=== PATIENT | female | born 1960 | race Caucasian/White ===

== ENCOUNTER → 2017-11-22 | Outpatient (CLI) | payer OTHER ==
[~2017-11-22] MED LIST: ALDACTONE25 MG PO; ALEVE220 MG PO; ANTIBIOTIC; ASPIR 8181 MG PO; ASPIRIN EC81 M1 PO; BENTYL 20 MG TA20 M1 PO; BYDUREON2 MG SQ; CELEXA20 MG PO; COZAAR 50 MG TA50 M1 PO; CRESTOR10 MG PO; CRESTOR20 MG PO; EFFIENT10 MG PO; GLIPIZIDE 10 MG10 MG PO; GLUCOPHAGE XR750 MG PO; GLUCOPHAGE500 MG PO; GLYBURIDE 5 MG T5 M1 PO; HYZAAR 100-12.1 EACH PO; LEVAQUIN 500 M500 M2 PO; LISINOPRIL10 MG PO; LISINOPRIL20 MG PO; NEURONTIN 300300 M1 PO; NITROGLYCERIN0.4 MG SUBLING; NITROQUICK0.4 MG SL; NORCO 5-325 TA1 EAC1 PO; NORVASC10 MG PO; OMEPRAZOLE40 MG PO; OXYCODONE-ACET1 EACH PO; PERCOCET 5-3251 EACH PO; PERCOCET PO; PREDNISONE 20 M20 MG PO; TOPROL XL100 MG PO; TOPROL XL25 MG PO; TOPROL XL50 MG PO; VENTOLIN HFA 1818 GM INH; XANAX 0.5 MG0.5 M1 PO; XANAX 0.5 MG0.5 MG PO
--- NOTE | 2017-11-28 10:11 | PAINCON ---
[address] [address] PAIN MANAGEMENT CONSULTATION Name: DM HERNADEZ Room: [facility]#: [id number] Admission: 11/22/17 Attend Phys: Vito Bowman MD Discharge: Date of : 62 Report #: [id number] THIS REPORT FOR: //name// CC: Steve Bowman DATE OF SERVICE: 11/22/2017 CHIEF COMPLAINT: Pain in the low back area as well as pain down into my legs. FOLLOWUP HISTORY: The patient is a 57-year-old female who has been referred to the Pain Clinic because of pain and discomfort with some pain radiating down into the lower portion of her back bilaterally. The patient denies any significant trauma to start the event. She notes that she is having pain in the lower portion of her back, which she describes as sharp and radiates down into the lower portion of her back. She has pain in the lower portion that radiates down into the anterior portion of her thighs. She notes that if she stands for a length of time at home at the stove, putting on makeup, doing other chores that her pain becomes problematic. Notes that the pain improves if she goes and sits down. After about 5 minutes, she notices her improves and she notices that she can continue. She has difficulty walking for periods of time. If she walks too long, she notes pain and discomfort in the anterior portion of her thighs. When she sits down, the pain and discomfort improves. Notes that if she is in a shopping center, she walks with a cart and leans forward on the cart. When she does this, she has less problems. Standing in line and waiting to check out can cause pain and discomfort, which radiates down into her legs and involves the anterior portion of her legs. Also, has some generalized soreness in the lower portion of her back. Pressing once hand in the posterior portion down around her hip can be problematic. She has some discomfort if she lies on her left hip and there is a sense of soreness and discomfort on the "top portion of her hip bone." She describes it as steady, shooting and rates as 5/10 at this juncture. She has had some pain on occasion down in the bottom of her legs. Sometimes this takes place in bed. She is not sure whether or not this is from muscle cramps and denies that she is being treated for restless legs syndrome. She does have diabetes. Has had some problems with her heart and has had some stents placed. 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 The patient fell a few weeks ago. She noted the pain radiating down into her low back and into her left hip as well as in the groin area. ALLERGIES: IBUPROFEN/ADVIL. CURRENT MEDICATIONS: Ventolin 2 puffs q.6h. p.r.n., Norvasc 10 mg daily, aspirin 81 mg chewable, Celexa 20 mg b.i.d., Bentyl 20 mg q.i.d., Hyzaar 100/12.5 tablets, metformin 750 mg b.i.d., metoprolol 25 mg at bedtime, [facility] [address] [place] [address] PAIN MANAGEMENT CONSULTATION Name: DM HERNADEZ [id number] Admission: 11/22/17 Attend Phys: Vito Bowman MD Discharge: Date of : 62 Report #: [id number] Naprosyn/Aleve 220 q.8h. p.r.n., nitroglycerin 0.4 mg sublingual, omeprazole 40 mg daily, oxycodone 5/325 q.6h. p.r.n. pain, and Crestor 10 mg. PAST MEDICAL HISTORY: Bronchitis, lumbar radicular pain, meralgia paresthetica, chronic low back pain, coronary artery disease, depression/anxiety, irritable bowel syndrome, hyperlipidemia, hypertension, hypercholesterolemia, and diabetes. FAMILY HISTORY: No family history of major medical illness. SOCIAL HISTORY: She is . 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 She is working at this juncture. Tobacco use, smoked and quit smoking 15 years ago. Her mother and brother within about 6 weeks of each other. This was a very stressful event. About 3 years ago, she resumed smoking and has had difficult time smoking since then. Smokes 1 pack of cigarettes per day at this juncture. Has been trying to stop smoking. Denies any significant alcohol intake. PAST SURGICAL HISTORY: Four stent placements in her heart in 2011 and 2013 and cholecystectomy removal in 2009. REVIEW OF SYSTEMS: Questionnaire in the chart indicate generally good health, fatigue and weakness, earache and drainage, chronic sinus problems, heart trouble, kidney stones, muscle pain and cramps, back pain, difficulty walking, otherwise unremarkable. RADIOLOGIC DATA: 1. MRI of the lumbar spine dated 11/05/2017 reveals L2-L3 facet and ligamentous hypertrophy is seen. There is minimal diffuse bulging annulus. Thecal sac measures 10 mm in AP diameter. Neural foramen are patent. 2. L3-L4 facet and ligamentous hypertrophy is seen. There is a minimal diffuse bulging annulus. Thecal sac measures 10 mm AP. No significant foraminal stenosis. 3. L4-L5, there is a 2 mm anterolisthesis of L4. Facet and ligamentous hypertrophy seen. There is a diffuse bulging annulus. The thecal sac measures 8 mm in AP diameter. No significant foraminal stenosis. 4. L5-S1 facet and ligamentous hypertrophy is seen. There is a minimal diffuse bulging annulus. The thecal sac measures 11 mm AP. No significant foraminal stenosis. Impression, mild degenerative changes, x-ray of the lumbar spine three views dated 04/17/2017, the vertebral bodies are normal in height. Interspaces are normal in width. Marked hypertrophic facet joint disease is noted at L4-L5 and L5-S1. Milder changes are seen at L3-L4. Pedicle and transverse processes are normal. SI joints are unremarkable. The adjacent abdomen is unremarkable. Moderate calcification is identified in the aorta. There is evidence of a previous cholecystectomy. PAIN ASSESSMENT: [place] [address] PAIN MANAGEMENT CONSULTATION Name: DM HERNADEZ Room: [facility]#: [id number] Admission: 11/22/17 Attend Phys: Vito Bowman MD Discharge: Date of : 62 Report #: [id number] 1. No significant history of osteoarthritis. No significant history of rheumatoid arthritis. 2. Height 5 feet 5 inches, weight 210 pounds, BMI is 35. 3. Vital signs: Blood pressure 141/67, pulse 75, respiratory rate 16, room air saturation 95%, and temperature 97.8. 4. Pain intensity rated as 7. 5. Fall risk. The patient fell about 2 weeks ago. She is having some pain and discomfort as a result of that. She denies dizziness as a reason. The patient is not on blood thinners. 6. History of hypertension. The patient is being treated appropriate for blood pressure. 7. Opioid therapy greater than 6 weeks. The patient has been receiving some opioid medications over the last 2 weeks after the fall, has not signed a contract with us. 8. Risk assessment tool, pain impact score regarding general activity, mood, walking ability, work relationships, sleep and enjoyment of life is rated at 42/70. 9. The patient does continue to smoke. She has been trying to decrease smoking. We discussed with her the possible complications given that she does already have a prior history of cardiac disease. Alcohol amount is in frequent. PHYSICAL EXAMINATION: GENERAL: The patient is a well-developed, somewhat obese white female. Does appear her stated age. Does have some smell of tobacco in the room. She is alert and oriented x 3. Appears appropriate, but somewhat flat affect. HEENT: Head is atraumatic. Ears, hearing appears normal. No nasal congestion or complaints. Extraocular eye muscles are tachycardia. Sclerae nonicteric. NECK: Without adenopathy or JVD. No masses are appreciated. LUNGS: Clear to auscultation. HEART: Regular rate. Normal S1, S2. ABDOMEN: Protuberant without organomegaly. MUSCULOSKELETAL: Alignment appears within normal limits without significant scoliosis, kyphosis, or lordosis. The patient does walk with an antalgic gait. She is able to stand momentarily on her heels and on her toes. Forward flexion to 45 degrees is limited secondary to some back discomfort as well as some hip soreness and low back soreness. Lumbar extension causes some increased pain in her back and down to the lower portion of her legs. Left and right lateral rotation was somewhat, but not very problematic. NEUROLOGICAL: The upper extremities judged to be 5/5 with muscle strength. Deep tendon reflexes are trace for biceps, triceps, and brachioradialis. The patient states that her sensation to light touch and pinprick are within normal limits. Deep lower extremity, the patient complains of pain and discomfort across the left iliac crest. Complains of some discomfort down into the left groin area. Has pain and discomfort with prolonged standing and walking in the anterior L3-L4 area of her thighs. Deep tendon reflexes are +2 bilaterally and trace to absent in the ankles bilaterally. No significant edema [place] [address] PAIN MANAGEMENT CONSULTATION Name: DM HERNADEZ Room: [facility]#: [id number] Admission: 11/22/17 Attend Phys: Vito Bowman MD Discharge: Date of : 62 Report #: [id number] lower extremities. Muscle strength is judged to be 5/5 in the major muscle groups of the lower extremities. Does complain of pain and worsening of her pain with prolonged standing, walking in the anterior portion of her thighs. No clonus is noted. Anterior spring test is negative. Does have some pain and discomfort in the area when we were pressing on the anterior portion of her iliac crest. Lateral compression of the hips was not problematic. The patient does have some soreness to palpation in the paraspinous muscle area on the left as well as the right in the area of the posterior superior iliac spines. Pressure over the left iliac crest cause the patient to complain and withdraw with complaint of discomfort in the area. Steffen's sign was negative. The patient does have some soreness and decreased mobility in her right hip. IMPRESSION: 1. Low back pain with pain in the anterior thigh areas with prolonged standing and MRI with narrowing in the L4-L5 distribution. 2. History of chronic bronchitis. 3. History of meralgia paresthetica. 4. Tobacco use. 5. Coronary artery disease, status post 4 stents placed in the past. 6. Depression/anxiety. 7. Irritable bowel syndrome. 8. Hyperlipidemia. 9. Hypertension. 10. Hypercholesterolemia. 11. Diabetes. RECOMMENDATIONS: We discussed treatment options with the patient. She does have pain and discomfort in the lower portion of her back with pain radiating down into the anterior portion of her thighs with activity. Her clinical findings are consistent with spinal stenosis. She does have diabetes. States that she is monitoring her blood sugars. We explained that an injection with steroid medications can increase ones blood glucose level. States that she has taken a Medrol Dosepak, which did help improve her pain somewhat without significant changes in her blood sugars. We have discussed the problem with continuous smoking given her cardiac history. We would recommend that she continue to try to decrease this. May consider use of Wellbutrin as one of her antidepressant medications given that Wellbutrin sometimes has been helpful with some patients in decreasing their desire to smoke. The patient will return to the Pain Clinic after precertification at which time we will consider an epidural steroid injection. We have discussed the possible complications of the procedure. A model was used to indicate the area of probable pathology. We reviewed her MRI with her. A video regarding the pathophysiology of lumbar radiculopathy was provided. The patient states that she understands and would like to proceed with an epidural steroid injection at [place] [address] PAIN MANAGEMENT CONSULTATION Name: DM HERNADEZ Room: [facility]#: [id number] Admission: 11/22/17 Attend Phys: Vito Bowman MD Discharge: Date of : 62 Report #: [id number] We would like to thank you for letting us to participate in her care. We hope she continues to improve. <ELECTRONICALLY SIGNED> By: Vito Bowman MD 11/28/17 1011 1302 1417N. Bassem Bowman MD /
== END ==
LOC: M.PC 01:45
DX: M54.5 Low back pain (principal); I25.10 Atherosclerotic heart disease of native coronary artery without angina pectoris; E78.5 Hyperlipidemia, unspecified; I10 Essential (primary) hypertension; E78.00 Pure hypercholesterolemia, unspecified; E11.9 Type 2 diabetes mellitus without complications; F17.200 Nicotine dependence, unspecified, uncomplicated; F32.9 Major depressive disorder, single episode, unspecified; F41.9 Anxiety disorder, unspecified; Z95.5 Presence of coronary angioplasty implant and graft; Z90.49 Acquired absence of other specified parts of digestive tract

== ENCOUNTER → 2017-11-27 | Outpatient (CLI) | payer OTHER ==
--- NOTE | 2017-12-26 08:24 | PAINCON ---
[address] [address] PAIN MANAGEMENT CONSULTATION Name: DM HERNADEZ Room: [facility].#: [id number] Admission: 11/27/17 Attend Phys: Vito Bowman MD Discharge: Date of : 62 Report #: [id number] THIS REPORT FOR: //name// CC: Steve Bowman DATE OF SERVICE: 11/27/2017 CHIEF COMPLAINT: Here for epidural steroid injection. FOLLOWUP HISTORY: The patient is a 57-year-old female who has been seen in the pain clinic because of lumbar radiculopathy. She has returned today for an epidural steroid injection. As you recall, she has pain involving the lower portion of her back with pain radiating down to the posterior portion of her back. Standing for prolonged periods of time can be problematic. She does have some spinal stenosis with 8-mm AP diameter at the L4-L5 interspace. She notes that her pain becomes problematic after about 5 minutes of activity. After sitting down, she notes that her pain improves. She has returned today for an epidural steroid injection. ALLERGIES: IBUPROFEN/ADVIL. CURRENT MEDICATIONS: Ventolin 2 puffs q.6h. p.r.n., Norvasc 10 mg daily, aspirin 81 mg chewable, Celexa 20 mg b.i.d., Bentyl 20 mg q.i.d., Hyzaar 100/12.5 mg tablets, metformin, metoprolol 25 mg at bedtime, Naprosyn/Aleve 220 mg p.r.n., nitroglycerin 0.4 mg sublingual, omeprazole 40 mg daily, oxycodone 5/325 q.6h. p.r.n. pain, and Crestor 10 mg PAIN CLINIC ASSESSMENT: 1. The patient is not being treated for rheumatoid arthritis or osteoarthritis. 2. Height 5 feet 5 inches, weight 214 pounds, BMI is 35. 3. VITAL SIGNS: Blood pressure 123/59, heart rate 75, respiratory rate 16, room air saturation 97%, and temperature 98.2. 4. Pain intensity 7. 5. The patient is not on a blood thinner. 6. History of hypertension. The patient is being treated for hypertension. 7. Opioid therapy greater than 6 weeks. The patient is not receiving opioid medications greater than 6 weeks. 8. Risk assessment tool. 9. Functional assessment tool. 10. The patient denies use of drugs, tobacco use. The patient continues to smoke cigarettes and states that she is having a difficult time, but trying to decrease her tobacco use, alcohol. The patient does not [place] [address] PAIN MANAGEMENT CONSULTATION Name: SATYADM Room: [facility]#: [id number] Admission: 11/27/17 Attend Phys: Vito Bowman MD Discharge: Date of : 62 Report #: [id number] PHYSICAL EXAMINATION: GENERAL: The patient is a well-developed and well-nourished white female. Appears her stated age. The patient is alert and oriented x 3. Her affect appears appropriate. HEENT: Normocephalic, atraumatic. Extraocular eye muscles intact. Hearing normal. Denies any nasal problems. Moist buccal membranes. NECK: Without adenopathy or bruits. ABDOMEN: Nontender. The patient has pain and discomfort, which radiates from the left low back area to the buttocks and in the L5 distribution along her left leg. There is some discomfort in the hip area. The patient has some discomfort in her groin area. IMPRESSION: 1. Low back pain with pain in the anterior thigh after prolonged standing and MRI showing narrowing of the L4-L5 distribution with 8-mm AP diameter. 2. History of chronic bronchitis. The patient continues to smoke. 3. History of meralgia paresthetica. 4. Continued tobacco use. 5. Coronary artery disease, status post 4 stents, which have been placed in the past. 6. Depression/anxiety. 7. Irritable bowel syndrome. 8. Hyperlipidemia. 9. Hypertension. 10. Hypercholesterolemia. 11. Diabetes. RECOMMENDATIONS: We discussed treatment options with the patient. Again, we discussed the possible complications associated with an epidural steroid injection. They include but are not limited to infection, increased muscle soreness, headache, bleeding, nerve damage and the patient elects to proceed. We have also discussed the use of tobacco. This can worsen back pain over the long run. She also has problems with her cardiac/circulatory system. She does have stents in place, decrease in the use of tobacco would be in her best interest. She elects to proceed with the injections. PROCEDURE NOTE: The patient was helped on to the examination table. Her back was sterilely prepped. A fluoroscope was used to identify the L4-L5 interspace. Anterior and lateral positioning was used. A 0.25% bupivacaine was infiltrated into this area. A 17-gauge Tuohy with loss of resistance technique was used to gain access to the epidural space. There was no CSF, heme or paresthesia. A total of 80 mg Depo-Medrol, 40 mg triamcinolone was injected. The patient tolerated the procedure well. There were no complications. She remained in the pain clinic for an appropriate amount of time. She will follow up in the future. A total of 88 seconds fluoroscopy time was used. A Band-Aid was placed injection site. The patient was then taken to the recovery room where she [facility] [address] [place] [address] PAIN MANAGEMENT CONSULTATION Name: DM HERNADEZ Room: [facility]#: [id number] Admission: 11/27/17 Attend Phys: Vito Bowman MD Discharge: Date of : 62 Report #: [id number] remained without problems. She will follow up in the near future. We would like to thank you for letting us participate in her care. We hope she continues to improve. <ELECTRONICALLY SIGNED> By: Vito Bowman MD 12/26/17 0824 1353 1618N. Bassem Bowman MD /nt
== END | disposition home or self-care (01) ==
LOC: M.PC 05:22
DX: M54.16 Radiculopathy, lumbar region (principal); I10 Essential (primary) hypertension; I25.10 Atherosclerotic heart disease of native coronary artery without angina pectoris; E11.9 Type 2 diabetes mellitus without complications; E78.5 Hyperlipidemia, unspecified; K58.9 Irritable bowel syndrome, unspecified; F32.9 Major depressive disorder, single episode, unspecified; F41.9 Anxiety disorder, unspecified; F17.210 Nicotine dependence, cigarettes, uncomplicated; Z88.8 Allergy status to other drugs, medicaments and biological substances; Z95.5 Presence of coronary angioplasty implant and graft; Z87.09 Personal history of other diseases of the respiratory system; Z79.899 Other long term (current) drug therapy; Z79.891 Long term (current) use of opiate analgesic

== ENCOUNTER → 2017-12-20 | Outpatient (CLI) | payer OTHER ==
--- NOTE | 2017-12-26 08:35 | PAINCON ---
[address] [address] PAIN MANAGEMENT CONSULTATION Name: MD HERNADEZ Room: [facility].#: [id number] Admission: 12/20/17 Attend Phys: Vito Bowman MD Discharge: Date of : 62 Report #: [id number] THIS REPORT FOR: //name// CC: Steve Bowman DATE OF SERVICE: 12/20/2017 FOLLOWUP COMPLAINT: The pain is still really bad. FOLLOWUP HISTORY: The patient is a 57-year-old female who has been seen in the pain clinic because of lumbar radiculopathy. She returns today with complaints of continued pain. She did note that the pain on 11/27/2017 was "great." She has noticed a slow return of pain and discomfort at this juncture. It involves her low back, down to her legs. She is experiencing what she describes as "electric shocks" and cramping. She has more pain in the hip than in the groin. She rates it as a 3/10. She is taking Aleve. 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 She would like to undergo an injection. 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 She finds that the oxycodone has been helpful. She claim greater than 50% improvement after the last injection. She continues to have some pain and discomfort with activities such as walking, standing, climbing stairs, prolonged sitting, lifting and bending. She finds that her medications, use of hot and cold can be beneficial as well. She does continue to use tobacco. ALLERGIES: ADVIL. MEDICATIONS: Current medications which are reviewed include albuterol 2 puffs q. 6 hours p.r.n., Norvasc 10 mg, aspirin 81 mg chewable, Celexa 20 mg b.i.d., Bentyl 20 mg q.i.d., Hyzaar 100/12.5 mg tablets, metformin 750 mg b.i.d., metoprolol 25 mg at bedtime, Naprosyn/Aleve 220 p.r.n., nitroglycerin 0.4 mg sublingual, omeprazole 40 mg daily, oxycodone 5/325 p.r.n., Crestor 10 mg. PAIN CLINICAL ASSESSMENT: 1. History of osteoarthritis/rheumatoid arthritis. The patient is not being treated for either of these. 2. Blood pressure 130/66, heart rate 76, respiratory rate 16, room air saturation 95%, temperature 97.8. Height 5 feet 5 inches, weight 213 pounds, BMI is 35. Pain intensity 12/29. 3. Fall risk. The patient has not fallen in the last 3 months. 4. Blood thinner. The patient is not on a blood thinner. 5. Hypertension. The patient is being treated for hypertension. 6. Opioid therapy. The patient is not on opioid therapy, greater than 6 weeks. 7. Functional assessment tool. 8. Risk assessment tool. Pain impact score is 42/70 in regards to [address] [place] [address] PAIN MANAGEMENT CONSULTATION Name: DM HERNADEZ Room: [facility]#: [id number] Admission: 12/20/17 Attend Phys: Vito Bowman MD Discharge: Date of : 62 Report #: [id number] activity, mood, walking ability, normal work, relationships with others, sleep, enjoyment of life. 9. Tobacco. The patient does not smoke. Smoked for 15 years, stopped; and then started smoking. 10. Recreational drugs. The patient denies use of recreational drugs. 11. Alcohol. The patient denies use of alcoholic beverages. PHYSICAL EXAMINATION: GENERAL: The patient is a well-developed female. Somewhat obese. Appearance: Appears her stated age. Orientation: The patient is alert and oriented x 3. Affect: The patient's affect appears appropriate. HEENT: Normocephalic, atraumatic. Extraocular eye muscles intact. No nasal complaints. Buccal membranes, moist. Hearing within normal limits. NECK: Without masses. LUNGS: Clear to auscultation. HEART: Regular rate. ABDOMEN: Nontender, somewhat protuberant. MUSCULOSKELETAL: Normal alignment. Lower extremity, the patient has pain and discomfort in the left buttocks with pain in the groin area and down into the left leg. Positive straight leg raise on the left. IMPRESSION: 1. Low back pain in the anterior thigh after prolonged standing. An MRI, which shows L4-L5 narrowing to 8 mm anteroposterior. 2. History of chronic bronchitis. The patient continues to smoke. 3. History of meralgia paresthetica. 4. Coronary artery disease, status post four stents that have been placed. 5. Depression/anxiety. 6. Irritable bowel syndrome. 7. Hyperlipidemia. 8. Hypercholesterolemia. 9. Hypertension. 10. Diabetes. RECOMMENDATIONS: We discussed treatment options with the patient. Risks and benefits of an epidural steroid injection were again reviewed. Possible complications were discussed. The patient has greater than 50% improvement after the epidural steroid injections. At this juncture, she has a job to do. 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 She declines an injection today and would like to return when she is able to get the injection, when she does not have to work. She finds that oxycodone 5 mg tablets have been helpful. She would like to be dispensed some oxycodone for the interval until she undergoes her injection. We will provide her with a script for oxycodone 5/325 mg one [place]. [place] [address] PAIN MANAGEMENT CONSULTATION Name: SATYADM Room: [facility]#: [id number] Admission: 12/20/17 Attend Phys: Vito Bowman MD Discharge: Date of : 62 Report #: [id number] follow up in the near future. We would like to thank you for letting us participate in her care. We hope she continues to improve. <ELECTRONICALLY SIGNED> By: Vito Bowman MD 12/26/17 0835 1459 0747N. Bassem Bowman MD /[facility]
== END ==
LOC: M.PC 02:38
DX: M54.16 Radiculopathy, lumbar region (principal); I25.10 Atherosclerotic heart disease of native coronary artery without angina pectoris; F32.9 Major depressive disorder, single episode, unspecified; F41.9 Anxiety disorder, unspecified; E78.5 Hyperlipidemia, unspecified; E78.00 Pure hypercholesterolemia, unspecified; I10 Essential (primary) hypertension; E11.9 Type 2 diabetes mellitus without complications; Z95.5 Presence of coronary angioplasty implant and graft

== ENCOUNTER → 2017-12-25 | Outpatient (CLI) | payer OTHER ==
--- NOTE | 2018-01-02 14:39 | PAINCON ---
[address] [address] PAIN MANAGEMENT CONSULTATION Name: SATYADM Cui Room: [facility].#: [id number] Admission: 12/25/17 Attend Phys: Vito Bowman MD Discharge: Date of : 62 Report #: [id number] THIS REPORT FOR: //name// CC: Steve Bowman DATE OF SERVICE: 12/25/2017 FOLLOWUP COMPLAINT: Pain down into the left lower back and leg with weakness. FOLLOWUP HISTORY: The patient is a 57-year-old female. She has been seen in the pain clinic. She suffers from lumbar radiculopathy. She has been experiencing some pain down in the L5-S1 area as well as in the L4-L5 area. She has been experiencing weakness. Rates this discomfort as a 3-4/10. She feels that the pain in the front of her leg has improved. At this juncture, she is having more pain that is down in the posterior portion of her leg. There is some weakness, tenderness, and the pain radiates from the posterior portion of her buttocks down into the left leg. She notes that the pain worsens by the time evening arouse around. She denies any new trauma. Denies any significant change in her bowel or bladder function. Continues to take nonsteroidal anti-inflammatory medications like Aleve. She also used the oxycodone and takes this whenever the pain is problematic. She has had greater than 50% improvement in her pain and that in the front part of her leg has almost resolved. Pain is most problematic is that which is radiating down the posterior portion of her leg. It is worsens with standing, walking, climbing stairs, prolonged sitting with lifting and bending. Also, finds that use of hot and cold packs can be beneficial. She states that she is trying to decrease the amount of tobacco she is smoking. CURRENT REVIEW OF HER MEDICATIONS: Today indicate albuterol puffs q. 6 hours p.r.n., Norvasc 10 mg p.o., aspirin 81 mg chewable, Celexa 20 mg b.i.d., Bentyl 20 mg q.i.d., Hyzaar 100/12.5 mg tablets, metformin 750 mg b.i.d., metoprolol 25 mg at bedtime, naproxen/Aleve 220 mg p.r.n., nitroglycerin 0.4 mg sublingual, omeprazole 40 mg daily, oxycodone 5/325 p.r.n., Crestor 10 mg. PAIN CLINIC ASSESSMENT: 1. The patient denies history of osteoarthritis or rheumatoid arthritis treatment. 2. Blood pressure is 144/58, pulse 74, respiratory rate 16, room air saturation 97%, temperature 98.6, height 5 feet 5 inches, weight 209 pounds, BMI is 35. 3. Pain intensity judged as a 3-4. 4. The patient denies any problems with falling. 5. Blood thinner. The patient is not on a blood thinner. 6. History of hypertension. The patient is being treated for hypertension. 7. Opioid greater than 6 weeks. The patient is not on opioid therapy for [address] [place] [address] PAIN MANAGEMENT CONSULTATION Name: DM HERNADEZ [id number] Admission: 12/25/17 Attend Phys: Vito Bowman MD Discharge: Date of : 62 Report #: [id number] greater than 6 weeks. 8. Functional assessment tool. 9. Risk assessment tool. 10. Recreational drug use. The patient denies use of recreational drugs. 11. Tobacco: The patient continues to smoke and striving for decrease in cessation of tobacco use. 12. Alcohol. The patient denies chronic use of alcohol on a regular basis. PHYSICAL EXAMINATION: GENERAL: The patient is a well-developed female. She is somewhat obese. Appearance, the patient appears her stated age. Orientation, the patient is oriented and alert x 3. HEENT: Normocephalic, atraumatic. Extraocular muscles intact. Hearing within normal limits. Buccal membranes moist. No nasal complaints. NECK: Without adenopathy or masses. LUNGS: Clear to auscultation. HEART: Regular rate. S1, S2. ABDOMEN: Nontender, somewhat protuberant. MUSCULOSKELETAL: Normal alignment lower extremity. The patient is experiencing pain which is radiating down in the L5-S1 distribution involving the left leg and buttocks. She also has positive straight leg raise on the left. IMPRESSION: 1. Low back pain in the posterior thigh with L5-S1 pain and discomfort as well as L4-L5 narrowing to 8 mm anterior posteriorly. 2. History of chronic bronchitis. The patient continues to smoke. 3. History of neurologic meralgia paresthetica. 4. Coronary artery disease, status post 4 stents that have been placed. 5. Depression/anxiety. 6. Irritable bowel syndrome. 7. Hyperlipidemia. 8. Hypercholesterolemia. 9. Hypertension. 10. Diabetes. RECOMMENDATIONS: We discussed treatment options with the patient. Risks and benefits of an epidural steroid injection were again reviewed. Possible complication of the procedure were discussed. The patient has noted 70%-80% improvement in her pain in the anterior portion of her leg. Continues to have pain and discomfort radiating down into the posterior portion of her leg in the L5-S1 distribution. We will proceed with an epidural steroid injection. Risks and benefits of the procedure, which are but not limited to worsening of pain, nerve damage, no improvement in pain, spinal headache, infection. PROCEDURE NOTE: The patient was taken to the procedure area. She was then assisted in getting on the examination table. Her [place] [address] PAIN MANAGEMENT CONSULTATION Name: SATYADM See Room: [facility]#: [id number] Admission: 12/25/17 Attend Phys: Vito Bowman MD Discharge: Date of : 62 Report #: [id number] with a Betadine solution. Fluoroscopy using an anterior, posterior as well as a lateral imaging was used to target the area. The L5-S1 area had been sterilely prepped at the left side. This area was then infiltrated with 0.25% bupivacaine. A 17-gauge Tuohy with loss of resistance technique was used to gain access to the epidural space. There was no CSF, heme or paresthesia. Total of 80 mg Depo-Medrol, 40 mg of triamcinolone, and 2 mL of 0.25% bupivacaine was injected. The patient tolerated the procedure well. There were no complications. We would like to thank you for letting us participate in her care. We hope she continues to improve. <ELECTRONICALLY SIGNED> By: Vito Bowman MD 01/02/18 1439 1427 0513N. Bassem Bowman MD /SHARON
== END | disposition home or self-care (01) ==
LOC: M.PC 01:44
DX: M54.16 Radiculopathy, lumbar region (principal); I10 Essential (primary) hypertension; I25.2 Old myocardial infarction; I25.10 Atherosclerotic heart disease of native coronary artery without angina pectoris; E78.00 Pure hypercholesterolemia, unspecified; E11.9 Type 2 diabetes mellitus without complications; F32.9 Major depressive disorder, single episode, unspecified; F41.9 Anxiety disorder, unspecified; F17.210 Nicotine dependence, cigarettes, uncomplicated; J44.9 Chronic obstructive pulmonary disease, unspecified; Z86.69 Personal history of other diseases of the nervous system and sense organs; Z79.891 Long term (current) use of opiate analgesic; Z79.82 Long term (current) use of aspirin; Z79.899 Other long term (current) drug therapy

== ENCOUNTER → 2018-01-03 | Outpatient (CLI) | payer OTHER ==
--- NOTE | 2018-01-09 14:40 | PAINCON ---
[facility] [address] [place] [address] PAIN MANAGEMENT CONSULTATION Name: DM HERNADEZ Room: [facility].#: [id number] Admission: 01/03/18 Attend Phys: Vito Bowman MD Discharge: Date of : 62 Report #: [id number] THIS REPORT FOR: //name// CC: Steve Bowman DATE OF SERVICE: 01/03/2018 CHIEF COMPLAINT: Low back pain. FOLLOWUP HISTORY: The patient is a 57-year-old female who has been seen in the pain clinic because of lumbar radiculopathy. She underwent an epidural steroid injection on 12/25/2017. She is not sure that she gleaned as much benefit from this as she would like to have. 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 She has had some excruciating pain. 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 She found the pain clinic indicating that her pain has increased. She has come in for evaluation. States that she is having difficulty walking because of the cramping sensation in her lower extremity. Notes that there is some increased discomfort when she is standing and with activity. Has continued to use Aleve. Feels that the oxycodone 5/325 b.i.d. are not truly resting her pain. She was interested in options, which were available. ALLERGIES: IBUPROFEN/ADVIL. CURRENT MEDICATIONS: Include albuterol puffs q. 6 hours p.r.n., Norvasc 10 mg p.o., aspirin 81 mg chewable, Celexa 20 mg b.i.d., Bentyl 20 mg q.i.d., Hyzaar 100/12.5 mg tablets, metformin 750 mg b.i.d., metoprolol 25 mg at bedtime, Naprosyn/Aleve 220 mg p.r.n., nitroglycerin 0.4 mg sublingual, omeprazole 40 mg daily, oxycodone 5/325 p.r.n., Crestor 10 mg. PAIN CLINIC ASSESSMENT: 1. The patient is being treated for osteoarthritis and rheumatoid arthritis. 2. Height 5 feet 5 inches, weight 210 pounds, BMI is 30. 3. VITAL SIGNS: Blood pressure 123/51, heart rate 71, respiratory rate 16, room air saturation 94%, temperature 98 degrees. 4. Pain intensity 9-10. 5. Fall risk. The patient has not fallen in the last 3 months. 6. Blood thinner. The patient is not on a blood thinner. 7. Hypertension. The patient is being treated for hypertension. 8. Opioid therapy greater than 6 weeks. The patient is using opioid medications, oxycodone 5/325. 9. Risk assessment tool. 10. Functional assessment tool. 11. Recreational drug use. The patient [place] [address] PAIN MANAGEMENT CONSULTATION Name: DM HERNADEZ Room: [facility]#: [id number] Admission: 01/03/18 Attend Phys: Vito Bowman MD Discharge: Date of : 62 Report #: [id number] 12. Tobacco: The patient does admit to using tobacco and continues to smoke. 13. Alcohol. The patient denies frequent use of alcoholic beverages. PHYSICAL EXAMINATION: GENERAL: The patient is a well-developed female. She is somewhat obese. Appearance: The patient appears her stated age. She has a painful uncomfortable expression on her face with movement. Orientation: The patient is alert and oriented x 3. HEENT: Normocephalic, atraumatic. Extraocular eye muscles intact. Hearing within normal limits. Buccal membranes moist. No nasal complaints. NECK: Without adenopathy or masses. LUNGS: Somewhat decreased to auscultation. HEART: Regular rate, normal S1, S2. ABDOMEN: Nontender, somewhat protuberant. MUSCULOSKELETAL: The patient complains of pain in the lower extremities. She is experiencing pain, which radiates down in the L5-S1 distribution of her left leg and buttocks. Straight leg raises remains positive on the left. IMPRESSION: 1. Low back pain in the posterior thigh with L5-S1 pain and discomfort. MRI shows narrowing in the L4-L5 to 8 mm anterior, posterior. 2. History of chronic bronchitis. The patient continues to smoke. 3. History of neurologic findings of meralgia paresthetica. 4. Coronary artery disease, status post 4 stents that have been placed. 5. Depression/anxiety. 6. Irritable bowel syndrome. 7. Hyperlipidemia. 8. Hypercholesterolemia. 9. Hypertension. 10. Diabetes. RECOMMENDATIONS: We discussed treatment options with the patient. She is still having a significant amount of pain at this juncture. I have not noticed any new changes in bowel or bladder function. We will have the patient try gabapentin 300 mg and increase it to a goal of 1800 mg. She will call us if she has any problems with that medication. A script for oxycodone 5/325 one p.o. q. 6 hours p.r.n. has been provided. The patient also has some history of anxiety per her and her 's admission. We will try Zanaflex or Xanax 0.5 mg p.o. daily. Hopefully, this helps with some of the anxiety associated with her exacerbation of pain. She will call us if she has any problems with her medications. The patient will not use gabapentin or Xanax [place] [address] PAIN MANAGEMENT CONSULTATION Name: DM HERNADEZ Room: [facility]#: [id number] Admission: 01/03/18 Attend Phys: Vito Bowman MD Discharge: Date of : 62 Report #: [id number]. We would like to thank you for letting us participate in her care. We hope she continues to improve. <ELECTRONICALLY SIGNED> By: Vito Bowman MD 01/09/18 1440 1259 11Vito Bowman MD /SHARON
== END ==
LOC: M.PC 08:58
DX: M54.5 Low back pain (principal); I10 Essential (primary) hypertension; M06.9 Rheumatoid arthritis, unspecified

== ENCOUNTER → 2018-03-14 | Outpatient (CLI) | payer OTHER ==
--- NOTE | 2018-04-03 13:50 | PAINCON ---
[address] [address] PAIN MANAGEMENT CONSULTATION Name: DM HERNADEZ Room: [facility].#: [id number] Admission: 03/14/18 Attend Phys: Vito Bowman MD Discharge: Date of : 62 Report #: [id number] THIS REPORT FOR: //name// CC: Steve Bowman DATE OF SERVICE: 03/14/2018 FOLLOWUP COMPLAINT: Pain in the low back with pain radiating down into the legs. I received 50-60% relief after the last injection. Pain has improved also since receiving B12 shots. I have a B12 deficiency. I think it has something to do without much pain I was feeling as well. I have been off work for a while because of my condition. Find that the oxycodone, Aleve, alprazolam and gabapentin are helpful. Pain is 3-4/10. ALLERGIES: IBUPROFEN/ADVIL. MEDICATIONS: Albuterol puffs q. 6 hours p.r.n., Norvasc 10 mg, aspirin 81 mg chewable, Celexa 20 mg b.i.d., Bentyl 20 mg q.i.d., Hyzaar 100/12.5 mg tablets, metformin 750 mg b.i.d., metoprolol 25 mg at bedtime, Naprosyn/Aleve 220 mg p.r.n., nitroglycerin 0.4 mg sublingual, omeprazole 40 mg daily, oxycodone 5/325 p.r.n., Crestor 10 mg. PAIN CLINIC ASSESSMENT: 1. The patient has been treated for osteoarthritis and rheumatoid arthritis. 2. Height 5 feet 5 inches. Weight 211 pounds, BMI is 30. 3. VITAL SIGNS: Blood pressure is 134/51, heart rate 70, respiratory rate 16, room air saturation 94%, temperature 98.4. 4. Pain intensity 3-4/10. 5. Fall risk. The patient has not fallen in the last 3 months. 6. Blood thinner. The patient is not on a blood thinning medication. 7. Hypertension. The patient is being treated for hypertension. 8. Opioid therapy greater than 6 weeks. The patient is using opioid medications of oxycodone 5/325. 9. Risk assessment tool. 10. Functional assessment tool. 11. Recreational drug use. The patient denies use of recreational drugs. 12. Tobacco: The patient does continue to smoke tobacco products. 13. Alcohol: The patient denies frequent use of alcoholic beverages. PHYSICAL EXAMINATION: GENERAL: The patient is a well-developed white female. She appears her stated age. She is somewhat obese. She is alert and oriented x 3. Her speech is fluent. HEENT: Normocephalic, atraumatic. Extraocular eye muscles intact. Hearing is within normal limits. Buccal membranes are moist. [place]ae [place] [address] PAIN MANAGEMENT CONSULTATION Name: DM HERNADEZ Room: [facility]#: [id number] Admission: 03/14/18 Attend Phys: Vito Bowman MD Discharge: Date of : 62 Report #: [id number] NECK: Without adenopathy or masses. LUNGS: Clear to auscultation with decreased sounds. Given the patient's history of smoking, somewhat and most probable COPD ____ type findings. HEART: Regular rate, normal S1, S2. ABDOMEN: Nontender, somewhat protuberant. EXTREMITIES: Upper extremity is judged to be 5/5 for the major muscle groups in the upper extremity without sensory changes, lower muscle strength judged to be 5/5 for the major muscle groups in the lower portion of the body with experiencing pain and discomfort radiating down into the L4-L5 distribution on her legs bilaterally. MUSCULOSKELETAL: Without significant scoliosis, kyphosis or lordosis. IMPRESSION: 1. Low back pain with pain involving the L5-S1 distribution. MRI shows narrowing of L4-L5 to 8 mm anterior, posterior. 2. History of chronic bronchitis. The patient continues to smoke. She has been advised to decrease. 3. History of neurologic findings, in the past consistent with meralgia paresthetica. 4. Coronary artery disease, status post 4 stents. 5. Depression. 6. Anxiety. 7. Irritable bowel syndrome. 8. Hyperlipidemia. 9. Hypercholesterolemia. 10. Hypertension. 11. Diabetes. RECOMMENDATIONS: We discussed treatment options with the patient. Risks and benefits of the epidural steroid injection were again reviewed. The patient states that in the past, she has gleaned significant improvement in pain after the injection. She has returned today with the hope of undergoing an epidural steroid injection. She continues to have pain and discomfort, which is radiating down the posterior portion of her legs in the L4-L5 distribution on both left and right. This worsened over the past 2 weeks. She has noted some improvement in her neurologic symptoms now that she has been treated with B12. She would like to proceed with an epidural steroid injection at this juncture to help glean benefit from this. We discussed a retreatment complications, which could include but are not limited to infection, increased muscle soreness, headache, bleeding, paralysis, worsening of pain, no improvement in pain and the patient elects to proceed. PROCEDURE NOTE: The patient was taken to the procedure area. She was assisted in getting on the examination table. She was placed in the prone position. Fluoroscopy was used to identify the L5-S1 area. Anterior, [place] [address] PAIN MANAGEMENT CONSULTATION Name: DM HERNADEZ Room: [facility]#: [id number] Admission: 03/14/18 Attend Phys: Vito Bowman MD Discharge: Date of : 62 Report #: [id number] lateral viewing was used. The patient's back was sterilely prepped with a Betadine solution. A 0.25% bupivacaine was used to infiltrate the midline area. A 17-gauge Tuohy with loss of resistance technique using the midline approach was provided. A total of 80 mg Depo-Medrol, 40 mg triamcinolone and 2 mL of 0.25% bupivacaine was injected. The patient tolerated the procedure well. There were no complications. There was no bleeding. A Band-Aid was placed. The patient was then escorted to the recovery room where she remained for an appropriate amount of time. She will follow up in the future as needed. She will monitor blood glucose level. We would like to thank you for letting us participate in her care. We hope she continues to improve. <ELECTRONICALLY SIGNED> By: Vito Bowman MD 04/03/18 1350 1436 1802N. Bassem Bowman MD /brendon
== END | disposition home or self-care (01) ==
LOC: M.PC 04:36
DX: M54.16 Radiculopathy, lumbar region (principal); G89.29 Other chronic pain; I10 Essential (primary) hypertension; I25.10 Atherosclerotic heart disease of native coronary artery without angina pectoris; I25.2 Old myocardial infarction; E11.9 Type 2 diabetes mellitus without complications; E78.5 Hyperlipidemia, unspecified; F32.9 Major depressive disorder, single episode, unspecified; F41.9 Anxiety disorder, unspecified; Z87.09 Personal history of other diseases of the respiratory system; Z86.69 Personal history of other diseases of the nervous system and sense organs; Z87.19 Personal history of other diseases of the digestive system; Z79.891 Long term (current) use of opiate analgesic; Z98.890 Other specified postprocedural states; Z79.899 Other long term (current) drug therapy; Z88.8 Allergy status to other drugs, medicaments and biological substances; Z79.82 Long term (current) use of aspirin

== ENCOUNTER → 2018-04-04 | Outpatient (CLI) | payer OTHER ==
--- NOTE | 2018-04-18 15:18 | PAINCON ---
[facility] [address] [place] [address] PAIN MANAGEMENT CONSULTATION Name: DM HERNADEZ Room: [facility].#: [id number] Admission: 04/04/18 Attend Phys: Vito Bowman MD Discharge: Date of : 62 Report #: [id number] THIS REPORT FOR: //name// CC: Steve Bowman DATE OF SERVICE: 04/04/2018 FOLLOWUP COMPLAINT: Here for medication renewal. FOLLOWUP HISTORY: The patient is a 57-year-old female who has been followed in the pain clinic because of chronic pain. She has undergone epidural steroid injections and gleaned benefits from these. At this juncture, she continues to have some pain and discomfort with pain in her back down into her left leg, hip, and buttocks. Rates it as a 7/10. Finds that the Percocet has been helpful. She would like to increase it from 5 mg twice a day to 5 mg t.i.d. She feels that this would be more helpful. She has some pain and discomfort in the lower portion of her back. In the left lower back area, she can palpate and feel a nodule that is highly movable under her skin. She has had some nodules on other parts of her body, which were thought to be lipomas. Feels that the gabapentin is still helpful at bedtime. She has returned today for renewal of her medications. ALLERGIES: IBUPROFEN, ADVIL. CURRENT MEDICATIONS: Albuterol 2 puffs p.r.n., Norvasc 10 mg, aspirin 81 mg chewable, Celexa 20 mg b.i.d., Bentyl 20 mg q.i.d., Hyzaar 100/12.5, metformin 750 mg b.i.d., metoprolol 25 mg at bedtime, Naprosyn/Aleve 220 mg p.r.n., nitroglycerin 0.4 mg, sublingual, omeprazole 40 mg daily, oxycodone 5/325 one p.o. b.i.d., and Crestor 10 mg. PAIN CLINIC ASSESSMENT: 1. The patient has been treated for osteoarthritis and rheumatoid arthritis. 2. Height 5 feet 5 inches, weight 210 pounds, BMI is 35. 3. Vital signs: Blood pressure 128/52, heart rate 75, respiratory rate 16, room air saturation 92%, temperature 98.4. 4. Pain intensity 7/10. 5. Fall risk. The patient has not fallen in the last 3 months. 6. Blood thinner. The patient is not on a blood thinning medication. 7. Hypertension. The patient is being treated for hypertension. 8. Opioid therapy greater than 6 weeks. The patient is using opioid medication and gets her medication from 1 source of the pain clinic. 9. Risk assessment tool. 10. Functional assessment tool. 11. Recreational drug use. The patient denies [place] [address] PAIN MANAGEMENT CONSULTATION Name: DM HERNADEZ Room: [facility]#: [id number] Admission: 04/04/18 Attend Phys: Vito Bowman MD Discharge: Date of : 62 Report #: [id number] 12. Tobacco. The patient does continue to smoke tobacco products. 13. Alcohol: The patient denies frequent use of alcoholic beverages. PHYSICAL EXAMINATION: GENERAL: The patient is a well-developed white female, appears her stated age. She is somewhat obese. She is alert and oriented x 3. Her speech is fluent. She is up standing and walking around the room with her hand on her left low back area. HEENT: Normocephalic, atraumatic. Extraocular eye muscles intact. Hearing is within normal limits. Mucous membranes are moist. Sclerae are nonicteric. NECK: Without adenopathy or masses. LUNGS: Clear to auscultation with deep breath sounds. The patient has a history of chronic obstructive pulmonary disease. HEART: Regular rate. S1, S2. ABDOMEN: Nontender, somewhat protuberant. EXTREMITIES: Upper extremity, judged to be 5/5 for the major muscle groups. Lower portion of the back, the patient complains of pain and discomfort in her low back. She sits in a chair with her left buttocks in the middle of the chair and the right buttock somewhat extended from the chair. Use her hands to stand go from sitting to a standing position. Complains of pain and discomfort in the lower portion of her back. Palpation in the area of the posterior superior iliac spine and lumbar L5-S1 paraspinous area reveal a highly movable nodule, which is freely movable in the disk space and feels consistent with what I have felt in the past, which were lipomas. Palpation of this area causes reproduction of pain and discomfort in the patient's left low back area. IMPRESSION: 1. Low back pain involving the L5-S1 distribution. MRI shows narrowing of the L4-L5 area to 8 mm. 2. Pain in the low back area appears consistent with a lipoma, which is highly and easily movable. This causes increased pain in the low back area for the patient to point tenderness. 3. History of neurologic findings in the past consistent with meralgia paresthetica. 4. Coronary artery disease, status post 4 stents. 5. Depression. 6. Anxiety. 7. Irritable bowel syndrome. 8. Hyperlipidemia. 9. Hypercholesterolemia. 10. Hypertension. 11. Diabetes. RECOMMENDATIONS: We discussed the treatment options with the patient. Given that she has an item which is highly movable in the lower portion of her back and it feels like it is consistent with a lipoma. [place] [address] PAIN MANAGEMENT CONSULTATION Name: SATYADM Cui Room: [facility]#: [id number] Admission: 04/04/18 Attend Phys: Vito Bowman MD Discharge: Date of : 62 Report #: [id number] follow up with a surgeon. If she would have this removed, she might notice an improvement in her pain and discomfort. It appears that this item does cause quite a bit of discomfort in the low back area. She will continue with oxycodone 5 mg 1 p.o. t.i.d. She will also continue with her gabapentin 600 mg at bedtime and will call us if she has any new concerns. We would like to thank you for letting us participate in her care. A script for her medications of oxycodone 5/325 one p.o. t.i.d. #90, gabapentin 300 mg. The patient states that she gets this medication from her primary care physician. <ELECTRONICALLY SIGNED> By: Vito Bowman MD 04/18/18 1518 1543 1850N. Bassem Bowman MD /SHARON
== END ==
LOC: M.PC 01:28
DX: I10 Essential (primary) hypertension (principal); E11.9 Type 2 diabetes mellitus without complications; M54.5 Low back pain; G89.29 Other chronic pain; E78.00 Pure hypercholesterolemia, unspecified; E78.5 Hyperlipidemia, unspecified; I25.10 Atherosclerotic heart disease of native coronary artery without angina pectoris; M79.605 Pain in left leg; F32.9 Major depressive disorder, single episode, unspecified; F41.9 Anxiety disorder, unspecified; K58.9 Irritable bowel syndrome, unspecified; Z79.899 Other long term (current) drug therapy

== ENCOUNTER 2019-03-19 08:43 | Observation (INO) | payer OTHER ==
[~2019-03-19] VITALS: Ht 165.1 cm; Wt 97.5 kg
[2019-03-19] VITALS (12 sets, daily range): BP systolic 118–156; BP diastolic 36–81
[2019-03-19 09:42] LABS: HEMATOCRIT 39.6 % (37.0-47.0); HEMOGLOBIN 13.3 gm/dL (12.0-15.0); MCH 30.6 pg (26.0-34.0); MCHC 33.7 g/dL (28.0-37.0); MCV 90.9 fL (80.0-100.0); MPV 7.7 fl. (7.2-11.1); RBC 4.36 mil/uL (4.20-5.00); RDW-CV 15.1 % (10.5-14.5); WBC 5.7 thou/uL (4.0-11.0)
[2019-03-19 09:53] LABS: APTT 27.2 Seconds (25.0-31.3); PROTIME 9.8 Seconds (9.20-11.50)
[2019-03-19 10:06] LABS: ANION GAP 8 mmol/L (7-16); BUN 15 mg/dL (7-18); CALCIUM 9.6 mg/dL (8.5-10.1); CHLORIDE 102 mmol/L (98-107); CO2 26 mmol/L (21-32); CREATININE 1.1 mg/dL (0.6-1.3); GLUCOSE 152 mg/dL (70-99); SODIUM 136 mmol/L (136-145)
[2019-03-19 10:10] LABS: ALBUMIN 3.4 g/dL (3.4-5.0); ALKALINE PHOSPHATASE 98 U/L (46-116); CHOLESTEROL 89 mg/dL (<200); HDL CHOLESTEROL 25 mg/dL (>40); LDL CHOLESTEROL 51 mg/dL (<100); SERUM ASSESSMENT Clear; SGOT 16 U/L (15-37); SGPT 24 U/L (30-65); TC:HDL 3.6 Ratio (Not establshd); TOTAL BILIRUBIN 0.2 mg/dL (<0.1-1.0); TOTAL PROTEIN 7.6 g/dL (6.4-8.2); TRIGLYCERIDE 69 mg/dL (<150); VLDL 14 mg/dL (<40)
--- NOTE | 2019-03-19 11:31 | EKG ---
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
--- NOTE | 2019-03-19 15:00 | NUR ---
POST HEART CATH TO 210 TELEPHONE REPORT GIVEN PRIOIR TO ARRIVAL ORIENTED TO RM AND CALL LIGHT DENIES PAIN VS AND CARDIAC STRIP COMPLETED AND CHARTED
--- NOTE | 2019-03-19 16:25 | EKG ---
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 Auditor: : 1960 Requested By: Juan Manuel Ospina Order Number: [id number] Reading MD: Juan Manuel Ospina Measurements Intervals [place] Rate: 60 P: 61 [place]: 188 QRS: 1 QRSD: 94 T: 62 QT: 436 QTc: 436 Interpretive Statements Sinus rhythm Low voltage, precordial leads Compared to ECG 03/19/2019 09:39:10 No significant changes Electronically Signed On 03-19-2019 16:25:05 CDT by Juan Manuel Ospina [email or web address] <ELECTRONICALLY SIGNED> By: Juan Manuel Ospina MD, [facility] 03/19/19 1625 1310 1310 Juan Manuel Ospina MD, FAC /EPI
--- NOTE | 2019-03-19 18:40 | CARD ---
[address] [address] CARDIAC CATH REPORT Name: DM HERNADEZ Room: [address] Gael Burch#: [id number] Admission: 03/19/19 Attend Phys: Juan Manuel Ospina MD, F Discharge: Date of : 62 Report #: [id number] THIS REPORT FOR: //name// APPROVED REPORT Study performed: 03/19/2019 11:07:17 Patient Details Patient Status: Out-Patient Room #: The patient is a 58 year-old female Event Personnel Juan Manuel Ospina Compliance Mgr, Samira Leonard RN RN, Presley Sales AIRPLANE DISPATCHER Monitor, Sanjeev Oneill AIRPLANE DISPATCHER Scrub, Steve Rader (R) Monitor Procedures Performed cath pci Indication Chest pain Risk Factors Hypercholesterolemia, Coronary Artery DiseaseHypertension, Tobacco History () Previous Procedures/Diagnoses Previous PCI, Previous WI Admission/Lab Medications/Medications given during procedure Glycoprotein IllbIlla Inhibitors, Heparin Unfract. Procedure Narrative The patient was brought electively to the Cardiac Catheterization Laboratory and was prepped and draped in a sterile manner. The right femoral was infiltrated with 1% Lidocaine subcutaneous anesthesia. A 6fr Ultimum Sheath sheath was inserted into the right femoral artery. Coronary angiography was performed using coronary diagnostic catheters. The right coronary system was accessed and visualized with a Diagnostic - JR4 catheter. The left coronary system was accessed and visualized with a Diagnostic - JL4 catheter. The left ventricle was accessed and visualized with a Diagnostic - ANG PIG catheter. Left ventricular/Aortic Valve gradient assessed via catheter pullback. Left ventriculogram was performed [place] [address] CARDIAC CATH REPORT Name: DM HERNADEZ Room: [address] Marcin#: [id number] Admission: 03/19/19 Attend Phys: Juan Manuel Ospina MD, F Discharge: Date of : 62 Report #: [id number] Closure device was deployed with a 6 Fr Angioseal STS 6Fr. The patient tolerated the procedure well and there were no complications associated with the procedure. There was no hematoma. Intraoperative Conscious Sedation Sedation start time: 1200 Case end Time: 1239 Fentanyl 50 mcg Versed 4 mg Fluoro Time: 3.1 minutes Dose: DAP 80161 cGycm2 1080 mGy Contrast Type and Amount: Omnipaque 230 ml Coronary Angiography The patient's coronary anatomy is co- dominant. Diagnostic Cath Left Main 30% distal stenosis LAD Proximal stent with no restenosis. Diagonal 1 occluded and filled by collaterals Circumflex distal 80% stenosis Right Coronary Stent noted in mid rca without restenosis Ramus 80% ostial stenosis Left Ventriculography The left ventricular ejection fraction is estimated to be 30-35%. Left ventricular wall motion abnormalities are present. There is 1+ mitral insufficiency. Akinesis noted of the mid and distal anterior wall and apex. Hemodynamics The aortic pressure is 141/59 mmHg with a mean of 88 mmHg. The left ventricular pressure is 148/10 mmHg with a mean of mmHg. The left ventricular end diastolic pressure is 12 mmHg. There was no gradient across the aortic valve upon pullback. Pullback from the left ventricle to the aorta revealed no gradient across the aortic valve. PCI Technique Lesion Anticoagulation was achieved with Heparin. Bolus of IV aggrastat given Percutaneous coronary intervention was performed on the distal circumflex artery segment. The lesion stenosis prior to intervention was 80% with CM 3 flow. A 6FR XB 3.5 100CM Guide Catheter was used to engage the lm ostium. A IG: BMW 190cm Interventional Guidewire was used to [place] [address] CARDIAC CATH REPORT Name: DM HERNADEZ Room: [address]#: [id number] Admission: 03/19/19 Attend Phys: Juan Manuel Ospina MD, F Discharge: Date of : 62 Report #: [id number] STENT DEPLOYMENT A drug-eluting stent Anthony RX Stent 2.0X15mm was inserted and inflated up to 8.00atm for 12seconds. Repeat angiography revealed the following post-stent deployment results: 0% stenosis. Additional Inflation: 9.00atm for 16seconds. Additional Inflation: 13.00atm for 13seconds. Final angiography reveals 0 % stenosis with CM 3 flow. Conclusion 1. LVEF 30-35% 2. No restenosis of stent in the proximal lad 3. 80% stenosis of the ostium of the ramus artery 3. 80% stenosis of the distal circumflex artery 4. No restenosis of stents in the rca 5. successful placement of drug eluting stent in the circumflex artery Recommendations Cardiac Rehabilitation Referral Aggressive Medical Therapy Medications Administered Clopidogrel <ELECTRONICALLY SIGNED> By: Juan Manuel Ospina MD, [facility] 03/19/191838 38 38Juan Manuel Ospina MD, FAC /INF
[2019-03-20] VITALS: BP 121/61
--- NOTE | 2019-03-20 03:12 | NUR ---
RECIEVED REPORT AND ASSUMED CARE AT 1900. 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 SYSTOLIC BP ELEVATED, OTHER THAN THAT VITAL SIGNS STABLE. PT UP ADLIB. PT HAS BACK PAIN AND PRN PAIN MEDS GIVEN ORDERED. ASSESSMENT COMPLETED DISCUSSED PLAN OF CARE AND PT UNDERSTANDS. BED LOCKED AND CALL LIGHT WITHIN REACH. FALL PRECAUTIONS IN PLACE. HOURLY ROUNDING DONE AND ALL NEEDS MET. NURSING WILL CONTINUE TO MONITOR.
[2019-03-20 04:00] VITALS: BP 142/65
[2019-03-20 05:32] LABS: HEMATOCRIT 38.9 % (37.0-47.0); HEMOGLOBIN 12.9 gm/dL (12.0-15.0); MCH 30.5 pg (26.0-34.0); MCHC 33.1 g/dL (28.0-37.0); MPV 7.8 fl. (7.2-11.1); RBC 4.23 mil/uL (4.20-5.00); WBC 4.4 thou/uL (4.0-11.0)
[2019-03-20 05:50] LABS: CALCIUM 9.5 mg/dL (8.5-10.1); POTASSIUM 4.7 mmol/L (3.5-5.1); TROPONIN-I LEVEL 0.08 ng/mL (<0.06)
--- NOTE | 2019-03-20 07:05 | NUR ---
CHANGE OF SHIFT BEDSIDE REPORT GIVEN PATIENT SEEN AT BEDSIDE, IN BED ASLEEP ASSUMED PATIENT CARE
[2019-03-20 08:00] VITALS: BP 157/56
[2019-03-20] MEDS ORDERED: PLAVIX 75 MG TA75 M1 PO (09:41)
[2019-03-20] MEDS ORDERED: NICOTINE TRANSD21 M1 TRANSDERM (09:44)
[2019-03-20 09:49] VITALS: BP 118/47
--- NOTE | 2019-03-20 10:15 | NUR ---
DISCHARGE TO HOME ALL DISCHARGE INSTRUCTIONS GIVEN, ACKNOWLEDGED, AND SIGNED COPIES GIVEN IV AND HEART MONITOR REMOVED PERSONAL BELONGINGS RETURNED PATIENT ESCORTED OUT TO WAITING CAR WITH SPOUSE
--- NOTE | 2019-03-20 13:04 | EKG ---
[place] [address] ELECTROCARDIOGRAM REPORT Name: DM HERNADEZ Room: [address] M.R.#: [id number] Admission: 03/19/19 Attend Phys: Juan Manuel Ospnia MD, F Discharge: 03/20/19 Date of : 62 Report #: [id number] THIS REPORT FOR: //name// [facility] Test Date: 2019-03-20 Test Time: 09:09:04 Pat Name: DM HERNADEZ Department: Room: [address] Gender: F Rf Test Engineer: : 1960 Requested By: Juan Manuel Ospina Order Number: [id number] Brianna MD: Ozzy Loredo Measurements Intervals [place] Rate: 64 P: 53 [place]: 189 QRS: 9 QRSD: 87 T: 62 QT: 441 QTc: 455 Interpretive Statements Sinus rhythm Low voltage, precordial leads Compared to ECG 03/19/2019 13:10:29 No significant changes Electronically Signed On 03-20-2019 13:04:44 CDT by Ozzy Loredo [email or web address] <ELECTRONICALLY SIGNED> By: Ozzy Loredo MD, [facility] 03/20/19 1304 0909 0909 Ozzy Loredo MD, [facility] /EPI
--- NOTE | 2019-03-20 16:08 | D ---
[address] [address] DISCHARGE SUMMARY Name: DM HERNADEZ Room: [address] Gael Burch#: [id number] Admission: 03/19/19 Attend Phys: Juan Manuel Ospina MD, F Discharge: 03/20/19 Date of : 62 Report #: [id number] THIS REPORT FOR: //name// CC: Steve Ospina DATE OF SERVICE: 03/20/2019 DISCHARGE DIAGNOSES: 1. Crescendo angina. 2. Coronary artery disease. 3. Ischemic cardiomyopathy. 4. Tobacco abuse. 5. Hyperlipidemia. 6. Hypertension. 7. Diabetes. CONSULTANTS: None. PROCEDURES: Left heart catheterization with placement of a single drug-eluting stent in the circumflex artery via the femoral approach. HISTORY OF PRESENT ILLNESS: The patient is a 58-year-old white female who was admitted for repeat cardiac catheterization. The patient has an extensive past medical history. She initially presented with myocardial infarction in [address] Ramírez placed a stent in her proximal LAD. She had a repeat cardiac catheterization a year later and had stents placed in her right coronary artery. She has actually done well since that time. Recently, however, she has had recurrent back pain that was similar to her myocardial infarction. It was not necessarily related to exertion. It does make her diaphoretic. She has taken nitroglycerin that seems to help. She saw my nurse practitioner last week, who recommended repeat cardiac catheterization. She does have a chronic cough. She is not very active because of chronic back pain. Denies any exertional dyspnea, palpitations or syncope. She has had no recent fever. PAST MEDICAL HISTORY: Otherwise significant for cholecystectomy, tonsillectomy, diabetes, hypertension, hyperlipidemia. MEDICATIONS: Consist of albuterol as needed, Xanax, aspirin, Celexa, Bentyl, Neurontin, Amaryl, insulin, Hyzaar, metformin, metoprolol, Prilosec, Crestor, Januvia, spironolactone. She recently was started on Imdur. ALLERGIES: She has an [place] [address] DISCHARGE SUMMARY Name: DM HERNADEZ Room: [address] Marcin#: [id number] Admission: 03/19/19 Attend Phys: Juan Manuel Ospina MD, F Discharge: 03/20/19 Date of : 62 Report #: [id number] PHYSICAL EXAMINATION: GENERAL: Middle-aged female. VITAL SIGNS: Blood pressure was 120/70, pulse 70. CHEST: Clear to auscultation. HEART: Regular rate and rhythm. ABDOMEN: Soft. EXTREMITIES: Had no edema. SKIN: Warm and dry. IMAGING: ECG showed a sinus rhythm with poor R-wave progression. LABORATORY DATA: Sodium 138, creatinine 1.0, glucose 130. Liver function studies were normal. Her cholesterol was 89, triglyceride 69, HDL 25, LDL 51. White blood cell count 4.4 and hemoglobin 12.9. HOSPITAL COURSE: The patient was brought to the outpatient department. I reviewed her old films and the coronary arteries appeared to have takeoff that was somewhat unusual. Therefore, I recommended the procedure to be performed from the right femoral artery. Results showed an ejection fraction of only 30%-35% with apical akinesia. LVEDP was 12. The stent in the proximal LAD had no restenosis. There is a small diagonal branch that appeared chronically occluded and filled by collaterals. The distal circumflex was codominant, had an 80% stenosis. The stents in the right coronary had no restenosis. There was a small ramus branch that had an ostial 80% stenosis. The results were discussed with the patient. She felt to have no significant restenosis of her stents; however, she had a new 80% narrowing in the distal circumflex. There was also an 80% narrowing of the ostium of the ramus branch, although this was not readily amenable to stenting because of its ostial location from the left main. She was given heparin and Aggrastat bolus. I then placed a single drug-eluting stent in the distal circumflex. She tolerated this well. An Angio-Seal was placed. She had no further chest pain, arrhythmias or heart failure. She was discharged the following day to continue her home medications that consisted of albuterol as needed, Xanax, aspirin 81 mg a day, Celexa, Bentyl, Neurontin, Amaryl, her insulin, Hyzaar. She was not to resume metformin for 48 hours after the contrast study. She was continued on metoprolol, omeprazole, Crestor, Januvia, spironolactone. She no longer needed to take the isosorbide. She was started on Plavix 75 mg a day for one year following stenting. She was discharged to return to the care of Dr. Medina for management of her diabetes. I plan on seeing her back in the Cardiology Clinic in 6 weeks for followup. She was to contact my office if she had recurrent chest pain, shortness of breath or palpitations. If ejection fraction is not improved, I will consider a defibrillator in future. I strongly recommend she attempt to stop smoking. I did recommend she start an exercise program, maintain tight control of her diabetes. Followup ECG showed no changes. Lab work after the procedure included a repeat creatinine of 1.0. Her fasting blood sugar was 130. Troponin was 0.08. Followup hemoglobin was 12.9 and there was no drop in [address] [address] DISCHARGE SUMMARY Name: DM HERNADEZ Room: [address] Gael Burch#: [id number] Admission: 03/19/19 Attend Phys: Juan Manuel Ospina MD, F Discharge: 03/20/19 Date of : 62 Report #: [id number] platelet count. At time of discharge, she had a blood pressure of 140/70, pulse 60 and she is afebrile and there was no hematoma in the groin. <ELECTRONICALLY SIGNED> By: Juan Manuel Ospina MD, [facility] 03/20/19 1608 0918 [id number] Ospina MD, [facility] /nt
== END 2019-03-20 10:15 | disposition home or self-care (01) ==
LOC: M.CL 08:43 → M.TBA-CV 15:16 → M.2W 15:16
PROVIDERS: ADMIT Internal Medicine Cardiovascular Disease
DX: I25.119 Atherosclerotic heart disease of native coronary artery with unspecified angina pectoris (principal); I25.5 Ischemic cardiomyopathy; E78.5 Hyperlipidemia, unspecified; I10 Essential (primary) hypertension; E11.9 Type 2 diabetes mellitus without complications; Z79.4 Long term (current) use of insulin; Z79.899 Other long term (current) drug therapy; Z72.0 Tobacco use

== ENCOUNTER → 2019-05-13 | Outpatient (CLI) | payer OTHER ==
[~2019-05-13] MED LIST changes: +NICOTINE TRANSD21 M1 TRANSDERM; +PLAVIX 75 MG TA75 M1 PO
--- NOTE | 2019-05-13 15:46 | 2DMMODE ---
[place] [address] 2 D/M-MODE ECHOCARDIOGRAM Name: DM HERNADEZ Room: [facility]#: [id number] Admission: 05/13/19 Attend Phys: Juan Manuel Ospina MD Discharge: Date of : 62 Date of Service: 05/13/19 1546 Report #: [id number] THIS REPORT FOR: //name// APPROVED REPORT Study performed: 05/13/2019 13:02:06 EXAM: Limited 2D Echocardiogram Patient Location: Out-Patient BSA: 2.06 HR: 80 bpm BP: 136/75 mmHg Other Information Study Quality: Good Indications Congestive Heart Failure Cardiomyopathy 2D Dimensions IVSd: 10.39 (7-11mm) LVDd: 48.69 mm PWd: 9.77 (7-11mm) LVDs: 29.94 (25-40mm) Aortic Root: 29.27 mm Left Ventricle The left ventricle is normal size. There is hypokinesis of the distal anterior anteroseptal wall and apex. There is normal left ventricular wall thickness. Left ventricular systolic function is mildly decreased. LVEF is 45-50%. Aortic Valve The aortic valve is normal in structure. Mitral Valve The mitral valve is normal in structure. No evidence of mitral valve stenosis. Tricuspid Valve The tricuspid valve is normal in structure. Pulmonic Valve The pulmonary valve is [place] [address] 2 D/M-MODE ECHOCARDIOGRAM Name: DM HERNADEZ Room: [facility]#: [id number] Admission: 05/13/19 Attend Phys: Juan Manuel Ospina MD Discharge: Date of : 62 Date of Service: 05/13/19 1546 Report #: [id number] Pericardium There is no pericardial effusion. <Conclusion> The left ventricle is normal size. There is normal left ventricular wall thickness. Left ventricular systolic function is mildly decreased. LVEF is 45-50%. There is hypokinesis of the distal anterior anteroseptal wall and apex. <ELECTRONICALLY SIGNED> By: Ozzy Loredo MD, FACC 05/13/19 1546 1546 154 Ozzy Loredo MD, FACC /INF
== END ==
LOC: M.CRD 12:56
DX: I25.5 Ischemic cardiomyopathy (principal); I50.9 Heart failure, unspecified

== ENCOUNTER 2020-07-07 07:49 | Observation (INO) | payer OTHER ==
[~2020-07-07] VITALS: Ht 165.1 cm; Wt 95.3 kg
[2020-07-07] VITALS (12 sets, daily range): BP systolic 124–167; BP diastolic 52–75
[2020-07-07 08:52] LABS: HEMATOCRIT 37.8 % (37.0-47.0); HEMOGLOBIN 12.8 gm/dL (12.0-15.0); MCH 28.6 pg (26.0-34.0); MCHC 33.8 g/dL (28.0-37.0); MCV 84.7 fL (80.0-100.0); MPV 8.3 fl. (7.2-11.1); RBC 4.46 mil/uL (4.20-5.00); WBC 7.7 thou/uL (4.0-11.0)
[2020-07-07 08:58] LABS: ANION GAP 7 mmol/L (7-16); BUN 18 mg/dL (7-18); CALCIUM 8.6 mg/dL (8.5-10.1); CHLORIDE 102 mmol/L (98-107); CO2 27 mmol/L (21-32); CREATININE 1.3 mg/dL (0.6-1.3); GLUCOSE 183 mg/dL (70-99); POTASSIUM 4.4 mmol/L (3.5-5.1); SODIUM 136 mmol/L (136-145)
[2020-07-07 09:01] LABS: APTT 24.5 Seconds (25.0-31.3)
[2020-07-07 09:02] LABS: ALBUMIN 3.6 g/dL (3.4-5.0); ALKALINE PHOSPHATASE 114 U/L (46-116); CHOLESTEROL 97 mg/dL (<200); HDL CHOLESTEROL 20 mg/dL (>40); LDL CHOLESTEROL 38 mg/dL (<100); SGOT 13 U/L (15-37); SGPT 23 U/L (30-65); TC:HDL 4.9 Ratio (Not establshd); TOTAL BILIRUBIN 0.2 mg/dL (<0.1-1.0); TOTAL PROTEIN 7.9 g/dL (6.4-8.2); TRIGLYCERIDE 196 mg/dL (<150); VLDL 39 mg/dL (<40)
[2020-07-07 09:03] LABS: SERUM ASSESSMENT Clear
[2020-07-07] MEDS ORDERED: PERCOCET 7.5-31 EACH PO (09:32)
--- NOTE | 2020-07-07 13:29 | EKG ---
[place] [address] ELECTROCARDIOGRAM REPORT Name: DM HERNADEZ Room: [address] M.R.#: [id number] Admission: 07/07/20 Attend Phys: See Cohen Discharge: Date of : 62 Date of Service: 07/07/20 0846 Report #: [id number] THIS REPORT FOR: //name// [facility] Test Date: 2020-07-07 Test Time: 08:46:44 Pat Name: DM HERNADEZ Department: Room: [facility] Gender: F Evaluation Analyst: [place] : 1960 Requested By: Ryan Barajas Order Number: [id number] Brianna MD: Ryan Barajas Measurements Intervals [place] Rate: 65 P: 64 AR: 178 QRS: -2 QRSD: 92 T: 97 QT: 426 QTc: 443 Interpretive Statements Sinus rhythm Nonspecific T abnormalities, lateral leads Mild QT prolongation for right Compared to ECG 03/20/2019 09:09:04 T-wave abnormality now present and QT has prolonged Electronically Signed On 07-07-2020 13:28:51 CDT by Ryan Barajas [email or web address] <ELECTRONICALLY SIGNED> By: Ryan Barajas MD, [facility] 07/07/20 1328 0846 0846 Ryan Barajas MD, [facility] /EPI
--- NOTE | 2020-07-07 13:30 | EKG ---
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: [place] : 1960 Requested By: Ryan Barajas Order Number: [id number] Reading MD: Ryan Barajas Measurements Intervals [place] Rate: 64 P: 71 [place]: 187 QRS: 2 QRSD: 107 T: 92 QT: 438 QTc: 452 Interpretive Statements Sinus rhythm Low voltage, precordial leads Nonspecific T abnormalities, lateral leads Compared to ECG 07/07/2020 08:46:44 Low QRS voltage now present T-wave abnormality still present Electronically Signed On 07-07-2020 13:29:52 CDT by Ryan Barajas [email or web address] <ELECTRONICALLY SIGNED> By: Ryan Barajas MD, [facility] 07/07/20 1329 1252 1252 Ryan Barajas MD, FAC /EPI
--- NOTE | 2020-07-07 13:46 | CARD ---
[address] [address] CARDIAC CATH REPORT Name: DM HERNADEZ Room: [address] M.R.#: [id number] Admission: 07/07/20 Attend Phys: Ryan Barajas MD, Discharge: Date of : 62 Report #: [id number] THIS REPORT FOR: //name// cc: Steve Medina MD, Anthony MD ~ APPROVED REPORT Study performed: 07/07/2020 09:07:23 Patient Details Patient Status: Out-Patient Room #: The patient is a 60 year-old female Event Personnel Ryan Barajas Biomedical Equipment Tech, Karen Kay RN Marine Engine Driver, Brandy Kennedy RN Monitor, Sharon Oconnell RN RN, Chivo Wynn RTR Scrub, Imani Chan RTR Monitor Procedures Performed Art Access - R femoral artery, Left Heart Cath w/or w/o Coronaries LHC, MAXIMUS Place w/wo Plasty Single CIRC , Hemostasis w/ Angioseal Indication Positive stress test Risk Factors Hypercholesterolemia, Hypertension, Diabetes Previous Procedures/Diagnoses Previous PCI, Previous [facility] Admission[facility] Medications/Medications given during procedure Angiomax IV 14 ml, Angiomax Drip IV 33.05 ml per hr, Plavix PO 300 mg, Aspirin PO 162 mg Procedure Narrative The patient was brought electively to the Cardiac Catheterization Laboratory and was prepped and draped in a sterile manner. The right femoral was infiltrated with 2% Lidocaine subcutaneous anesthesia. A 6F Swisher sheath was inserted into the right femoral artery. Coronary angiography was performed using coronary diagnostic catheters. The right coronary system was accessed and visualized with a 5F 3DRC catheter. The left coronary system was accessed and visualized with a 6F JL4 catheter. The left ventricle [place] [address] CARDIAC CATH REPORT Name: DM HERNADEZ Room: [address] M.R.#: [id number] Admission: 07/07/20 Attend Phys: Ryan Barajas MD, Discharge: Date of : 62 Report #: [id number] and visualized with a 5F Straight Pigtail catheter. Left ventricular/Aortic Valve gradient assessed via catheter pullback. Left ventriculogram was performed in ONEAL projection. Pre-demployment femoral angiogram was performed . Closure device was deployed with a 6 Fr Angioseal STS. The patient tolerated the procedure well and there were no complications associated with the procedure. There was no hematoma. Intraoperative Conscious Sedation Sedation start time: 10:06 Case end Time: 11:41 Fentanyl 75 mcg Versed 4 mg Fluoro Time: 20 minutes Dose: DAP 238551 cGycm2 3615 mGy Contrast Type and Amount: Visipaque 340 ml Diagnostic Cath Left Main 10% distal narrowing LAD Total occlusion of the prominent first diagonal branch with left to left collaterals filling the distal diagonal; 0% narrowing in the parent LAD Circumflex 90% ostial narrowing with 40% mid vessel narrowing and 80% distal stenosis Right Coronary Dominant vessel with 30% proximal and mid vessel narrowing Ramus Modest size vessel with 75% proximal narrowing Left Ventriculography The left ventricle is normal in size with contractility. The left ventricular ejection fraction is estimated to be 45%. Left ventricular wall motion abnormalities are present. There is no mitral insufficiency. There is mid anterior akinesis with inferobasilar hypokinesis Hemodynamics The aortic pressure is 150/54 mmHg with a mean of 92 mmHg. The left ventricular pressure is 156/6 mmHg with a mean of mmHg. The left ventricular end diastolic pressure is 13 mmHg. There was no gradient across the aortic valve upon pullback. PCI Technique Lesion Anticoagulation was achieved with Angiomax. Patient was preloaded with Angiomax IV 14 ml. Percutaneous coronary intervention was performed on the distal circumflex artery segment. The lesion stenosis prior to intervention was 80% with CM 3 flow. A 6FR [place] [address] CARDIAC CATH REPORT Name: DM HERNADEZ Room: [address] M.R.#: [id number] Admission: 07/07/20 Attend Phys: Ryan Barajas MD, Discharge: Date of : 62 Report #: [id number] LAUNCHER EBU 3.5 Guide Catheter was used to engage the lm ostium. A BMW 190cm Interventional Guidewire was used to cross the lesion. BALLOON DILATION A Balloon catheter Mini Trek RX 1.5 X 12 was inserted and inflated up to 16.00atm for 10seconds. Additional Inflation: 20.00atm for 8seconds. STENT DEPLOYMENT A drug-eluting stent Anthony RX Stent 2.0X12mm was inserted and inflated up to 8.00atm for 14seconds. Additional Inflation: 9.00atm for 12seconds. A balloon catheter NC Trek RX 1.5 x 12 was inserted and inflated up to 20 piotr for 13 seconds. Additional inflation: 24 piotr for 9 seconds. A balloon catheter Mini Trek RX 2.0 x 8 was inserted and inflated up to 12 piotr for 9 seconds. Additional inflations: 12 piotr for 8 seconds; 14 piotr for 14 seconds. Final angiography reveals 10 % stenosis with CM 3 flow. COMMENTS A ProwaterFlex 180 cm interventional guidewire was advance down LAD artery. PCI Technique Lesion 2 Percutaneous Coronary Intervention was performed on the proximal circumflex artery segment. Patient was preloaded with Angiomax IV 14 ml. The lesion stenosis prior to intervention was 90% with CM 3 flow. A 6FR LAUNCHER EBU 3.5 Guide Catheter was used to engage the lm ostium. A BMW 190cm Interventional Guidewire was used to cross the lesion. Stent Deployment A drug-eluting stent Judsonia RX Stent 2.25X8mm was inserted and inflated up to 11.00atm for 9seconds. Additional Inflation: 12.00atm for 6seconds. Final angiography reveals 0 % stenosis with CM 3 flow. Conclusion 1. Significant multivessel coronary artery disease characterized by the following: A 10% distal left main coronary narrowing [address] [address] CARDIAC CATH REPORT Name: DM HERNADEZ Room: [address] Gael Burch#: [id number] Admission: 07/07/20 Attend Phys: Ryan Barajas MD, Discharge: Date of : 62 Report #: [id number] B 0% LAD narrowing with total occlusion of the prominent first diagonal branch with left to left collaterals filling the distal diagonal C 90% ostial- proximal circumflex stenosis with 40% tubular mid vessel narrowing and 80% distal stenosis D 30% narrowing of the proximal and mid portions of the dominant right coronary artery E 75% narrowing of the proximal portion of the modest sized ramus intermedius branch 2. Mild impairment in global LV function, estimated ejection fraction being 45% with mid anterior akinesis and inferobasilar hypokinesis 3. Mild systemic systolic hypertension with normal left ventricular end-diastolic pressure at rest 4. Successful PCI with deployment of drug-eluting stents at the sites of 90% ostial- proximal circumflex narrowing and 80% distal circumflex narrowing with 0 and 10% residual narrowings and CM-3 flow to the distal vessel Recommendations Daily ASA with Plavix for at least one year Aggressive Medical Therapy Medications Administered Aspirin (any) Clopidogrel Diagnostic Cath Approved by: Ryan Barajas MD Date/Time: 07/07/2020 13:42:04 <ELECTRONICALLY SIGNED> By: Ryan Barajas MD, [facility] 07/07/20 1345 1345 [id number] Barajas MD, [facility] /INF
[2020-07-07] MEDS ORDERED: TRESIBA FL200 UNIT/1 SUBQ (21:00)
[2020-07-08] VITALS: BP 151/58
[2020-07-08 04:00] VITALS: BP 145/59
[2020-07-08 05:05] LABS: HEMATOCRIT 34.5 % (37.0-47.0); HEMOGLOBIN 11.8 gm/dL (12.0-15.0); MCH 29.2 pg (26.0-34.0); MCHC 34.3 g/dL (28.0-37.0); MCV 85.2 fL (80.0-100.0); MPV 8.2 fl. (7.2-11.1); RBC 4.04 mil/uL (4.20-5.00); RDW-CV 17.9 % (10.5-14.5); WBC 5.4 thou/uL (4.0-11.0)
--- NOTE | 2020-07-08 05:26 | NUR ---
RECEIVED REPORT AND ASSUMED CARE OF PT AT 1900. FULL ASSESSMENT COMPLETED CHARTED. BED LOCKED AND IN LOW POSITION, CALL LIGHT AND PERSONAL ITEMS IN REACH. NO ACUTE CHANGES THIS SHIFT.
[2020-07-08 05:57] LABS: ALBUMIN 3.1 g/dL (3.4-5.0); ALKALINE PHOSPHATASE 105 U/L (46-116); ANION GAP 6 mmol/L (7-16); BUN 13 mg/dL (7-18); CHLORIDE 104 mmol/L (98-107); CO2 27 mmol/L (21-32); GLUCOSE 224 mg/dL (70-99); SGOT 12 U/L (15-37); SGPT 19 U/L (30-65); SODIUM 137 mmol/L (136-145); TOTAL BILIRUBIN 0.2 mg/dL (<0.1-1.0); TOTAL PROTEIN 6.9 g/dL (6.4-8.2); TROPONIN-I LEVEL <0.06 ng/mL (<0.06)
[2020-07-08 08:00] VITALS: BP 172/52
[2020-07-08 10:42] VITALS: BP 138/64
[2020-07-08 10:59] VITALS: BP 138/64
--- NOTE | 2020-07-08 11:58 | EKG ---
[place] [address] ELECTROCARDIOGRAM REPORT Name: DM HERNADEZ Room: [address] M.R.#: [id number] Admission: 07/07/20 Attend Phys: See Cohen Discharge: Date of : 62 Date of Service: 07/08/20 0832 Report #: [id number] THIS REPORT FOR: //name// [facility] Test Date: 2020-07-08 Test Time: 08:32:18 Pat Name: DM HERNADEZ Department: Room: [facility] Gender: F Feather Boner: : 1960 Requested By: Ryan Barajas Order Number: [id number] Reading MD: Ryan Barajas Measurements Intervals [place] Rate: 68 P: 74 NE: 183 QRS: -6 QRSD: 93 T: 85 QT: 428 QTc: 456 Interpretive Statements Sinus rhythm Low voltage, precordial leads Baseline wander in lead(s) II,III,aVF Compared to ECG 07/07/2020 12:52:39 T-wave abnormality no longer present Electronically Signed On 07-08-2020 11:58:10 CDT by Ryan Barajas [email or web address] <ELECTRONICALLY SIGNED> By: Ryan Barajas MD, [facility] 07/08/20 1158 0832 0832 Ryan Barjaas MD, FAC /EPI
--- NOTE | 2020-07-08 12:07 | NUR ---
ASSUMED CARE OF PATIENT THIS AM AT 0730. PATIENT IS ALERT AND ORIENTED X 4. SHE DENIES CHEST PAIN AND SOA. DR LAWTON IN TO ROUND AND DISCHARGE ORDERS WERE WRITTEN. TELE SHOWS SR. TELE MONITOR AND SALINE LOCK DISCONTINUED. PATIENT GIVEN DISCHARGE AND FOLLOWUP INSTRUCTIONS. PATIENT DISCHARGED TO HOME WITH BELONGINGS.
--- NOTE | 2020-07-08 12:13 | D ---
[address] [address] DISCHARGE SUMMARY Name: DM HERNADEZ Room: [address] Gael M.R.#: [id number] Admission: 07/07/20 Attend Phys: Ryan Barajas MD, Discharge: 07/08/20 Date of : 62 Report #: [id number] THIS REPORT FOR: //name// cc: Steve Medina MD, Anthony MD ~ THIS REPORT FOR: //name// CC: Steve Barajas DATE OF SERVICE: 07/08/2020 FINAL DISCHARGE DIAGNOSES: 1. Abnormal nuclear stress test. 2. Coronary artery disease. 3. Status post percutaneous coronary intervention. 4. Diabetes. 5. Ischemic cardiomyopathy. 6. Obstructive sleep apnea. 7. Hypertension. 8. Hyperlipidemia. 9. Tobacco abuse. 10. Peripheral vascular disease. PROCEDURES: 07/07/2020 -- left heart catheterization, left ventriculography, selective coronary arteriography, and percutaneous coronary intervention to the circumflex. The patient is a 60-year-old female with aggressive coronary artery disease. She has a number of risk factors for coronary artery disease including diabetes, hypertension, hyperlipidemia and tobacco habituation. Recently, she has noted increased dyspnea on exertion and nuclear stress test revealed an area of inducible lateral ischemia with a fixed anteroapical defect. In the context of significant inducible ischemic burden, I performed catheterization on 07/07/2020. That study revealed total occlusion of the first diagonal with recanalization to fill out distal vessel with no significant stenosis of the apparent LAD itself. The circumflex demonstrated 90% ostial narrowing with 40% midvessel narrowing and 80% distal stenosis. I deployed one drug-eluting stent in the ostial proximal circumflex, one in the distal circumflex, with 0 and 10% residual narrowings and CM 3 flow to the distal vessel. Troponin did not rise postprocedurally and the patient was clinically stable post intervention. There was good hemostasis at [place] [address] DISCHARGE SUMMARY Name: DM HERNADEZ Room: [address] M.R.#: [id number] Admission: 07/07/20 Attend Phys: Ryan Barajas MD, Discharge: 07/08/20 Date of : 62 Report #: [id number] catheterization. DISCHARGE MEDICATIONS: The patient was discharged to home on 07/08/2020 on the following medications: Lipitor 20 mg daily, hydrochlorothiazide 12.5 mg daily, losartan 100 mg daily, amlodipine 10 mg daily, Plavix 75 mg daily with a 300 mg periprocedural dose, metoprolol 25 mg b.i.d., aspirin 81 mg daily, and sublingual nitroglycerin. I will plan to see the patient in the office in 6 weeks for continuing care. Therefore, the patient is discharged to home in stable condition with followup as iterated above. <ELECTRONICALLY SIGNED> By: Ryan Barajas MD, [facility] 07/08/20 1213 0923 [id number] Barajas MD, [facility] /nt
== END 2020-07-08 12:00 | disposition home or self-care (01) ==
LOC: M.CL 07:49 → M.2W 11:19 → M.TBA-CV 11:19 → M.2W 12:20
PROVIDERS: ADMIT Internal Medicine; ATTEND Internal Medicine
DX: I25.10 Atherosclerotic heart disease of native coronary artery without angina pectoris (principal); E11.9 Type 2 diabetes mellitus without complications; I25.5 Ischemic cardiomyopathy; E78.5 Hyperlipidemia, unspecified; G47.33 Obstructive sleep apnea (adult) (pediatric); I73.9 Peripheral vascular disease, unspecified; I21.09 ST elevation (STEMI) myocardial infarction involving other coronary artery of anterior wall; E78.2 Mixed hyperlipidemia; I11.0 Hypertensive heart disease with heart failure; I50.9 Heart failure, unspecified; Z79.4 Long term (current) use of insulin; Z79.899 Other long term (current) drug therapy; Z87.891 Personal history of nicotine dependence; Z98.61 Coronary angioplasty status

== ENCOUNTER → 2020-11-18 | Outpatient (CLI) | payer OTHER ==
[~2020-11-18] MED LIST changes: +PERCOCET 7.5-31 EACH PO; +TRESIBA FL200 UNIT/1 SUBQ
[2020-11-18 14:16] LABS: ALBUMIN 3.2 g/dL (3.4-5.0); CALCIUM 9.3 mg/dL (8.5-10.1); CREATININE 1.4 mg/dL (0.6-1.3); POTASSIUM 5.4 mmol/L (3.5-5.1); TOTAL BILIRUBIN 0.3 mg/dL (<0.1-1.0); TOTAL PROTEIN 7.8 g/dL (6.4-8.2)
== END ==
LOC: M.RAD 13:41
PROVIDERS: ATTEND Registered Nurse
DX: J90 Pleural effusion, not elsewhere classified (principal); I25.5 Ischemic cardiomyopathy; E11.9 Type 2 diabetes mellitus without complications; J98.11 Atelectasis; I51.7 Cardiomegaly; Z79.4 Long term (current) use of insulin

== ENCOUNTER → 2020-11-23 | Outpatient (CLI) | payer OTHER ==
--- NOTE | 2020-11-23 14:18 | 2DMMODE ---
[place] [address] 2 D/M-MODE ECHOCARDIOGRAM Name: DM HERNADEZ Room: [facility]#: [id number] Admission: 11/23/20 Attend Phys: Juan Manuel Ospina MD Discharge: Date of : 62 Date of Service: 11/23/20 1417 Report #: [id number] THIS REPORT FOR: cc: Steve Medina MD, Anthony MD Liston, Michael J. MD [facility] ~ APPROVED REPORT Study performed: 11/23/2020 10:58:17 EXAM: Comprehensive 2D, Doppler, and color-flow Echocardiogram Patient Location: Out-Patient BSA: 2.01 HR: 81 bpm BP: 132/70 mmHg Other Information Study Quality: Good Indications CAD Cardiomyopathy 2D Dimensions IVSd: 12.61 (7-11mm) LVOT Diam: 20.64 (18-24mm) LVDd: 55.81 mm PWd: 11.51 (7-11mm) Ascending Ao: 25.38 (22-36mm) LVDs: 44.62 (25-40mm) Aortic Root: 33.14 mm Volumes Left Atrial Volume (Systole) LA ESV Index: 21.00 mL/m2 Aortic Valve AoV Peak Isac.: 1.49 m/s AO Peak Gr.: 8.89 mmHg LVOT Max P.14 mmHg AO Mean Gr.: 4.39 mmHg LVOT Mean P.55 mmHg LVOT Max V: 0.89 m/s AO V2 VTI: 26.41 cm LVOT Mean V: 0.58 m/s KATHRIN (VTI): 2.40 cm2 LVOT V1 VTI: 18.91 [place] [address] 2 D/M-MODE ECHOCARDIOGRAM Name: DM HERNADEZ Room: [facility]#: [id number] Admission: 11/23/20 Attend Phys: Juan Manuel Ospina MD Discharge: Date of : 62 Date of Service: 11/23/20 1417 Report #: [id number] E/A Ratio: 1.97 MV Decel. Time: 178.19 ms MV E Max Isac.: 1.25 m/s MV PHT: 51.67 ms MVA (PHT): 4.26 cm2 TDI E/Lateral E': 13.89 E/Medial E': 10.42 Medial E' Isac.: 0.12 m/s Lateral E' Isac.: 0.09 m/s Pulmonary Valve PV Peak Isac.: 0.87 m/s PV Peak Gr.: 3.01 mmHg Tricuspid Valve RAP Estimate: 5.00 mmHg TR Peak Gr.: 62.73 mmHg RVSP: 67.73 mmHg PA Pressure: 67.73 mmHg Left Ventricle The left ventricle is normal size. There is mild global hypokinesis with akinesis of the apex and apical septum and anterior wall. There is normal left ventricular wall thickness. Left ventricular systolic function is mild to moderately decreased. LVEF is 40-45%. Grade II - pseudonormal filling dynamics. Right Ventricle The right ventricle is normal size. The right ventricular systolic function is normal. Atria Left atrium is mildly dilated. The right atrium size is normal. Aortic Valve The aortic valve is normal in structure. No aortic regurgitation is present. There is no aortic valvular stenosis. Mitral Valve Mild mitral annular calcification. Mild to moderate mitral regurgitation. No evidence of mitral valve stenosis. Tricuspid Valve The tricuspid valve is normal in structure. Moderate tricuspid regurgitation. The RVSP is 65 [place] [address] 2 D/M-MODE ECHOCARDIOGRAM Name: DM HERNADEZ Room: [facility]#: [id number] Admission: 11/23/20 Attend Phys: Juan Manuel Ospina MD Discharge: Date of : 62 Date of Service: 11/23/20 1417 Report #: [id number] Pulmonic Valve The pulmonary valve is normal in structure. There is no pulmonic valvular regurgitation. Great Vessels The aortic root is normal in size. IVC is normal in size and collapses >50% with inspiration. Pericardium There is no pericardial effusion. <Conclusion> There is mild global hypokinesis with akinesis of the apex and apical septum and anterior wall. Left atrium is mildly dilated. Mild mitral annular calcification. Mild to moderate mitral regurgitation. Moderate tricuspid regurgitation. The RVSP is 65 mmHg. IVC is normal in size and collapses >50% with inspiration. <ELECTRONICALLY SIGNED> By: Ozzy Loredo MD, [facility] 11/23/20 [phone] Ozzy Loredo MD, FACC /INF
== END ==
LOC: M.CRD 11:00
PROVIDERS: ATTEND Internal Medicine Cardiovascular Disease
DX: I08.1 Rheumatic disorders of both mitral and tricuspid valves (principal); I25.10 Atherosclerotic heart disease of native coronary artery without angina pectoris; I25.5 Ischemic cardiomyopathy; I10 Essential (primary) hypertension

== ENCOUNTER 2020-11-30 12:21 | Inpatient (IN) | payer OTHER ==
[~2020-11-30] VITALS: Ht 165.1 cm; Wt 97.1 kg
[~2020-11-30 12:21] MED LIST changes: -CRESTOR10 MG PO; +NEURONTIN600 MG PO; -TOPROL XL25 MG PO; +XANAX 0.25 MG0.25 MG PO; -XANAX 0.5 MG0.5 MG PO
[2020-11-30 12:40] VITALS: BP 118/68
[2020-11-30] MEDS ORDERED: VITAMIN B-121000 MC2 SUBLING (12:48)
[2020-11-30] MEDS ORDERED: FUROSEMIDE 40 M40 MG PO (12:48)
[2020-11-30] MEDS ORDERED: JANUVIA100 MG PO (12:49)
[2020-11-30] MEDS ORDERED: GLIMEPIRIDE4 MG PO (12:49)
[2020-11-30] MEDS ORDERED: COZAAR100 MG PO (12:50)
[2020-11-30] MEDS ORDERED: TOUJEO SOL300 UNIT/1 SUBQ (12:52)
[2020-11-30] MEDS ORDERED: TRELEGY ELLIPT1 EACH INH (12:53)
[2020-11-30 13:15] LABS: ABSOLUTE LYMPHOCYTES 1.1 thou/uL (0.8-5.3); ABSOLUTE MONOCYTES 0.3 thou/uL (0.0-1.2); ABSOLUTE NEUTROPHILS 5.1 thou/uL (1.6-8.1); BASOPHILS 0.7 %; EOSINOPHILS 0.4 %; HEMATOCRIT 25.1 % (37.0-47.0); HEMOGLOBIN 7.9 gm/dL (12.0-15.0); LYMPHOCYTES 16.3 %; MCH 24.3 pg (26.0-34.0); MCHC 31.3 g/dL (28.0-37.0); MCV 77.5 fL (80.0-100.0); MONOCYTES 4.5 %; MPV 7.8 fl. (7.2-11.1); NUCLEATED RBCS 0 /100WBC; PLATELET COUNT* 284 thou/uL (150-400); POLYS 78.1 %; RBC 3.24 mil/uL (4.20-5.00); RDW-CV 21.7 % (10.5-14.5); WBC 6.5 thou/uL (4.0-11.0)
[2020-11-30 13:16] LABS: BE -2.5 mmol/L (-2 to +3); PCO2 36.3 mmHg (35.0-45.0); PO2 66.6 mmHg (75.0-100.0); pH 7.399 (7.340-7.450)
[2020-11-30 13:25] LABS: CALCIUM 8.8 mg/dL (8.5-10.1); CREATININE 1.5 mg/dL (0.6-1.3); POTASSIUM 5.2 mmol/L (3.5-5.1)
[2020-11-30 13:29] LABS: APTT 22.9 Seconds (25.0-31.3); PROTIME 11.1 Seconds (9.20-11.50)
[2020-11-30 13:35] LABS: TOTAL BILIRUBIN 0.2 mg/dL (<0.1-1.0); TOTAL PROTEIN 7.4 g/dL (6.4-8.2)
[2020-11-30 13:44] LABS: URINE BILIRUBIN NEGATIVE (Negative); URINE BLOOD NEGATIVE (Negative); URINE CLARITY CLEAR; URINE COLOR YELLOW; URINE GLUCOSE-RANDOM NEGATIVE (Negative); URINE KETONES NEGATIVE (Negative); URINE LEUKOCYTES-REFLEX NEGATIVE (Negative); URINE NITRITE-REFLEX NEGATIVE (Negative); URINE PROTEIN NEGATIVE (Negative); URINE SPECIFIC GRAVITY 1.015 (1.005-1.030); URINE UROBILINOGEN 0.2 E.U./dl (0.2-1.0)
[2020-11-30 17:45] VITALS: BP 110/48
[2020-11-30 17:53] VITALS: BP 111/35
[2020-11-30 20:00] VITALS: BP 108/60
[2020-12-01] VITALS (7 sets, daily range): BP systolic 99–128; BP diastolic 47–57
[2020-12-01 04:03] LABS: ABSOLUTE EOSINOPHILS 0.1 thou/uL (0.0-0.7); ABSOLUTE LYMPHOCYTES 1.4 thou/uL (0.8-5.3); ABSOLUTE MONOCYTES 0.4 thou/uL (0.0-1.2); ABSOLUTE NEUTROPHILS 4.7 thou/uL (1.6-8.1); BASOPHILS 0.7 %; EOSINOPHILS 1.3 %; HEMATOCRIT 23.1 % (37.0-47.0); HEMOGLOBIN 7.3 gm/dL (12.0-15.0); LYMPHOCYTES 21.2 %; MCH 24.4 pg (26.0-34.0); MCHC 31.7 g/dL (28.0-37.0); MONOCYTES 5.8 %; MPV 7.7 fl. (7.2-11.1); NUCLEATED RBCS 0 /100WBC; PLATELET COUNT* 258 thou/uL (150-400); RDW-CV 20.8 % (10.5-14.5); WBC 6.6 thou/uL (4.0-11.0)
[2020-12-01 04:16] LABS: CALCIUM 9.1 mg/dL (8.5-10.1); CREATININE 1.6 mg/dL (0.6-1.3); POTASSIUM 4.6 mmol/L (3.5-5.1); TROPONIN-I LEVEL 0.34 ng/mL (<0.06)
[2020-12-01 08:07] LABS: ANISOCYTOSIS 1+; HYPOCHROMASIA 2+; MACROCYTES Occasional; MICROCYTES 1+; PLATELET ESTIMATE ADEQUATE
[2020-12-01] MEDS ORDERED: BUSPIRONE HCL10 MG PO (08:30)
[2020-12-01] MEDS ORDERED: JANUVIA100 MG PO (11:47)
[2020-12-01] MEDS ORDERED: TOPROL XL100 MG PO (11:48)
[2020-12-01] MEDS ORDERED: METOPROLOL SUC100 MG PO (11:50)
[2020-12-01] MEDS ORDERED: SPIRONOLACTONE25 MG PO (11:51)
--- NOTE | 2020-12-01 14:11 | EKG ---
[place] [address] ELECTROCARDIOGRAM REPORT Name: DM HERNADEZ Room: [address] ADM IN M.R.#: [id number] Admission: 11/30/20 Attend Phys: Quang Muñoz, Discharge: Date of : 62 Date of Service: 11/30/20 1312 Report #: [id number] THIS REPORT FOR: //name// [facility] ED Test Date: 2020-11-30 Test Time: 13:12:09 Pat Name: DM HERNADEZ Department: Room: [facility] Gender: F Facilities Custodian: BRADLEY : 1960 Requested By: Ashley Aragon Order Number: [id number] MD: Ryan Barajas Measurements Intervals [place] Rate: 67 P: 74 [place]: 174 QRS: 0 QRSD: 106 T: 159 QT: 424 QTc: 448 Interpretive Statements Sinus rhythm Minor interventricular conduction delay Borderline repolarization abnormality Compared to ECG 07/08/2020 08:32:18 No significant changes Electronically Signed On 12-01-2020 14:11:10 CLINICAL OPERATIONS LEADER by Ryan Barajas [email or web address] <ELECTRONICALLY SIGNED> By: Ryan Barajas MD, [facility] 12/01/20 1411 1312 1312 Ryan Barajas MD, [facility] /EPI
[2020-12-01 18:10] LABS: BF RBC 4988 /mm3; TOTAL CELL COUNT 635 /mm3
[2020-12-01 18:11] LABS: SOURCE PLEURAL FLUID; TOTAL VOLUME 1250 ml
[2020-12-01 18:13] LABS: CLARITY TURBID
[2020-12-01 19:06] LABS: BF POLYS 37 %
[2020-12-01 19:07] LABS: BF LYMPHOCYTES 36 %; BF MONOCYTES 27 %
[2020-12-02] VITALS (7 sets, daily range): BP systolic 95–136; BP diastolic 38–65
[2020-12-02 04:11] LABS: ALBUMIN 2.8 g/dL (3.4-5.0); CALCIUM 8.6 mg/dL (8.5-10.1); CREATININE 1.5 mg/dL (0.6-1.3); POTASSIUM 4.4 mmol/L (3.5-5.1); TOTAL BILIRUBIN 0.3 mg/dL (<0.1-1.0); TOTAL PROTEIN 6.7 g/dL (6.4-8.2)
[2020-12-02 05:49] LABS: MCH 23.9 pg (26.0-34.0); MCHC 30.9 g/dL (28.0-37.0); MCV 77.4 fL (80.0-100.0)
[2020-12-02 05:51] LABS: MPV 7.9 fl. (7.2-11.1); NUCLEATED RBCS 0 /100WBC; PLATELET COUNT* 292 thou/uL (150-400); RBC 2.43 mil/uL (4.20-5.00); RDW-CV 21.2 % (10.5-14.5); WBC 12.9 thou/uL (4.0-11.0)
[2020-12-02 05:57] LABS: HEMATOCRIT 18.8 % (37.0-47.0); HEMOGLOBIN 5.8 gm/dL (12.0-15.0)
[2020-12-02 07:11] LABS: ABSOLUTE BASOPHILS 0.1 thou/uL (0.0-0.2); ABSOLUTE LYMPHOCYTES 1.3 thou/uL (0.8-5.3); ABSOLUTE NEUTROPHILS 11.5 thou/uL (1.6-8.1); ATYPICAL LYMPHS 1 %; METAMYELOCYTES 1 %; PLATELET ESTIMATE ADEQUATE
[2020-12-02 07:12] LABS: MICROCYTES 3+
[2020-12-02 07:13] LABS: ANISOCYTOSIS 2+; HYPOCHROMASIA 1+
--- NOTE | 2020-12-02 11:30 | EKG ---
[place] [address] ELECTROCARDIOGRAM REPORT Name: DM HERNADEZ Room: [address] ADM IN M.R.#: [id number] Admission: 11/30/20 Attend Phys: Quang Muñoz, Discharge: Date of : 62 Date of Service: 12/01/20 1435 Report #: [id number] THIS REPORT FOR: //name// [facility] Test Date: 2020-12-01 Test Time: 14:35:23 Pat Name: DM HERNADEZ Department: Room: [address] Gender: F Digital Asset Manager: CAITLYN : 1960 Requested By: Quang Muñoz Order Number: [id number] Reading MD: Ryan Barajas Measurements Intervals [place] Rate: 81 P: 77 SD: 172 QRS: 0 QRSD: 126 T: 132 QT: 394 QTc: 458 Interpretive Statements Sinus rhythm Probable left atrial enlargement Nonspecific intraventricular conduction delay Anterolateral and high lateral ST segment depression; ischemia must be considered Compared to ECG 11/30/2020 13:12:09 Intraventricular conduction delay persists Electronically Signed On 12-02-2020 11:30:02 CONE TRUCKER by Ryan Barajas [email or web address] <ELECTRONICALLY SIGNED> By: Ryan Barajas MD, FAC 12/02/20 1130 1435 1435 Ryan Barajas MD, FAC /EPI
[2020-12-02 15:27] LABS: HEMATOCRIT 22.2 % (37.0-47.0); HEMOGLOBIN 7.2 gm/dL (12.0-15.0)
[2020-12-02 18:12] LABS: ABSOLUTE LYMPHOCYTES 0.5 thou/uL (0.8-5.3); ABSOLUTE MONOCYTES 0.3 thou/uL (0.0-1.2); ABSOLUTE NEUTROPHILS 11.1 thou/uL (1.6-8.1); BASOPHILS 0.3 %; EOSINOPHILS 0.3 %; HEMATOCRIT 21.7 % (37.0-47.0); LYMPHOCYTES 4.5 %; MCH 25.8 pg (26.0-34.0); MCHC 32.3 g/dL (28.0-37.0); MCV 79.8 fL (80.0-100.0); MONOCYTES 2.7 %; MPV 7.8 fl. (7.2-11.1); NUCLEATED RBCS 0 /100WBC; PLATELET COUNT* 265 thou/uL (150-400); POLYS 92.2 %; RBC 2.72 mil/uL (4.20-5.00); RDW-CV 22.2 % (10.5-14.5)
[2020-12-02 18:26] LABS: CALCIUM 8.4 mg/dL (8.5-10.1); CREATININE 1.5 mg/dL (0.6-1.3); POTASSIUM 4.6 mmol/L (3.5-5.1)
[2020-12-02 22:00] LABS: ABSOLUTE LYMPHOCYTES 0.5 thou/uL (0.8-5.3); ABSOLUTE MONOCYTES 0.2 thou/uL (0.0-1.2); ABSOLUTE NEUTROPHILS 13.5 thou/uL (1.6-8.1); BASOPHILS 0.1 %; EOSINOPHILS 0.1 %; HEMATOCRIT 24.2 % (37.0-47.0); HEMOGLOBIN 7.8 gm/dL (12.0-15.0); LYMPHOCYTES 3.4 %; MCH 25.5 pg (26.0-34.0); MCHC 32.1 g/dL (28.0-37.0); MCV 79.6 fL (80.0-100.0); MONOCYTES 1.4 %; MPV 7.7 fl. (7.2-11.1); NUCLEATED RBCS 0 /100WBC; PLATELET COUNT* 271 thou/uL (150-400); RBC 3.04 mil/uL (4.20-5.00); RDW-CV 21.9 % (10.5-14.5); WBC 14.2 thou/uL (4.0-11.0)
[2020-12-02 22:06] LABS: CALCIUM 8.4 mg/dL (8.5-10.1); CREATININE 1.5 mg/dL (0.6-1.3); POTASSIUM 4.8 mmol/L (3.5-5.1)
[2020-12-03 04:00] VITALS: BP 125/55
[2020-12-03 05:20] LABS: ABSOLUTE LYMPHOCYTES 0.7 thou/uL (0.8-5.3); ABSOLUTE MONOCYTES 0.6 thou/uL (0.0-1.2); ABSOLUTE NEUTROPHILS 9.8 thou/uL (1.6-8.1); BASOPHILS 0.1 %; HEMATOCRIT 21.2 % (37.0-47.0); LYMPHOCYTES 6.1 %; MCH 25.6 pg (26.0-34.0); MONOCYTES 5.5 %; MPV 7.9 fl. (7.2-11.1); NUCLEATED RBCS 0 /100WBC; PLATELET COUNT* 240 thou/uL (150-400); POLYS 88.3 %; RBC 2.65 mil/uL (4.20-5.00); RDW-CV 22.3 % (10.5-14.5)
[2020-12-03 05:25] LABS: ALBUMIN 2.9 g/dL (3.4-5.0); CALCIUM 8.4 mg/dL (8.5-10.1); CREATININE 1.4 mg/dL (0.6-1.3); MAGNESIUM 2.3 mg/dL (1.8-2.4); POTASSIUM 4.3 mmol/L (3.5-5.1); TOTAL BILIRUBIN 0.5 mg/dL (<0.1-1.0); TOTAL PROTEIN 6.8 g/dL (6.4-8.2)
[2020-12-03 05:40] LABS: HEMOGLOBIN 6.8 gm/dL (12.0-15.0)
[2020-12-03 11:56] VITALS: BP 115/58
--- NOTE | 2020-12-03 14:07 | PATH ---
[address] [address] PATHOLOGY RPT PROCEDURE Name: DM HERNADEZ Room: [address] IN [facility]#: [id number] Admission: 11/30/20 Date of : 62 Discharge: Report #: [id number] Path Case #: [id number] Note [facility] Accession Number: [id number] TESTS RESULT FLAG UNITS REF RANGE LAB Clinician Provided Cytology Information No. of containers..01 Other (Miscellaneous) Source: RT PLEURAL FLUID DIAGNOSIS: RT PLEURAL FLUID NEGATIVE FOR MALIGNANT CELLS. REACTIVE MESOTHELIAL CELLS ARE PRESENT. THIS INTERPRETATION INCLUDES EVALUATION OF A CELL BLOCK. Signed out by: 02 Marcus Gresham MD, Pathologist NPI- [id number] Performed by: 01 Ondina Taylor, Physician Office Clin Asst ([facility]) Gross description: 01 80ML, CLOUDY RED, 1 TP 1CB /LCS 12/02/2020 1821 Local FLAG LEGEND: L-Low Normal,H-High Normal,LL-Alert Low,HH-Alert High <-Panic Low,>-Panic High,A-Abnormal,AA-Critical Abnormal Performed at: [address] [place] [address] Marcus Gresham MD, [address] [address] Margaux Boles MD, Specimen Comment: Report sent to Performed at: [address], [place], [place] [id number] MD Marcus Gresham MD Phone: [phone]
--- NOTE | 2020-12-03 14:08 | CON ---
[address] [address] CONSULTATION Name: DM HERNADEZ Room: [address] IN .R.#: [id number] Admission: 11/30/20 Attend Phys: Quang Muñoz MD Discharge: Date of : 62 Report #: [id number] THIS REPORT FOR: cc: Steve Medina MD, Anthony MD ~ Porfirio Pedraza MD DATE OF SERVICE: 12/02/2020 REQUESTING PHYSICIAN: Roni Barkley DO INDICATION FOR CONSULTATION: Shortness of breath. HISTORY OF PRESENT ILLNESS: This is a 60-year-old female with past medical history is as mentioned below. This does include a history of coronary artery disease. The patient has had cardiac stents placed in fall of last year. The patient is on Plavix. There are significant abnormalities on her echo as well, which are as described below. The patient's baseline creatinine is normal. The patient is an active smoker, does carry a diagnosis of COPD. Also has a body mass index elevated to 36. The patient is now admitted on 11/30. Note that she had a chest x-ray done on 11/18, which in fact does not show any large pleural effusions. The patient was now admitted with increasing shortness of breath over the last few days. When I ask her now, the patient says that she has been feeling weak and had increasing shortness of breath and these were essentially her only complaints and she was admitted. She had only minimal chest discomfort on the right side with respiration and coughing. The patient was noted to be anemic on initial presentation, her hemoglobin was decreased to 7.9, she has a baseline hemoglobin of 11.8. The patient also had a rise in creatinine. Her baseline creatinine is 1.0, creatinine was 1.4 on 11/18 and on admission, it was 1.5. The patient has been treated with prednisone and also has received ceftriaxone. She underwent thoracentesis yesterday. The patient reports that this was a difficult stick. There was 1260 mL of serosanguineous fluid removed. The patient says that she had increasing shortness of breath as well as chest pain with respiration and coughing, which is fairly significant now. She says that this began after the thoracentesis was performed. There was also a drop in her hemoglobin today. We dropped down to 5.8. She received packed RBCs and she is now up to 7.0. We have to do CT in 2 attempts because she was having chest pain, which was distressing enough for her to be able to find it very difficult to lie down for CT. The patient is continuing to maintain O2 saturation in the mid 90s on 2 liters oxygen via nasal cannula. She is also so far remained hemodynamically stable. The patient has been in significant pain and was short of breath at the time of my evaluation and therefore, [place] [address] CONSULTATION Name: SATYAMDOUSMANE CARBONE Room: [address] IN [facility].#: [id number] Admission: 11/30/20 Attend Phys: Quang Muñoz MD Discharge: Date of : 62 Report #: [id number] detailed review of systems and a review of systems for 12 points as obtained from the patient is negative except as mentioned above. PAST MEDICAL HISTORY: Coronary artery disease, status post stents a few months ago as described. There is an echocardiogram, which was done on 11/23, it shows pulmonary artery systolic of 67.7. Her last echo previously available is from 2019, which was normal right heart pressures. The patient's left ventricular ejection fraction on the new echo is 40-45%, which has not changed. Also COPD, endometriosis, ovarian cyst, diabetic, hypertension, hyperlipidemia. SOCIAL HISTORY: Active smoker, 2-1/2 packs a day. Has been smoking for several decades. No known history of heavy alcohol use or illegal drug use. CURRENT MEDICATIONS: List in [facility]ancy reviewed. HOME MEDICATIONS: List in [facility]ancy also reviewed. Note that the patient has been on Plavix long-term in addition to other medications. PHYSICAL EXAMINATION: GENERAL: The patient was obviously in distress and was complaining of significant right-sided chest pain, was also short of breath at rest. VITAL SIGNS: Had a pulse of 93 and a blood pressure of 129/55. She still was saturating around 94-95% on 2 liters nasal cannula, respiratory rate was mildly elevated to 22. She is afebrile with a temperature of 36.3. Body mass index 36.1. HEENT: Head is normocephalic and atraumatic. Pupils are equal and reactive. There is no throat erythema. She does appear to have a narrow airway. NECK: Does not show raised JVP, asymmetry, mass or lymph nodes. CHEST: Symmetrical expansion on inspection and palpation. On auscultation, breath sounds were decreased at the right lung base. I do not hear any added sounds. HEART: Regular. No murmur. ABDOMEN: Soft and nontender. LOWER EXTREMITIES: No edema, no calf tenderness. SKIN: Dry and intact. NEUROLOGICAL: Moves all extremities bilaterally equally and spontaneously with no focal deficit identified. LABORATORY DATA: The patient had various chest x-rays performed. These show pleural effusion. See discussion above regarding how these pleural effusions have progressed. The patient just had a chest tube placed. CT chest also shows a significant possibly partially loculated pleural effusion on the right side. There is significant amount of compressive atelectasis, infiltrate is present, may be masked by the presence of significant atelectasis. I suspect that there [address] [address] CONSULTATION Name: SATYADMOUSMANE CARBONE Room: [address] IN [facility]#: [id number] Admission: 11/30/20 Attend Phys: Quang Muñoz MD Discharge: Date of : 62 Report #: [id number] are infiltrates present. There is also left adrenal mass, likely benign. The patient's lab work is in Fancy and this is reviewed. ASSESSMENT AND PLAN: 1. Shortness of breath. This primarily appears to be secondary to the pleural effusion. At first glance while the patient has a history of congestive heart failure, it does not in fact appear likely to me that the patient had decompensation of heart failure. 2. Right-sided pleural effusion. This is not present on the x-ray performed on 11/18 as an outpatient. This does appear on the x-ray performed on admission and in fact has increased after the thoracentesis. We will need to evaluate further, but at first glance this pleural effusion does not appear to be primarily related to congestive heart failure. Since the development of the pleural effusion is acute, it is entirely possible that the patient initially had an infiltrate in the right lower lung with a parapneumonic pleural effusion and it will be possible that the patient subsequently developed empyema. Also, there is an increase in size after the thoracentesis, therefore, it appeared that some hemorrhage may have occurred after the thoracentesis. It is not entirely clear as to whether there was some bleeding into the pleural space prior as well. Also the patient did have dropping hemoglobin before. I consulted Dr. Tuttle, who has proceeded to placing a chest tube. We will follow response. If this pleural effusion does not improve soon, then the patient would need a Cardiothoracic Surgery opinion. 3. Pulmonary infiltrates/possible empyema. See discussion as above. I will cover broadly. I started with Zosyn and doxycycline. Various cultures and serologies are sent. I will review again tomorrow morning. If this fails to improve, then I will consider adding further MRSA coverage, likely linezolid and I may also consider reviewing the case with the Infectious Disease Service. 4. Acute severe pulmonary hypertension. There is a pulmonary artery systolic elevated to 68, this is new at least since 2019. It therefore will be possible that the patient has acute pulmonary emboli. Regardless due to hemorrhage and anemia, anticoagulation is not an option. We performed venous Dopplers, these are negative. Once the patient has stabilized, I will request the Cardiology service to repeat a limited echo and verify right heart pressures. I also ordered a D-dimer tomorrow morning. V/Q scan will be nondiagnostic in this patient and therefore, I did not order for now. 5. Acute blood loss anemia/acute renal insufficiency. We will need to follow hemoglobin and hematocrit as well as creatinine closely. If hemoglobin drops below 7 again, then recommend packed RBCs if the patient continues to bleed. I also ordered a renal ultrasound to rule out urinary tract obstruction. The GI service is on the case. I increased PPI to b.i.d. 6. Coronary artery disease with congestive heart failure. The patient does have congestive heart failure. In fact, there may be some increase in pulmonary vascular congestion on the last chest x-ray as well; however, as above, it does [facility] [address] [place] [address] CONSULTATION Name: DM HERNADEZ Room: [address] IN [facility]#: [id number] Admission: 11/30/20 Attend Phys: Quang Muñoz MD Discharge: Date of : 62 Report #: [id number] not appear to me that the primary etiology of the patient's presentation is heart failure. Also, despite understanding risk and holding Plavix and anticoagulation considering recent stents after discussing with the Cardiology Service, we held these medications due to anemia. 7. Chronic obstructive pulmonary disease. Nebulized bronchodilators and Solu-Medrol overnight. I understand this will lead to increase in insulin needs. 8. History of diabetes. 9. Elevated body mass index at 36, I suspect the patient has underlying obstructive sleep apnea as well. Thanks for this consultation. <ELECTRONICALLY SIGNED> By: Porfirio Pedraza MD 12/03/20 1408 2059 [id number] Pedraza MD /nt
[2020-12-03 15:07] LABS: BODY FLUID PROTEIN 2.2 g/dL (())
[2020-12-03 17:07] VITALS: BP 109/39; BP 112/40; BP 115/39; BP 116/64; BP 124/36
[2020-12-03 18:06] LABS: BODY FLUID PH 7.9 (Not Estab.)
[2020-12-03 21:00] VITALS: BP 112/40
[2020-12-03 23:33] VITALS: BP 130/52
[2020-12-04 04:13] VITALS: BP 136/69
[2020-12-04 04:35] LABS: ABSOLUTE LYMPHOCYTES 2.3 thou/uL (0.8-5.3); ABSOLUTE MONOCYTES 0.7 thou/uL (0.0-1.2); BASOPHILS 0.2 %; EOSINOPHILS 0.1 %; HEMATOCRIT 24.2 % (37.0-47.0); LYMPHOCYTES 20.6 %; MCH 26.5 pg (26.0-34.0); MCV 80.3 fL (80.0-100.0); MONOCYTES 6.7 %; MPV 7.6 fl. (7.2-11.1); NUCLEATED RBCS 0 /100WBC; PLATELET COUNT* 249 thou/uL (150-400); POLYS 72.4 %; RBC 3.02 mil/uL (4.20-5.00); RDW-CV 20.8 % (10.5-14.5); WBC 11.1 thou/uL (4.0-11.0)
[2020-12-04 05:22] LABS: ALBUMIN 2.7 g/dL (3.4-5.0); CALCIUM 9.3 mg/dL (8.5-10.1); CREATININE 1.3 mg/dL (0.6-1.3); MAGNESIUM 2.2 mg/dL (1.8-2.4); POTASSIUM 4.2 mmol/L (3.5-5.1); TOTAL BILIRUBIN 0.6 mg/dL (<0.1-1.0); TOTAL PROTEIN 6.5 g/dL (6.4-8.2)
[2020-12-04 07:20] VITALS: BP 139/53
[2020-12-04 12:44] VITALS: BP 132/50
[2020-12-04 17:13] VITALS: BP 126/45
[2020-12-04 19:34] LABS: SOURCE THORACENTESIS
[2020-12-04 20:39] VITALS: BP 109/60
[2020-12-04 23:36] VITALS: BP 124/49
[2020-12-05 04:18] LABS: ABSOLUTE EOSINOPHILS 0.1 thou/uL (0.0-0.7); ABSOLUTE LYMPHOCYTES 1.8 thou/uL (0.8-5.3); ABSOLUTE MONOCYTES 0.6 thou/uL (0.0-1.2); ABSOLUTE NEUTROPHILS 6.7 thou/uL (1.6-8.1); BASOPHILS 0.2 %; EOSINOPHILS 0.9 %; HEMATOCRIT 24.6 % (37.0-47.0); HEMOGLOBIN 8.1 gm/dL (12.0-15.0); LYMPHOCYTES 19.6 %; MCH 26.9 pg (26.0-34.0); MCHC 33.1 g/dL (28.0-37.0); MCV 81.4 fL (80.0-100.0); MONOCYTES 6.9 %; MPV 7.5 fl. (7.2-11.1); NUCLEATED RBCS 0 /100WBC; PLATELET COUNT* 251 thou/uL (150-400); POLYS 72.4 %; RBC 3.03 mil/uL (4.20-5.00); RDW-CV 21.3 % (10.5-14.5); WBC 9.2 thou/uL (4.0-11.0)
[2020-12-05 04:24] VITALS: BP 141/60
[2020-12-05 04:32] LABS: ALBUMIN 2.8 g/dL (3.4-5.0); CALCIUM 9.3 mg/dL (8.5-10.1); CREATININE 1.2 mg/dL (0.6-1.3); TOTAL BILIRUBIN 0.4 mg/dL (<0.1-1.0); TOTAL PROTEIN 6.6 g/dL (6.4-8.2)
[2020-12-05 04:37] LABS: PREALBUMIN 15.4 mg/dL (18.0-35.7)
[2020-12-05 12:00] VITALS: BP 128/74
[2020-12-05 16:00] VITALS: BP 121/68
[2020-12-05 20:00] VITALS: BP 131/61
[2020-12-05 23:32] VITALS: BP 127/46
[2020-12-06 05:32] VITALS: BP 144/66
[2020-12-06 08:00] VITALS: BP 121/42
[2020-12-06 08:57] LABS: ABSOLUTE EOSINOPHILS 0.2 thou/uL (0.0-0.7); ABSOLUTE LYMPHOCYTES 1.7 thou/uL (0.8-5.3); ABSOLUTE MONOCYTES 0.4 thou/uL (0.0-1.2); ABSOLUTE NEUTROPHILS 5.9 thou/uL (1.6-8.1); BASOPHILS 0.5 %; EOSINOPHILS 2.9 %; HEMATOCRIT 24.8 % (37.0-47.0); HEMOGLOBIN 7.9 gm/dL (12.0-15.0); LYMPHOCYTES 20.8 %; MCH 26.3 pg (26.0-34.0); MCHC 32.1 g/dL (28.0-37.0); MCV 81.9 fL (80.0-100.0); MONOCYTES 4.8 %; MPV 7.6 fl. (7.2-11.1); NUCLEATED RBCS 0 /100WBC; PLATELET COUNT* 261 thou/uL (150-400); RBC 3.02 mil/uL (4.20-5.00); RDW-CV 21.1 % (10.5-14.5); WBC 8.3 thou/uL (4.0-11.0)
[2020-12-06 09:06] LABS: ALBUMIN 2.8 g/dL (3.4-5.0); CALCIUM 8.5 mg/dL (8.5-10.1); CREATININE 1.1 mg/dL (0.6-1.3); POTASSIUM 4.4 mmol/L (3.5-5.1); TOTAL BILIRUBIN 0.2 mg/dL (<0.1-1.0); TOTAL PROTEIN 6.1 g/dL (6.4-8.2)
[2020-12-06 12:00] VITALS: BP 127/59
[2020-12-06 16:00] VITALS: BP 123/56
[2020-12-06 20:00] VITALS: BP 116/43
[2020-12-07] VITALS: BP 107/47
[2020-12-07 02:06] LABS: MYCOPLASMA PNEUMONIA IgG 142 U/mL (0-99); MYCOPLASMA PNEUMONIA IgM <770 U/mL (0-769)
[2020-12-07 04:17] VITALS: BP 133/57
[2020-12-07 05:13] LABS: ABSOLUTE EOSINOPHILS 0.4 thou/uL (0.0-0.7); ABSOLUTE MONOCYTES 0.7 thou/uL (0.0-1.2); ABSOLUTE NEUTROPHILS 7.8 thou/uL (1.6-8.1); BASOPHILS 0.4 %; EOSINOPHILS 3.4 %; HEMATOCRIT 25.3 % (37.0-47.0); HEMOGLOBIN 8.1 gm/dL (12.0-15.0); LYMPHOCYTES 17.9 %; MCHC 32.2 g/dL (28.0-37.0); MCV 80.8 fL (80.0-100.0); MONOCYTES 6.5 %; MPV 7.4 fl. (7.2-11.1); NUCLEATED RBCS 0 /100WBC; PLATELET COUNT* 326 thou/uL (150-400); POLYS 71.8 %; RBC 3.13 mil/uL (4.20-5.00); RDW-CV 21.5 % (10.5-14.5); WBC 10.9 thou/uL (4.0-11.0)
[2020-12-07 05:22] LABS: ALBUMIN 2.8 g/dL (3.4-5.0); CALCIUM 8.4 mg/dL (8.5-10.1); POTASSIUM 3.6 mmol/L (3.5-5.1); TOTAL BILIRUBIN 0.2 mg/dL (<0.1-1.0); TOTAL PROTEIN 6.5 g/dL (6.4-8.2)
[2020-12-07 05:26] LABS: PREALBUMIN 16.6 mg/dL (18.0-35.7)
[2020-12-07 07:36] LABS: HYPOCHROMASIA 2+; PLATELET ESTIMATE ADEQUATE
[2020-12-07 07:37] LABS: ANISOCYTOSIS 1+; POIKILOCYTOSIS 1+; POLYCHROMASIA 2+
[2020-12-07 08:00] VITALS: BP 129/70
[2020-12-07 12:03] VITALS: BP 110/52
--- NOTE | 2020-12-07 15:16 | CON ---
[address] [address] CONSULTATION Name: DM HERNADEZ Room: [address] IN .R.#: [id number] Admission: 11/30/20 Attend Phys: Quang Muñoz MD Discharge: Date of : 62 Report #: [id number] THIS REPORT FOR: cc: Steve Medina MD, Anthony MD ~ Ryan Zavala MD DATE OF SERVICE: 12/03/2020 We are asked to see the patient by the hospitalists. HISTORY OF PRESENT ILLNESS: The patient is a 60-year-old admitted on 11/30/2020 with shortness of air. The patient has a history of heart failure and coronary artery disease and has had, according to the patient, 7 stents placed in the past, last stents were placed in 06/2020 in the [facility]. Since admission, the patient has had a thoracentesis. Unfortunately, after 1250 mL was removed, the effusion appeared worse at least by CT scan and a chest tube was placed. This seems to have drained 1730 by the nursing reports and the patient is on her second atrium collection chamber. PAST MEDICAL HISTORY: Significant for hypertension, coronary artery disease, diabetes mellitus, ejection fraction 45% by echo. The patient is a former smoker who states she quit on this admission. HOME MEDICATIONS: Includes gabapentin, Lasix, glimepiride, sitagliptin, losartan, insulin, fluticasone, umeclidin-vilanter (Trelegy Ellipta inhaler), omeprazole, clopidogrel, nicotine patch, rosuvastatin, metoprolol, alprazolam, aspirin. ALLERGIES: The patient is allergic to IBUPROFEN. SOCIAL HISTORY: As mentioned, former tobacco smoker. REVIEW OF SYSTEMS: CONSTITUTIONAL: Denies fever or chills. RESPIRATORY: As mentioned, cough, shortness of breath, sputum production. CARDIAC: Denies chest pain or palpitations on admission. EYES: No vision changes. HENT: No headache, nasal discharge or sore throat. GASTROINTESTINAL: No abdominal pain, nausea, vomiting. GENITOURINARY: No urinary frequency, urgency. MUSCULOSKELETAL: Denies bone and joint pain. SKIN: Denies rash or infection. NEUROLOGIC: [place] [address] CONSULTATION Name: DM HERNADEZ Room: [address]#: [id number] Admission: 11/30/20 Attend Phys: Quang Muñoz MD Discharge: Date of : 62 Report #: [id number] ENDOCRINE: Denies goiter or tremor. PHYSICAL EXAMINATION: GENERAL: The patient is sitting on side of bed, seemingly reasonably comfortable. VITAL SIGNS: Temperature 36.2, heart rate 77, respiratory rate 20, pulse ox 97 on 2 liters, blood pressure 115/58. HEENT: No scleral icterus, no arcus. NECK: Right cervical bruit 1+, none on the left, no mass. CHEST: Somewhat decreased breath sounds right base with scratchy sound, left side appears clear. HEART: Rhythm regular, no murmur. ABDOMEN: Protuberant, soft. EXTREMITIES: No clubbing, cyanosis or edema. SKIN: No rash or infection. NEUROLOGIC: No motor or sensory dysfunction. MUSCULOSKELETAL: No obvious bone or joint asymmetry or deformity. PSYCHIATRIC: Answers questions appropriately and gives a detailed history. ASSESSMENT AND PLAN: I reviewed the multiple chest x-rays, the last 3 chest x-rays, all appear incrementally improved over the previous one. Chest tube was in good position and there was only small blunting of the costophrenic angle on the AP exams. We know the patient has had some anemia, but this may be related to the pleural effusion, whatever its cause. At this point, the patient is afebrile, no white count and trivial amounts of fluid in the chest. There is no indication for any further intervention. I would leave the current chest tube in place until drainage is minimal and then it can be removed if there is any recrudescence, particularly if there is concern about loculation, then I would obtain a CT scan and consider either intervention in terms of either a localized pigtail catheter or surgery course with Plavix on board. The patient will be more likely to have complications related to that. At this point, I concur with current management and see no further indication for surgical involvement, but I will continue to review the x-rays and monitor the patient if at a distance. Thank you for the consult. <ELECTRONICALLY SIGNED> By: Ryan Zavala MD 12/07/20 1516 1439 1917Ryan Zavala MD /brendon
[2020-12-07 16:32] VITALS: BP 131/58
--- NOTE | 2020-12-07 16:37 | 2DMMODE ---
[place] [address] 2 D/M-MODE ECHOCARDIOGRAM Name: DM HERNADEZ Room: [address] IN [place].#: [id number] Admission: 11/30/20 Attend Phys: Quang Muñoz, Discharge: Date of : 62 Date of Service: 12/07/20 1636 Report #: [id number] THIS REPORT FOR: cc: Steve Medina MD, Anthony MD Blick,Juan Manuel Rousseau MD [facility] ~ ADDENDUM APPROVED REPORT Study performed: 12/07/2020 15:48:49 EXAM: Limited 2D Echocardiogram Patient Location: In-Patient Room #: [facility] Status: routine BSA: 2.04 HR: 87 bpm BP: 110/52 mmHg Rhythm: NSR Other Information Study Quality: Good Indications Congestive Heart Failure Reassess PA pressures Tricuspid Valve RAP Estimate: 5.00 mmHg TR Peak Gr.: 62.11 mmHg RVSP: 67.00 mmHg PA Pressure: 67.00 mmHg Left Ventricle The left ventricle is normal size. moderate apical hypokinesis noted There is normal left ventricular wall thickness. Left ventricular systolic function is mildly decreased. LVEF is 40-45%. Right Ventricle The right ventricle is normal size. Atria Left atrium is mildly dilated. Right atrium is dilated. Aortic Valve The aortic valve [place] [address] 2 D/M-MODE ECHOCARDIOGRAM Name: DM HERNADEZ Room: [address] IN M.R.#: [id number] Admission: 11/30/20 Attend Phys: Quang Muñoz, Discharge: Date of : 62 Date of Service: 12/07/201635 Report #: [id number] Mitral Valve There is mitral annular calcification. The mitral valve is normal in structure. Tricuspid Valve The tricuspid valve is normal in structure. Mild tricuspid regurgitation. estimated pa pressure 70 mm Hg Pulmonic Valve The pulmonary valve is normal in structure. Great Vessels The aortic root is normal in size. IVC is normal in size and collapses >50% with inspiration. Pericardium There is no pericardial effusion. <Conclusion> estimated pa pressure 70 mm Hg moderate apical hypokinesis noted LVEF is 40-45%. Mild tricuspid regurgitation. <ELECTRONICALLY SIGNED> By: Juan Manuel Ospina MD, FACC 12/07/201635 35 35 Juan Manuel Ospina MD, FACC /INF
[2020-12-07 20:14] VITALS: BP 124/56
[2020-12-08] VITALS: BP 126/66; BP 139/85
[2020-12-08 04:00] VITALS: BP 133/57
[2020-12-08 04:20] LABS: ABSOLUTE BASOPHILS 0.1 thou/uL (0.0-0.2); ABSOLUTE EOSINOPHILS 0.4 thou/uL (0.0-0.7); ABSOLUTE LYMPHOCYTES 2.1 thou/uL (0.8-5.3); ABSOLUTE MONOCYTES 0.6 thou/uL (0.0-1.2); ABSOLUTE NEUTROPHILS 6.2 thou/uL (1.6-8.1); BASOPHILS 1.5 %; EOSINOPHILS 4.7 %; HEMATOCRIT 25.9 % (37.0-47.0); HEMOGLOBIN 8.3 gm/dL (12.0-15.0); LYMPHOCYTES 22.7 %; MCHC 31.8 g/dL (28.0-37.0); MCV 81.7 fL (80.0-100.0); MONOCYTES 5.9 %; MPV 7.3 fl. (7.2-11.1); NUCLEATED RBCS 0 /100WBC; PLATELET COUNT* 296 thou/uL (150-400); POLYS 65.2 %; RBC 3.18 mil/uL (4.20-5.00); RDW-CV 21.5 % (10.5-14.5); WBC 9.5 thou/uL (4.0-11.0)
[2020-12-08 04:47] LABS: CALCIUM 8.6 mg/dL (8.5-10.1); POTASSIUM 3.7 mmol/L (3.5-5.1)
[2020-12-08 07:30] VITALS: BP 134/74
[2020-12-08] MEDS ORDERED: PREDNISONE 10 M10 MG PO (09:35)
[2020-12-08] MEDS ORDERED: IRON325 M1 PO (10:14)
[2020-12-08 11:54] VITALS: BP 134/74
[2020-12-08] MEDS ORDERED: BUMETANIDE 1 MG1 M1 PO (12:46)
== END 2020-12-08 14:48 | disposition home or self-care (01) | DRG 177 ==
LOC: M.ERS 12:21 → M.TBA-ER 13:58 → M.2W 13:58
PROVIDERS: Family Medicine; Internal Medicine; Internal Medicine Critical Care Medicine; Nurse Practitioner Family; Surgery; ADMIT Internal Medicine; ATTEND Internal Medicine
PROC: 0W993ZZ Drainage of Right Pleural Cavity, Percutaneous Approach (ICD-10-PCS; principal; 2020-12-01)
PROC: 30233N1 Transfusion of Nonautologous Red Blood Cells into Peripheral Vein, Percutaneous Approach (ICD-10-PCS; 2020-12-02)
DX: J15.6 Pneumonia due to other Gram-negative bacteria (principal); I50.43 Acute on chronic combined systolic (congestive) and diastolic (congestive) heart failure; J96.21 Acute and chronic respiratory failure with hypoxia; I21.4 Non-ST elevation (NSTEMI) myocardial infarction; D62 Acute posthemorrhagic anemia; J91.8 Pleural effusion in other conditions classified elsewhere; I13.0 Hypertensive heart and chronic kidney disease with heart failure and stage 1 through stage 4 chronic kidney disease, or unspecified chronic kidney disease; N17.9 Acute kidney failure, unspecified; J93.83 Other pneumothorax; I27.20 Pulmonary hypertension, unspecified; E78.5 Hyperlipidemia, unspecified; F17.210 Nicotine dependence, cigarettes, uncomplicated; N18.9 Chronic kidney disease, unspecified; E11.22 Type 2 diabetes mellitus with diabetic chronic kidney disease; I25.5 Ischemic cardiomyopathy; K64.9 Unspecified hemorrhoids; I25.10 Atherosclerotic heart disease of native coronary artery without angina pectoris; Z20.822 Contact with and (suspected) exposure to COVID-19; Z95.5 Presence of coronary angioplasty implant and graft; Z90.49 Acquired absence of other specified parts of digestive tract; Z79.01 Long term (current) use of anticoagulants; Z79.4 Long term (current) use of insulin; Z79.82 Long term (current) use of aspirin; Z79.899 Other long term (current) drug therapy; Z88.8 Allergy status to other drugs, medicaments and biological substances

== ENCOUNTER → 2020-12-14 | Outpatient (CLI) | payer OTHER ==
[~2020-12-14] MED LIST changes: +BUMETANIDE 1 MG1 M1 PO; +BUSPIRONE HCL10 MG PO; +COZAAR100 MG PO; +FUROSEMIDE 40 M40 MG PO; +GLIMEPIRIDE4 MG PO; +IRON325 M1 PO; +JANUVIA100 MG PO; +METOPROLOL SUC100 MG PO; +PREDNISONE 10 M10 MG PO; +SPIRONOLACTONE25 MG PO; +TOUJEO SOL300 UNIT/1 SUBQ; +TRELEGY ELLIPT1 EACH INH; +VITAMIN B-121000 MC2 SUBLING
[2020-12-14 16:53] LABS: ABSOLUTE BASOPHILS 0.1 thou/uL (0.0-0.2); ABSOLUTE EOSINOPHILS 0.1 thou/uL (0.0-0.7); ABSOLUTE LYMPHOCYTES 1.2 thou/uL (0.8-5.3); ABSOLUTE MONOCYTES 0.5 thou/uL (0.0-1.2); ABSOLUTE NEUTROPHILS 8.1 thou/uL (1.6-8.1); EOSINOPHILS 0.7 %; HEMATOCRIT 26.6 % (37.0-47.0); HEMOGLOBIN 8.4 gm/dL (12.0-15.0); LYMPHOCYTES 11.9 %; MCH 25.9 pg (26.0-34.0); MCHC 31.5 g/dL (28.0-37.0); MONOCYTES 4.7 %; MPV 7.2 fl. (7.2-11.1); NUCLEATED RBCS 0 /100WBC; PLATELET COUNT* 280 thou/uL (150-400); POLYS 81.7 %; RBC 3.24 mil/uL (4.20-5.00); RDW-CV 22.6 % (10.5-14.5)
[2020-12-14 17:06] LABS: ALBUMIN 2.6 g/dL (3.4-5.0); CREATININE 1.4 mg/dL (0.6-1.3); MAGNESIUM 2.1 mg/dL (1.8-2.4); TOTAL BILIRUBIN 0.3 mg/dL (<0.1-1.0); TOTAL PROTEIN 6.5 g/dL (6.4-8.2)
[2020-12-14 17:22] LABS: ANISOCYTOSIS 2+; HYPOCHROMASIA Occasional; PLATELET ESTIMATE ADEQUATE; POIKILOCYTOSIS 1+; POLYCHROMASIA 1+
== END ==
LOC: M.LAB 16:35
PROVIDERS: ATTEND Internal Medicine Critical Care Medicine
DX: J90 Pleural effusion, not elsewhere classified (principal); I27.20 Pulmonary hypertension, unspecified; J44.9 Chronic obstructive pulmonary disease, unspecified; D64.9 Anemia, unspecified

== ENCOUNTER 2020-12-16 13:11 | Inpatient (IN) | payer OTHER ==
[~2020-12-16] VITALS: Ht 167.6 cm; Wt 102.0 kg
[2020-12-16] VITALS (10 sets, daily range): BP systolic 93–123; BP diastolic 38–65
[2020-12-16 13:54] LABS: HEMATOCRIT 23.8 % (37.0-47.0); HEMOGLOBIN 7.5 gm/dL (12.0-15.0); MCH 25.9 pg (26.0-34.0); MCHC 31.4 g/dL (28.0-37.0); MCV 82.4 fL (80.0-100.0); MPV 7.7 fl. (7.2-11.1); NUCLEATED RBCS 0 /100WBC; PLATELET COUNT* 207 thou/uL (150-400); RBC 2.89 mil/uL (4.20-5.00); RDW-CV 23.3 % (10.5-14.5); WBC 8.8 thou/uL (4.0-11.0)
[2020-12-16 14:12] LABS: CALCIUM 8.8 mg/dL (8.5-10.1); CREATININE 2.1 mg/dL (0.6-1.3); POTASSIUM 4.4 mmol/L (3.5-5.1)
[2020-12-16 14:23] LABS: ALBUMIN 2.6 g/dL (3.4-5.0); MAGNESIUM 2.1 mg/dL (1.8-2.4); TOTAL BILIRUBIN 0.5 mg/dL (<0.1-1.0); TOTAL PROTEIN 6.6 g/dL (6.4-8.2)
[2020-12-16 14:26] LABS: ABSOLUTE EOSINOPHILS 0.1 thou/uL (0.0-0.7); ABSOLUTE LYMPHOCYTES 0.7 thou/uL (0.8-5.3); ABSOLUTE MONOCYTES 0.1 thou/uL (0.0-1.2); ABSOLUTE NEUTROPHILS 7.9 thou/uL (1.6-8.1); ANISOCYTOSIS 2+; HYPOCHROMASIA 2+; METAMYELOCYTES 1 %; MICROCYTES 2+; PLATELET ESTIMATE ADEQUATE
--- NOTE | 2020-12-16 16:39 | EKG ---
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 : 1960 Requested By: Barron Newman Order Number: [id number] MD: Ozzy Loredo Measurements Intervals [place] Rate: 79 P: 67 IA: 165 QRS: -9 QRSD: 104 T: 174 QT: 424 QTc: 487 Interpretive Statements Sinus rhythm Repol abnrm suggests ischemia, anterolateral Compared to ECG 12/01/2020 14:35:23 Early repolarization now present Intraventricular conduction delay no longer present Possible ischemia still present Electronically Signed On 12-16-2020 16:38:52 MILLINERY COPYIST by Ozzy Loredo [email or web address] <ELECTRONICALLY SIGNED> By: Ozzy Loredo MD, FACC 12/16/20 1638 1318 1318 Ozzy Loredo MD, FACC /EPI
[2020-12-17] VITALS (10 sets, daily range): BP systolic 92–132; BP diastolic 40–69
[2020-12-17 05:24] LABS: HEMATOCRIT 26.2 % (37.0-47.0); HEMOGLOBIN 8.3 gm/dL (12.0-15.0); MCH 26.2 pg (26.0-34.0); MCHC 31.6 g/dL (28.0-37.0); MCV 83.1 fL (80.0-100.0); MPV 7.9 fl. (7.2-11.1); RBC 3.15 mil/uL (4.20-5.00); WBC 8.5 thou/uL (4.0-11.0)
[2020-12-17 05:36] LABS: CALCIUM 8.7 mg/dL (8.5-10.1); CREATININE 1.6 mg/dL (0.6-1.3); POTASSIUM 4.7 mmol/L (3.5-5.1)
--- NOTE | 2020-12-17 14:44 | 2DMMODE ---
[place] [address] 2 D/M-MODE ECHOCARDIOGRAM Name: DM HERNADEZ [facility] IN .R#: [id number] Admission: 12/16/20 Attend Phys: Roni Barkley Discharge: Date of : 62 Date of Service: 12/17/20 1444 Report #: [id number] THIS REPORT FOR: cc: Steve Medina MD, Anthony MD Holkins,Ryan Mcdonnell MD [facility] ~ APPROVED REPORT Study performed: 12/17/2020 09:58:22 EXAM: Limited 2D Echocardiogram Patient Location: In-Patient Room #: [facility] Status: routine BSA: 2.03 HR: 77 bpm BP: 116/54 mmHg Rhythm: NSR Other Information Study Quality: Good Indications Chest Pain Tricuspid Valve RAP Estimate: 5.00 mmHg TR Peak Gr.: 62.73 mmHg RVSP: 67.00 mmHg PA Pressure: 67.00 mmHg Left Ventricle Left ventricle is at the upper limits of normal. There is moderate diffuse hypokinesis noted with the inferobasilar segment being more hypokinetic.. There is normal left ventricular wall thickness. Left ventricular systolic function is moderately decreased. LVEF is 40%. Right Ventricle The right ventricle is normal size. The right ventricular systolic function is normal. Atria Left atrium is mildly dilated. Right [place]rium [place] [address] 2 D/M-MODE ECHOCARDIOGRAM Name: DM HERNADEZ Room: [address] IN M.R.#: [id number] Admission: 12/16/20 Attend Phys: Roni Barkley Discharge: Date of : 62 Date of Service: 12/17/20 1444 Report #: [id number] Aortic Valve Mild aortic valve sclerosis. Mitral Valve The mitral valve is normal in structure. Tricuspid Valve The tricuspid valve is normal in structure. Moderate tricuspid regurgitation. Moderate pulmonary hypertension. Pulmonic Valve The pulmonary valve is normal in structure. Great Vessels The aortic root is normal in size. IVC is normal in size and collapses >50% with inspiration. Pericardium There is no pericardial effusion. <Conclusion> Left ventricle is at the upper limits of normal. There is normal left ventricular wall thickness. Left ventricular systolic function is moderately decreased. LVEF is 40%. The right ventricle is normal size. Left atrium is mildly dilated. Right atrium is mildly dilated. Mild aortic valve sclerosis. The mitral valve is normal in structure. The tricuspid valve is normal in structure. Moderate tricuspid regurgitation. Moderate pulmonary hypertension. IVC is normal in size and collapses >50% with inspiration. There is no pericardial effusion. There is moderate diffuse hypokinesis of LV wall motion noted with the inferobasilar segment being more hypokinetic.. <ELECTRONICALLY SIGNED> By: Ryan Barajas MD, FACC 12/17/20 1444 1444 1444 Ryan Barajas MD, FACC /INF
[2020-12-18 03:42] VITALS: BP 101/51
[2020-12-18 04:41] LABS: ABSOLUTE BASOPHILS 0.1 thou/uL (0.0-0.2); ABSOLUTE EOSINOPHILS 0.1 thou/uL (0.0-0.7); ABSOLUTE LYMPHOCYTES 0.8 thou/uL (0.8-5.3); ABSOLUTE MONOCYTES 0.4 thou/uL (0.0-1.2); ABSOLUTE NEUTROPHILS 6.2 thou/uL (1.6-8.1); BASOPHILS 0.8 %; HEMATOCRIT 25.3 % (37.0-47.0); HEMOGLOBIN 8.1 gm/dL (12.0-15.0); LYMPHOCYTES 10.1 %; MCH 26.4 pg (26.0-34.0); MCV 82.7 fL (80.0-100.0); MONOCYTES 5.9 %; MPV 8.1 fl. (7.2-11.1); NUCLEATED RBCS 0 /100WBC; PLATELET COUNT* 199 thou/uL (150-400); POLYS 82.2 %; RBC 3.05 mil/uL (4.20-5.00); RDW-CV 22.4 % (10.5-14.5); WBC 7.5 thou/uL (4.0-11.0)
[2020-12-18 04:43] LABS: APTT 27.1 Seconds (25.0-31.3); INR 1.1; PROTIME 11.7 Seconds (9.20-11.50)
[2020-12-18 04:44] LABS: ALBUMIN 2.3 g/dL (3.4-5.0); CREATININE 1.3 mg/dL (0.6-1.3); MAGNESIUM 2.2 mg/dL (1.8-2.4); POTASSIUM 4.3 mmol/L (3.5-5.1); TOTAL BILIRUBIN 0.7 mg/dL (<0.1-1.0); TOTAL PROTEIN 6.5 g/dL (6.4-8.2)
[2020-12-18 08:00] VITALS: BP 116/56
[2020-12-18 08:06] LABS: ANISOCYTOSIS 2+; PLATELET ESTIMATE ADEQUATE
[2020-12-18 12:11] VITALS: BP 110/40
[2020-12-18 12:13] VITALS: BP 96/42
[2020-12-18 16:04] VITALS: BP 97/43
[2020-12-18 20:00] VITALS: BP 110/53
[2020-12-19] VITALS: BP 100/57
[2020-12-19 03:41] VITALS: BP 106/61
[2020-12-19 03:41] LABS: ABSOLUTE BASOPHILS 0.1 thou/uL (0.0-0.2); ABSOLUTE EOSINOPHILS 0.1 thou/uL (0.0-0.7); ABSOLUTE LYMPHOCYTES 0.7 thou/uL (0.8-5.3); ABSOLUTE MONOCYTES 0.4 thou/uL (0.0-1.2); ABSOLUTE NEUTROPHILS 5.2 thou/uL (1.6-8.1); BASOPHILS 1.1 %; EOSINOPHILS 1.5 %; HEMATOCRIT 24.8 % (37.0-47.0); HEMOGLOBIN 7.9 gm/dL (12.0-15.0); LYMPHOCYTES 10.5 %; MCH 26.6 pg (26.0-34.0); MCHC 31.8 g/dL (28.0-37.0); MCV 83.6 fL (80.0-100.0); MONOCYTES 6.8 %; NUCLEATED RBCS 0 /100WBC; PLATELET COUNT* 183 thou/uL (150-400); POLYS 80.1 %; RBC 2.97 mil/uL (4.20-5.00); RDW-CV 21.9 % (10.5-14.5); WBC 6.4 thou/uL (4.0-11.0)
[2020-12-19 03:46] LABS: ALBUMIN 2.3 g/dL (3.4-5.0); CALCIUM 8.4 mg/dL (8.5-10.1); CREATININE 1.2 mg/dL (0.6-1.3); MAGNESIUM 2.2 mg/dL (1.8-2.4); POTASSIUM 4.3 mmol/L (3.5-5.1); TOTAL BILIRUBIN 0.5 mg/dL (<0.1-1.0); TOTAL PROTEIN 6.5 g/dL (6.4-8.2)
[2020-12-19 08:00] VITALS: BP 119/54
[2020-12-19 09:37] LABS: POLYCHROMASIA 1+
[2020-12-19 09:38] LABS: ANISOCYTOSIS 2+
[2020-12-19 12:00] VITALS: BP 131/78
[2020-12-19 16:00] VITALS: BP 121/58
[2020-12-19 20:00] VITALS: BP 123/66
[2020-12-20 00:18] VITALS: BP 110/47
[2020-12-20 04:39] VITALS: BP 110/46
[2020-12-20 04:50] LABS: ALBUMIN 2.2 g/dL (3.4-5.0); CALCIUM 8.9 mg/dL (8.5-10.1); CREATININE 1.2 mg/dL (0.6-1.3); TOTAL BILIRUBIN 0.6 mg/dL (<0.1-1.0); TOTAL PROTEIN 6.5 g/dL (6.4-8.2)
[2020-12-20 04:56] LABS: ABSOLUTE EOSINOPHILS 0.1 thou/uL (0.0-0.7); ABSOLUTE LYMPHOCYTES 0.5 thou/uL (0.8-5.3); ABSOLUTE MONOCYTES 0.4 thou/uL (0.0-1.2); BASOPHILS 0.3 %; EOSINOPHILS 1.7 %; HEMATOCRIT 24.6 % (37.0-47.0); HEMOGLOBIN 8.1 gm/dL (12.0-15.0); LYMPHOCYTES 8.5 %; MCHC 32.8 g/dL (28.0-37.0); MCV 82.2 fL (80.0-100.0); MONOCYTES 7.3 %; MPV 7.7 fl. (7.2-11.1); NUCLEATED RBCS 0 /100WBC; PLATELET COUNT* 206 thou/uL (150-400); POLYS 82.2 %; PREALBUMIN 9.4 mg/dL (18.0-35.7); RBC 2.99 mil/uL (4.20-5.00); WBC 6.1 thou/uL (4.0-11.0)
[2020-12-20 07:19] LABS: PLATELET ESTIMATE ADEQUATE
[2020-12-20 07:20] LABS: HYPOCHROMASIA 2+; POLYCHROMASIA Occasional
[2020-12-20 07:21] LABS: MACROCYTES Occasional
[2020-12-20 07:22] LABS: ANISOCYTOSIS 1+
--- NOTE | 2020-12-20 11:40 | CON ---
[address] [address] CONSULTATION Name: DM HERNADEZ Room: [address] IN M.R.#: [id number] Admission: 12/16/20 Attend Phys: Santos Mcnair Discharge: Date of : 62 Report #: [id number] THIS REPORT FOR: cc: Steve Medina MD, Anthony MD ~ Porfirio Pedraza MD DATE OF SERVICE: 12/18/2020 REQUESTING PHYSICIAN: Quang Muñoz MD INDICATION FOR CONSULTATION: Loculated pleural effusions. HISTORY OF PRESENT ILLNESS: A 60-year-old female, past medical history as mentioned below. We recently saw her in this hospital. During a recent admission earlier this month, the patient has had a pleural effusion on the right side. She does have coronary artery disease. She had cardiac stents placed last fall. The patient subsequently had been on Plavix. During the last hospitalization, she had a significant right-sided pleural effusion. The patient's baseline creatinine is normal. She is an active smoker and does appear to me that she has COPD. She also has a fairly narrow airway with an elevated body mass index between 34-36 and it does appear to me that she has previously undiagnosed obstructive sleep apnea. The patient had been on Plavix. She had thoracentesis performed during the last hospitalization. While she was on Plavix, there was 1260 mL of fluid removed. Per analysis it had a large amount of wbc's, but protein and LDH are low dose, so technically this will be a transudate. The patient already was anemic on admission. Note that her baseline creatinine is 11.8, it had already dropped to 7.9 with a further drop in hemoglobin after the thoracentesis to 5.8 and the pleural effusion in fact increased in size after the thoracentesis, we placed a chest tube. The discharge in the chest tube was partly serous and partly hemorrhagic. The patient was also seen by the ID service and was treated with antibiotics for 1 week which these were discontinued by the ID service. Also, note that the patient had a significant elevation in right heart pressures to 70. Her previous right heart pressures from 2019 were normal. Initially, we had to delay CTA chest because her creatinine was elevated when it normalized, we did do a CTA chest, there were no pulmonary emboli detected. Venous Dopplers were also negative. Subsequently, I did see her in my office, her creatinine had normalized and she did appear to have some pulmonary vascular congestion later on admission, so she was sent home on a small amount of diuretics. When I saw her, she was complaining of weakness, but only mild chest pain on the right side and in fact appear to be stable. Done lab work as well as a chest x-ray as an outpatient, [place] [address] CONSULTATION Name: DM HERNADEZ Room: [address] IN .R.#: [id number] Admission: 12/16/20 Attend Phys: Santos Mcnair Discharge: Date of : 62 Report #: [id number] which actually showed resolution of previously seen pulmonary vascular congestion and creatinine was now mildly elevated to 1.4 up from 1.0. The patient subsequently came to the Emergency Room presentation was with back pain as well as chest pain on the right side associated with respiration and coughing. Note that the patient had been off of Plavix. The troponin I at that time was noted to be elevated to 1.71. The patient was therefore admitted. She has been transfused and has not so far had another cardiac catheterization. At this point, the patient is on 2-3 liters nasal cannula. Her blood pressure is towards the lower end of normal range, but she remains hemodynamically stable. She is saturating in the high 90s. She still has a right-sided chest pain with respiration and coughing. She has a low-grade elevation in temperature to 37.5. She has had minor epistaxis. She has mild swelling of lower extremities. She has had a repeat echocardiogram performed, which shows a pulmonary artery systolic pressure is still elevated to 67. The patient has had significant disturbed sleep at night as well as sleepiness during the day. The patient answers to the negative for 12 questions for review of systems except as mentioned above. PAST MEDICAL HISTORY: Coronary artery disease, stents in fall, pulmonary artery pressures significantly elevated at 70 on recent echo as above, up from normal right heart pressures than in 2019, so far workup for thromboembolism is negative, loculated right-sided pleural effusion, COPD, endometriosis, ovarian cyst, diabetes, hypertension, hyperlipidemia, I also strongly suspect that she has significant obstructive sleep apnea, recent significant anemia. SOCIAL HISTORY: She has been an active smoker until recently 2-1/2 packs a day, several decades. No known history of heavy alcohol use or illegal drug use. CURRENT MEDICATIONS: List in [facility] reviewed. HOME MEDICATIONS: List also in [facility] reviewed. Also, see discussion above. She was on Plavix until last admission. FAMILY HISTORY: There is no known pertinent family history at this time. PHYSICAL EXAMINATION: GENERAL: She is alert, awake and oriented, does not appear to be in any distress at this time. VITAL SIGNS: Has a pulse of 78, blood pressure is on the lower side at 96/42. She appears to be well perfused, is saturating 98% on 2 liters oxygen via nasal cannula, respiratory rate is 16-17. She has a low-grade elevation in temperature to 37.5. Body mass index is 34.4, down from 36 last admission. [address] [address] CONSULTATION Name: DM HERNADEZ Room: [address] IN [facility].#: [id number] Admission: 12/16/20 Attend Phys: Santos Mcnair Discharge: Date of : 62 Report #: [id number] HEENT: Head is normocephalic and atraumatic. Pupils are equal and reactive. There is no throat erythema, narrow airway, Mallampati 4. NECK: Does not show raised JVP, asymmetry, mass or lymph nodes. CHEST: Symmetrical expansion on inspection and palpation, but there is tenderness towards the lateral aspect of the right side coming anteriorly some of the posterior aspect as well. Breath sounds are decreased at bilateral lung bases, particularly at the right lung base. HEART: Regular. There is no murmur. ABDOMEN: Soft and nontender. EXTREMITIES: Lower extremities show trace edema, no calf tenderness. SKIN: Dry and intact. NEUROLOGICAL: Moves all extremities bilaterally equally and spontaneously with no focal deficit identified. IMAGING: We did a CT chest again, it does show a loculated pleural effusion as well as some infiltrate and atelectasis at the right lung base, simple pleural effusion, small in size in the left side. LABORATORY DATA: The patient's lab work in [facility] is reviewed. ASSESSMENT/PLAN: 1. Loculated right-sided pleural effusion/pulmonary infiltrates. Note that she has had a small effusion on the left side as well and at this point, I feel that there is a component of fluid overload as well; however, I have difficulty explaining development of this right-sided pleural effusion based on fluid overload alone. The patient likely did have some injury to the intercostal artery component of hemothorax as well a result, but even before the first thoracentesis, the pleural effusion mainly appear to be on the right side. Therefore, likely has an additional etiology as well, which is likely infection, malignancy is not fully ruled out. . At this time, I would favor trying to drain this fluid out and then performing a repeat CT chest. The Interventional Radiology service may not be available this weekend, so I will see if by Sunday, I can discuss this with Dr. Washington note that she likely has intercostal artery injury during last thoracentesis. However, considering that she is now off of Plavix the risk of performing same procedure will be lower, it is possible that she will benefit from a pigtail in case with more conservative measures this fluid cannot be drained out, then she may need surgical intervention. I understand that Dr. Zavala cardiothoracic surgeon may come and see this patient on Sunday and has been consulted, I would perhaps however, would be cautious in administering TPA or Pulmozyme into the pleural effusion, considering previous bleeding. 2. Pulmonary infiltrates, not fully apparent if the etiology is infection; however, since the possibility is considered, I would go ahead [place] [address] CONSULTATION Name: DM HERNADEZ Room: [address] IN [facility].#: [id number] Admission: 12/16/20 Attend Phys: Santos Mcnair Discharge: Date of : 62 Report #: [id number] ceftriaxone to provide some anaerobic coverage. I ordered metronidazole as well. We will do a nasal swab for methicillin-resistant Staphylococcus aureus. 3. Chest pain with respiration/back pain. It is possible this is related to her pleural fluid. Regardless, there is elevation in troponin I and therefore likely the patient did have a small non-ST ID as well. Cardiology service is on the case. 4. Severe pulmonary hypertension, pulmonary artery systolic 70 on the last echo, still noted to be elevated on the echo now, previous pulmonary artery pressure was normal in 2019. So far workup for thromboembolism negative. We will repeat venous Dopplers. She likely has significant underlying chronic obstructive pulmonary disease. She likely also has significant obstructive sleep apnea, but this does appear to be out of proportion and will need further workup. 5. Congestive heart failure, acute chronic left ventricular ejection fraction 40-45%. She only has mild fluid overload, we will watch this, considering mild elevation in creatinine as well. 6. Acute renal insufficiency. Note that her baseline creatinine prior to these admissions was normal. 7. Acute blood loss anemia. She is on a PPI. I understand that when she is more stable, she will have scopes. 8. Coronary artery disease, status post stents/non ST myocardial infarction discussion above. 9. Chronic obstructive pulmonary disease. There was a question as to whether the patient had acute coronary syndrome and she is not in any obvious distress. I did not change to scheduled nebulized bronchodilators, but I will consider the soon. Hold off on steroids for now. 10. Obstructive sleep apnea, needs an outpatient sleep study. 11. History of diabetes. Thanks for this consultation. <ELECTRONICALLY SIGNED> By: Porfirio Pedraza MD 12/20/20 1140 1534 [id number] Pedraza MD /nt
[2020-12-20 12:15] VITALS: BP 142/61
[2020-12-20 16:35] VITALS: BP 114/44
[2020-12-20 21:00] VITALS: BP 136/57
[2020-12-20 23:39] VITALS: BP 119/50
[2020-12-21 04:19] VITALS: BP 123/54
[2020-12-21 04:41] LABS: CALCIUM 9.2 mg/dL (8.5-10.1); CREATININE 1.1 mg/dL (0.6-1.3); MAGNESIUM 1.9 mg/dL (1.8-2.4); POTASSIUM 3.7 mmol/L (3.5-5.1)
[2020-12-21 04:45] LABS: ABSOLUTE BASOPHILS 0.1 thou/uL (0.0-0.2); ABSOLUTE EOSINOPHILS 0.1 thou/uL (0.0-0.7); ABSOLUTE LYMPHOCYTES 0.6 thou/uL (0.8-5.3); ABSOLUTE MONOCYTES 0.5 thou/uL (0.0-1.2); ABSOLUTE NEUTROPHILS 5.5 thou/uL (1.6-8.1); EOSINOPHILS 1.1 %; HEMOGLOBIN 8.1 gm/dL (12.0-15.0); LYMPHOCYTES 9.6 %; MCH 26.6 pg (26.0-34.0); MCHC 32.5 g/dL (28.0-37.0); MCV 81.7 fL (80.0-100.0); MONOCYTES 6.8 %; MPV 7.6 fl. (7.2-11.1); NUCLEATED RBCS 0 /100WBC; PLATELET COUNT* 233 thou/uL (150-400); POLYS 81.5 %; RBC 3.06 mil/uL (4.20-5.00); RDW-CV 21.9 % (10.5-14.5); WBC 6.8 thou/uL (4.0-11.0)
[2020-12-21 06:05] LABS: ANISOCYTOSIS 2+; HYPOCHROMASIA 1+; PLATELET ESTIMATE ADEQUATE; POIKILOCYTOSIS 1+; POLYCHROMASIA 1+
[2020-12-21 08:00] VITALS: BP 122/56
[2020-12-21] MEDS ORDERED: PERCOCET PO (09:11)
[2020-12-21] MEDS ORDERED: MUPIROCIN22 GM TOP (09:11)
[2020-12-21] MEDS ORDERED: VANCO 1.251.25 GM/25 IVPB (09:11)
[2020-12-21] MEDS ORDERED: FLAGYL500 M1 PO (09:11)
[2020-12-21] MEDS ORDERED: ROCEPHIN 11 GM/1001 IV (09:11)
[2020-12-21] MEDS ORDERED: IPRAT-ALBUT 0.5-3 ML INH (09:11)
[2020-12-21 09:44] VITALS: BP 122/56
--- NOTE | 2020-12-26 08:24 | CON ---
[facility] [address] [place] [address] CONSULTATION Name: DM HERNADEZ Room: [address] IN M.R.#: [id number] Admission: 12/16/20 Attend Phys: Santos Mcnair Discharge: 12/21/20 Date of : 62 Report #: [id number] THIS REPORT FOR: cc: Steve Medina MD, Anthony MD ~ Ryan Zavala MD DATE OF SERVICE: 12/20/2020 HISTORY OF PRESENT ILLNESS: The patient is a 60-year-old seen for the hospitalist. I had seen the patient 2 or 3 weeks ago for a right pleural effusion. At that time, a chest tube was placed and the pleural effusion had largely resolved. The original cause of the effusion was not clear, but thoracentesis was done and approximately a liter of fluid was removed, but there was more fluid afterwards than before. This may have been due to trauma and/or the fact that the patient was on Plavix. In any event, chest tube was placed and the effusion was drained. The patient was treated for anemia. The patient was discharged and did well for a few days at home, but had recrudescence of shortness of breath and was admitted to the Emergency Department on the . Chest x-rays and CT scan shows loculated pleural effusions with compressed lower lobe. The patient has persistent shortness of breath. Nothing yet has been done to alleviate the effusion. We also note that the patient complains of left leg swelling. A vein scan was done yesterday and this shows no evidence of lower extremity deep vein thrombosis. The patient denies having had fever at home and the patient denies sputum production. PAST MEDICAL HISTORY: Significant for coronary artery disease. The patient has had 7 stents total, the most recent in 06/2020. The patient also has a history of diabetes, hypertension and heart failure and COPD. SOCIAL HISTORY: The patient lives in [place]. She is and is a daily smoker. MEDICATIONS: Include albuterol, bumetanide, iron. Prednisone was stopped. Other medication includes losartan, gabapentin, B12, glimepiride, sitagliptin, insulin, Trelegy Ellipta inhaler, metoprolol, omeprazole, alprazolam, Plavix, nicotine patch, buspirone, rosuvastatin, [place] [address] CONSULTATION Name: DM HERNADEZ Room: [address]#: [id number] Admission: 12/16/20 Attend Phys: Santos Mcnair Discharge: 12/21/20 Date of : 62 Report #: [id number] ALLERGIES: THE PATIENT CLAIMS TO BE ALLERGIC TO IBUPROFEN. REVIEW OF SYSTEMS: GENERAL: As mentioned, the patient has generalized weakness, but denies fever. EYES: No change in vision. HENT: No headache. No sore throat. No nasal discharge. RESPIRATORY: Shortness of breath. No sputum production. CARDIAC: Denies chest pain, palpitation to me. GASTROINTESTINAL: Denies nausea, vomiting, blood. GENITOURINARY: Denies urgency, frequency, blood. MUSCULOSKELETAL: Denies bone or joint pain. SKIN: Denies rash or infection. ENDOCRINE: Denies goiter, tremor. HEMATOLOGIC: Is anemic, denies bruisability. NEUROLOGIC: Denies motor or sensory loss. PHYSICAL EXAMINATION: CONSTITUTIONAL: The patient is sitting in bed with somewhat depressed affect. VITAL SIGNS: Temperature today 36.6, heart rate 91, blood pressure 140/64, respiratory rate 18, O2 sat 92 on 2 liters. HEENT: No scleral icterus, no arcus. NECK: Grade 1 right cervical bruit. No bruit heard on the left. CHEST: Significantly decreased breath sounds on the right side throughout posteriorly. HEART: Rhythm is regular. No murmurs heard. ABDOMEN: Protuberant. No mass, no tenderness. EXTREMITIES: Left lower extremity is swollen relative to the right, 2+ dorsalis pedis pulses are palpable bilaterally. SKIN: No rash or infection. NEUROLOGIC: No motor or sensory dysfunction. MUSCULOSKELETAL: No bone or joint asymmetry or deformity. I discussed the significance of the findings with the patient and her . I had reviewed the x-rays earlier with the invasive radiologist. Radiology is hesitant to repeat a drain placement and hesitant to try thrombolytic pleural treatment. As such, I have recommended that the patient has bronchoscopy, right video-assisted thoracoscopy, thoracotomy and decortication if appropriate. The risks and details of this were discussed. Options and alternatives were reviewed. Risks include but are not limited to bleeding, infection, anesthesia risks, and of course recurrence. The patient understands that in order to get better this fluid collection will need to be drained. I have advised the patient that this surgery would be done at [facility] and the patient and understand and agree with this approach. As such, we will make arrangements for transfer. [address] [address] CONSULTATION Name: DM HERNADEZ Room: [address] IN M.R.#: [id number] Admission: 12/16/20 Attend Phys: Santos Mcnair Discharge: 12/21/20 Date of : 62 Report #: [id number] Thank you for the consult. <ELECTRONICALLY SIGNED> By: Ryan Zavala MD 12/26/20 0824 1139 1918Jokang Zavala MD /nt
[2020-12-30] MEDS ORDERED: COZAAR 25 MG TA25 M2 PO (13:32)
[2020-12-30] MEDS ORDERED: METOPROLOL SUCC50 MG PO (13:32)
[2020-12-30] MEDS ORDERED: SPIRONOLACTONE25 M1 PO (13:33)
[2020-12-30] MEDS ORDERED: LASIX 40 MG TAB40 M1 PO (13:33)
[2020-12-30] MEDS ORDERED: LANTUS SUBQ (13:35)
[2020-12-30] MEDS ORDERED: LIDOPATCH1 EACH TRANSDERM (13:36)
[2020-12-30] MEDS ORDERED: VANCO1GM IV (13:39)
== END 2020-12-21 15:20 | disposition short-term general hospital (02) | DRG 871 ==
LOC: M.ERS 13:11 → M.ICU 14:27 → M.TBA-ER 14:27 → M.ICU 17:54 → M.2W 12-17 17:26
PROVIDERS: Emergency Medicine Emergency Medical Services; Internal Medicine; Internal Medicine Critical Care Medicine; Registered Nurse; ADMIT Internal Medicine; ATTEND Internal Medicine
DX: A41.9 Sepsis, unspecified organism (principal); E43 Unspecified severe protein-calorie malnutrition; I21.A1 Myocardial infarction type 2; N17.0 Acute kidney failure with tubular necrosis; J18.9 Pneumonia, unspecified organism; I13.0 Hypertensive heart and chronic kidney disease with heart failure and stage 1 through stage 4 chronic kidney disease, or unspecified chronic kidney disease; D62 Acute posthemorrhagic anemia; J91.8 Pleural effusion in other conditions classified elsewhere; I50.9 Heart failure, unspecified; I25.10 Atherosclerotic heart disease of native coronary artery without angina pectoris; E78.5 Hyperlipidemia, unspecified; J44.9 Chronic obstructive pulmonary disease, unspecified; N80.9 Endometriosis, unspecified; F17.210 Nicotine dependence, cigarettes, uncomplicated; I25.5 Ischemic cardiomyopathy; E66.9 Obesity, unspecified; K21.9 Gastro-esophageal reflux disease without esophagitis; N18.30 Chronic kidney disease, stage 3 unspecified; G47.33 Obstructive sleep apnea (adult) (pediatric); E11.9 Type 2 diabetes mellitus without complications; I27.20 Pulmonary hypertension, unspecified; Z20.822 Contact with and (suspected) exposure to COVID-19; I25.2 Old myocardial infarction; Z79.4 Long term (current) use of insulin; Z68.36 Body mass index [BMI] 36.0-36.9, adult; Z79.899 Other long term (current) drug therapy; Z95.5 Presence of coronary angioplasty implant and graft; Z90.49 Acquired absence of other specified parts of digestive tract; Z79.01 Long term (current) use of anticoagulants; Z88.8 Allergy status to other drugs, medicaments and biological substances; Z79.82 Long term (current) use of aspirin

== ENCOUNTER 2021-01-10 16:10 | Inpatient (IN) | payer OTHER ==
[~2021-01-10] VITALS: Ht 165.1 cm; Wt 90.3 kg
[~2021-01-10 16:10] MED LIST changes: +ALBUTEROL2.5 MG/31 INH; +CARVEDILOL3.125 MG PO; +COLACE 100 MG100 MG PO; +COZAAR 25 MG TA25 M2 PO; +FLAGYL500 M1 PO; +FUROSEMIDE20 MG/2 ML IV PUSH; +HUMALOG100 UNIT/1 SUBQ; +IPRAT-ALBUT 0.5-3 ML INH; +LANTUS SUBQ; +LASIX 40 MG TAB40 M1 PO; +LIDOPATCH1 EACH TRANSDERM; +LIPITOR40 MG PO; +METOPROLOL SUCC50 MG PO; +MIRALAX17 GM PO; +MUPIROCIN22 GM TOP; +NYSTATIN100000 UNI PO; +PROTONIX 20 MG20 M1 PO; +PULMICORT0.5 MG/21 INH; +ROCEPHIN 11 GM/1001 IV; +SPIRONOLACTONE25 M1 PO; +TRAZODONE HCL50 MG PO; +VANCO 1.251.25 GM/25 IVPB; +VANCO1GM IV
[2021-01-10 21:00] VITALS: BP 114/76
[2021-01-11 05:02] LABS: HEMATOCRIT 25.7 % (37.0-47.0); HEMOGLOBIN 8.1 gm/dL (12.0-15.0); MCHC 31.6 g/dL (28.0-37.0); MCV 91.5 fL (80.0-100.0); MPV 7.5 fl. (7.2-11.1); RBC 2.81 mil/uL (4.20-5.00); RDW-CV 23.8 % (10.5-14.5); WBC 9.9 thou/uL (4.0-11.0)
[2021-01-11 05:08] LABS: CALCIUM 9.1 mg/dL (8.5-10.1); CREATININE 1.5 mg/dL (0.6-1.3); POTASSIUM 3.6 mmol/L (3.5-5.1)
[2021-01-11 08:30] VITALS: BP 108/67
[2021-01-11 21:00] VITALS: BP 110/64
[2021-01-12 04:30] LABS: HEMATOCRIT 25.4 % (37.0-47.0); HEMOGLOBIN 8.1 gm/dL (12.0-15.0); MCH 28.9 pg (26.0-34.0); MCHC 31.8 g/dL (28.0-37.0); MPV 7.7 fl. (7.2-11.1); RBC 2.8 mil/uL (4.20-5.00); RDW-CV 24.7 % (10.5-14.5); WBC 7.3 thou/uL (4.0-11.0)
[2021-01-12 04:40] LABS: CALCIUM 9.2 mg/dL (8.5-10.1); CREATININE 1.6 mg/dL (0.6-1.3); POTASSIUM 4.2 mmol/L (3.5-5.1)
[2021-01-12 08:27] VITALS: BP 112/58
[2021-01-12 20:05] VITALS: BP 117/62
[2021-01-13 07:48] VITALS: BP 111/56
[2021-01-13 09:38] LABS: HEMATOCRIT 25.2 % (37.0-47.0); HEMOGLOBIN 7.9 gm/dL (12.0-15.0); MCH 28.7 pg (26.0-34.0); MCHC 31.3 g/dL (28.0-37.0); MCV 91.6 fL (80.0-100.0); MPV 7.7 fl. (7.2-11.1); RBC 2.75 mil/uL (4.20-5.00); RDW-CV 25.6 % (10.5-14.5); WBC 10.3 thou/uL (4.0-11.0)
[2021-01-13 09:49] LABS: CALCIUM 9.3 mg/dL (8.5-10.1); CREATININE 1.4 mg/dL (0.6-1.3); MAGNESIUM 2.7 mg/dL (1.8-2.4); POTASSIUM 3.9 mmol/L (3.5-5.1)
[2021-01-13 09:50] LABS: BE 5.5 mmol/L (-2 to +3); PO2 62.3 mmHg (75.0-100.0); pH 7.492 (7.340-7.450)
[2021-01-13 19:50] VITALS: BP 101/54
[2021-01-14 08:16] VITALS: BP 111/55
[2021-01-14 20:10] VITALS: BP 112/60
[2021-01-15 04:50] LABS: HEMATOCRIT 24.2 % (37.0-47.0); HEMOGLOBIN 7.7 gm/dL (12.0-15.0); MCH 28.8 pg (26.0-34.0); MCHC 31.7 g/dL (28.0-37.0); MCV 90.9 fL (80.0-100.0); MPV 7.8 fl. (7.2-11.1); RBC 2.66 mil/uL (4.20-5.00); RDW-CV 25.7 % (10.5-14.5); WBC 9.4 thou/uL (4.0-11.0)
[2021-01-15 08:28] VITALS: BP 99/52
[2021-01-15 19:00] VITALS: BP 111/59
[2021-01-16 07:56] VITALS: BP 104/56
[2021-01-16 20:35] VITALS: BP 100/52
[2021-01-17 05:07] LABS: CALCIUM 8.8 mg/dL (8.5-10.1); CREATININE 1.4 mg/dL (0.6-1.3); MAGNESIUM 2.3 mg/dL (1.8-2.4); POTASSIUM 3.6 mmol/L (3.5-5.1)
[2021-01-17 05:20] LABS: HEMATOCRIT 21.9 % (37.0-47.0); MCHC 31.3 g/dL (28.0-37.0); MCV 92.6 fL (80.0-100.0); MPV 7.8 fl. (7.2-11.1); RBC 2.37 mil/uL (4.20-5.00); RDW-CV 25.4 % (10.5-14.5); WBC 8.1 thou/uL (4.0-11.0)
[2021-01-17 05:24] LABS: HEMOGLOBIN 6.9 gm/dL (12.0-15.0)
[2021-01-17 08:00] VITALS: BP 114/46
[2021-01-17 10:01] VITALS: BP 100/50; BP 111/50; BP 91/50; BP 97/54; BP 99/53
[2021-01-17 13:00] LABS: ALBUMIN 2.8 g/dL (3.4-5.0); DIRECT BILIRUBIN 0.3 mg/dL (<0.1-0.3); TOTAL BILIRUBIN 0.9 mg/dL (<0.1-1.0); TOTAL PROTEIN 6.6 g/dL (6.4-8.2)
[2021-01-17 13:24] LABS: BE 6.9 mmol/L (-2 to +3); PCO2 39.7 mmHg (35.0-45.0); pH 7.504 (7.340-7.450)
[2021-01-17 13:26] LABS: PO2 59.1 mmHg (75.0-100.0)
[2021-01-17 15:00] LABS: HEMATOCRIT 25.3 % (37.0-47.0); HEMOGLOBIN 8.1 gm/dL (12.0-15.0)
[2021-01-17 19:00] VITALS: BP 105/58
[2021-01-18 05:07] LABS: HEMATOCRIT 25.2 % (37.0-47.0); HEMOGLOBIN 8.2 gm/dL (12.0-15.0); MCH 29.3 pg (26.0-34.0); MCHC 32.7 g/dL (28.0-37.0); MCV 89.7 fL (80.0-100.0); MPV 7.9 fl. (7.2-11.1); NUCLEATED RBCS 0 /100WBC; PLATELET COUNT* 188 thou/uL (150-400); RBC 2.81 mil/uL (4.20-5.00); RDW-CV 22.9 % (10.5-14.5); WBC 9.1 thou/uL (4.0-11.0)
[2021-01-18 05:15] LABS: CALCIUM 8.8 mg/dL (8.5-10.1); CREATININE 1.4 mg/dL (0.6-1.3); MAGNESIUM 2.1 mg/dL (1.8-2.4); POTASSIUM 3.6 mmol/L (3.5-5.1)
[2021-01-18 06:53] LABS: ABSOLUTE LYMPHOCYTES 0.6 thou/uL (0.8-5.3); ABSOLUTE MONOCYTES 0.3 thou/uL (0.0-1.2); ABSOLUTE NEUTROPHILS 8.2 thou/uL (1.6-8.1); ANISOCYTOSIS 1+; ATYPICAL LYMPHS 2 %
[2021-01-18 08:10] VITALS: BP 110/53
[2021-01-18 19:00] VITALS: BP 105/49
[2021-01-19 05:13] LABS: CALCIUM 9.4 mg/dL (8.5-10.1); CREATININE 1.4 mg/dL (0.6-1.3); POTASSIUM 3.6 mmol/L (3.5-5.1)
[2021-01-19 05:16] LABS: HEMATOCRIT 24.7 % (37.0-47.0); MCH 29.5 pg (26.0-34.0); MCHC 32.5 g/dL (28.0-37.0); MCV 90.6 fL (80.0-100.0); MPV 7.9 fl. (7.2-11.1); RBC 2.72 mil/uL (4.20-5.00); RDW-CV 22.8 % (10.5-14.5); WBC 7.7 thou/uL (4.0-11.0)
[2021-01-19 07:59] VITALS: BP 109/56
[2021-01-19 19:00] VITALS: BP 99/47
[2021-01-20 07:01] LABS: ABSOLUTE LYMPHOCYTES 0.7 thou/uL (0.8-5.3); ABSOLUTE MONOCYTES 0.3 thou/uL (0.0-1.2); ABSOLUTE NEUTROPHILS 6.2 thou/uL (1.6-8.1); BASOPHILS 0.2 %; EOSINOPHILS 0.6 %; HEMATOCRIT 24.2 % (37.0-47.0); HEMOGLOBIN 7.9 gm/dL (12.0-15.0); LYMPHOCYTES 10.2 %; MCH 29.4 pg (26.0-34.0); MCHC 32.5 g/dL (28.0-37.0); MCV 90.5 fL (80.0-100.0); MONOCYTES 3.7 %; MPV 7.8 fl. (7.2-11.1); NUCLEATED RBCS 0 /100WBC; PLATELET COUNT* 165 thou/uL (150-400); POLYS 85.3 %; RBC 2.68 mil/uL (4.20-5.00); RDW-CV 22.8 % (10.5-14.5); WBC 7.3 thou/uL (4.0-11.0)
[2021-01-20 07:16] LABS: ALBUMIN 2.5 g/dL (3.4-5.0); CALCIUM 8.3 mg/dL (8.5-10.1); CREATININE 1.4 mg/dL (0.6-1.3); PHOSPHORUS* 2.9 mg/dL (2.5-4.9); POTASSIUM 3.6 mmol/L (3.5-5.1); TOTAL BILIRUBIN 0.9 mg/dL (<0.1-1.0); TOTAL PROTEIN 6.2 g/dL (6.4-8.2)
[2021-01-20 07:50] VITALS: BP 107/45
[2021-01-20 13:39] VITALS: BP 100/47
[2021-01-20 20:13] VITALS: BP 100/57
[2021-01-21 07:30] VITALS: BP 108/48
[2021-01-21 07:55] LABS: CALCIUM 8.3 mg/dL (8.5-10.1); CREATININE 1.5 mg/dL (0.6-1.3); POTASSIUM 3.6 mmol/L (3.5-5.1)
[2021-01-21 20:05] VITALS: BP 100/49
[2021-01-22 04:59] LABS: CALCIUM 8.5 mg/dL (8.5-10.1); CREATININE 1.4 mg/dL (0.6-1.3); POTASSIUM 3.6 mmol/L (3.5-5.1)
[2021-01-22 08:00] VITALS: BP 102/48
[2021-01-22 20:18] VITALS: BP 99/47
[2021-01-23 04:09] LABS: CALCIUM 8.6 mg/dL (8.5-10.1); CREATININE 1.4 mg/dL (0.6-1.3); POTASSIUM 3.9 mmol/L (3.5-5.1)
[2021-01-23 08:00] VITALS: BP 116/59
[2021-01-23 19:57] VITALS: BP 102/49
[2021-01-24 04:42] LABS: ALBUMIN 2.6 g/dL (3.4-5.0); CALCIUM 9.5 mg/dL (8.5-10.1); CREATININE 1.4 mg/dL (0.6-1.3); POTASSIUM 4.4 mmol/L (3.5-5.1); TOTAL PROTEIN 6.7 g/dL (6.4-8.2)
[2021-01-24 09:00] VITALS: BP 107/56
[2021-01-24 12:58] LABS: HEMATOCRIT 24.7 % (37.0-47.0); HEMOGLOBIN 7.6 gm/dL (12.0-15.0); MCH 29.2 pg (26.0-34.0); MCHC 30.9 g/dL (28.0-37.0); MCV 94.5 fL (80.0-100.0); MPV 8.5 fl. (7.2-11.1); RBC 2.62 mil/uL (4.20-5.00); RDW-CV 23.2 % (10.5-14.5); WBC 4.8 thou/uL (4.0-11.0)
[2021-01-24 19:00] VITALS: BP 93/47
[2021-01-25 08:45] VITALS: BP 114/52
[2021-01-25 19:00] VITALS: BP 103/52
[2021-01-26 06:22] LABS: ABSOLUTE LYMPHOCYTES 0.6 thou/uL (0.8-5.3); ABSOLUTE MONOCYTES 0.2 thou/uL (0.0-1.2); ABSOLUTE NEUTROPHILS 2.5 thou/uL (1.6-8.1); BASOPHILS 0.7 %; EOSINOPHILS 1.2 %; HEMATOCRIT 21.9 % (37.0-47.0); LYMPHOCYTES 18.8 %; MCH 29.2 pg (26.0-34.0); MCHC 31.7 g/dL (28.0-37.0); MCV 92.2 fL (80.0-100.0); MONOCYTES 5.6 %; MPV 7.9 fl. (7.2-11.1); NUCLEATED RBCS 0 /100WBC; PLATELET COUNT* 89 thou/uL (150-400); POLYS 73.7 %; RBC 2.38 mil/uL (4.20-5.00); RDW-CV 22.2 % (10.5-14.5); WBC 3.4 thou/uL (4.0-11.0)
[2021-01-26 06:31] LABS: CALCIUM 8.7 mg/dL (8.5-10.1); CREATININE 1.3 mg/dL (0.6-1.3); MAGNESIUM 1.8 mg/dL (1.8-2.4); POTASSIUM 3.8 mmol/L (3.5-5.1)
[2021-01-26 08:00] VITALS: BP 107/51
[2021-01-26 20:08] VITALS: BP 101/46
[2021-01-27 04:23] LABS: ABSOLUTE EOSINOPHILS 0.1 thou/uL (0.0-0.7); ABSOLUTE LYMPHOCYTES 0.6 thou/uL (0.8-5.3); ABSOLUTE MONOCYTES 0.2 thou/uL (0.0-1.2); ABSOLUTE NEUTROPHILS 2.1 thou/uL (1.6-8.1); BASOPHILS 0.7 %; EOSINOPHILS 1.7 %; HEMATOCRIT 21.6 % (37.0-47.0); MCH 29.1 pg (26.0-34.0); MCHC 31.5 g/dL (28.0-37.0); MCV 92.5 fL (80.0-100.0); MONOCYTES 6.1 %; NUCLEATED RBCS 0 /100WBC; PLATELET COUNT* 93 thou/uL (150-400); POLYS 70.5 %; RBC 2.34 mil/uL (4.20-5.00); RDW-CV 22.9 % (10.5-14.5)
[2021-01-27 04:48] LABS: CALCIUM 8.5 mg/dL (8.5-10.1); CREATININE 1.2 mg/dL (0.6-1.3); MAGNESIUM 1.8 mg/dL (1.8-2.4); POTASSIUM 3.9 mmol/L (3.5-5.1)
[2021-01-27 05:41] LABS: HEMOGLOBIN 6.8 gm/dL (12.0-15.0)
[2021-01-27 07:28] LABS: HEMATOCRIT 21.6 % (37.0-47.0)
[2021-01-27 07:29] LABS: HEMOGLOBIN 6.8 gm/dL (12.0-15.0)
[2021-01-27 08:19] VITALS: BP 103/48
[2021-01-27] MEDS ORDERED: PAXIL20 MG PO (11:25)
== END 2021-01-27 09:27 | disposition short-term general hospital (02) | DRG 947 ==
LOC: M.REH 16:10
PROVIDERS: Family Medicine; Internal Medicine; Internal Medicine Critical Care Medicine; ADMIT Physical Medicine & Rehabilitation; ATTEND Physical Medicine & Rehabilitation
PROC: 30233N1 Transfusion of Nonautologous Red Blood Cells into Peripheral Vein, Percutaneous Approach (ICD-10-PCS; principal; 2021-01-17)
DX: R53.81 Other malaise (principal); J96.21 Acute and chronic respiratory failure with hypoxia; J18.9 Pneumonia, unspecified organism; I50.23 Acute on chronic systolic (congestive) heart failure; N17.0 Acute kidney failure with tubular necrosis; E44.0 Moderate protein-calorie malnutrition; D62 Acute posthemorrhagic anemia; I13.0 Hypertensive heart and chronic kidney disease with heart failure and stage 1 through stage 4 chronic kidney disease, or unspecified chronic kidney disease; E87.3 Alkalosis; D61.818 Other pancytopenia; B37.9 Candidiasis, unspecified; R91.8 Other nonspecific abnormal finding of lung field; I27.20 Pulmonary hypertension, unspecified; G47.33 Obstructive sleep apnea (adult) (pediatric); R68.2 Dry mouth, unspecified; J43.9 Emphysema, unspecified; N18.9 Chronic kidney disease, unspecified; E11.42 Type 2 diabetes mellitus with diabetic polyneuropathy; I25.10 Atherosclerotic heart disease of native coronary artery without angina pectoris; E11.22 Type 2 diabetes mellitus with diabetic chronic kidney disease; M54.9 Dorsalgia, unspecified; E78.5 Hyperlipidemia, unspecified; G89.29 Other chronic pain; F41.9 Anxiety disorder, unspecified; Z95.5 Presence of coronary angioplasty implant and graft; Z68.33 Body mass index [BMI] 33.0-33.9, adult; Z88.6 Allergy status to analgesic agent; Z87.891 Personal history of nicotine dependence; I25.2 Old myocardial infarction; Z20.822 Contact with and (suspected) exposure to COVID-19

== ENCOUNTER 2021-01-27 08:27 | Inpatient (IN) | payer OTHER ==
[~2021-01-27] VITALS: Ht 165.1 cm; Wt 93.4 kg
--- NOTE | ~2021-01-27 | PROC ---
[address] [address] PROCEDURE REPORT Name: DM HERNADEZ Room: [address] IN .R.#: [id number] Admission: 01/27/21 Attend Phys: Tracy Johnson MD Discharge: Date of : 62 Report #: [id number] THIS REPORT FOR: cc: Steve Medina MD, Anthony MD [facility],Medical Records Staff ~ For GI report, please see the Provation report in [employer] 7 content. By: [id number] Records Staff SITA /SOLE
--- NOTE | ~2021-01-27 | PROC ---
[address] [address] PROCEDURE REPORT Name: DM HERNADEZ Room: [address] IN .R.#: [id number] Admission: 01/27/21 Attend Phys: Tracy Johnson MD Discharge: Date of : 62 Report #: [id number] THIS REPORT FOR: cc: Steve Medina MD, Anthony MD [facility],Medical Records Staff ~ For GI report, please see the Provation report in [employer] content. By: [id number] Records Staff SITA /SOLE
[2021-01-27 08:35] VITALS: BP 101/50
[2021-01-27 10:46] VITALS: BP 103/48; BP 103/53
[2021-01-27] MEDS ORDERED: PAXIL20 MG PO (11:25)
[2021-01-27 12:10] VITALS: BP 103/53
[2021-01-27 15:05] LABS: HEMATOCRIT 25.9 % (37.0-47.0); HEMOGLOBIN 8.3 gm/dL (12.0-15.0)
[2021-01-27 16:00] VITALS: BP 116/56
[2021-01-27 16:12] LABS: ABSOLUTE LYMPHOCYTES 0.5 thou/uL (0.8-5.3); ABSOLUTE MONOCYTES 0.2 thou/uL (0.0-1.2); ABSOLUTE NEUTROPHILS 2.3 thou/uL (1.6-8.1); BASOPHILS 0.7 %; EOSINOPHILS 0.9 %; HEMATOCRIT 24.9 % (37.0-47.0); HEMOGLOBIN 7.9 gm/dL (12.0-15.0); LYMPHOCYTES 16.5 %; MCHC 31.9 g/dL (28.0-37.0); MPV 7.7 fl. (7.2-11.1); NUCLEATED RBCS 1 /100WBC; PLATELET COUNT* 92 thou/uL (150-400); POLYS 75.9 %; RBC 2.73 mil/uL (4.20-5.00); RDW-CV 20.7 % (10.5-14.5); WBC 3.1 thou/uL (4.0-11.0)
[2021-01-27 16:30] LABS: CALCIUM 8.9 mg/dL (8.5-10.1); CREATININE 1.2 mg/dL (0.6-1.3); MAGNESIUM 1.9 mg/dL (1.8-2.4); POTASSIUM 3.7 mmol/L (3.5-5.1)
[2021-01-27 18:30] LABS: ANISOCYTOSIS 2+; HYPOCHROMASIA 2+; PLATELET ESTIMATE DECREASED
[2021-01-27 18:31] LABS: POLYCHROMASIA Occasional
[2021-01-27 18:32] LABS: MICROCYTES Occasional
[2021-01-27 20:00] VITALS: BP 96/50
[2021-01-28] VITALS (7 sets, daily range): BP systolic 91–108; BP diastolic 43–72
[2021-01-28 04:37] LABS: ABSOLUTE EOSINOPHILS 0.1 thou/uL (0.0-0.7); ABSOLUTE LYMPHOCYTES 0.7 thou/uL (0.8-5.3); ABSOLUTE MONOCYTES 0.2 thou/uL (0.0-1.2); ABSOLUTE NEUTROPHILS 2.1 thou/uL (1.6-8.1); BASOPHILS 0.6 %; HEMATOCRIT 24.8 % (37.0-47.0); HEMOGLOBIN 7.9 gm/dL (12.0-15.0); MCHC 31.8 g/dL (28.0-37.0); MONOCYTES 6.8 %; NUCLEATED RBCS 0 /100WBC; PLATELET COUNT* 97 thou/uL (150-400); POLYS 68.6 %; RBC 2.72 mil/uL (4.20-5.00); RDW-CV 20.8 % (10.5-14.5); WBC 3.1 thou/uL (4.0-11.0)
[2021-01-28 05:02] LABS: ALBUMIN 2.3 g/dL (3.4-5.0); CALCIUM 8.8 mg/dL (8.5-10.1); CREATININE 1.3 mg/dL (0.6-1.3); MAGNESIUM 1.8 mg/dL (1.8-2.4); PHOSPHORUS* 3.4 mg/dL (2.5-4.9); POTASSIUM 4.3 mmol/L (3.5-5.1); TOTAL PROTEIN 6.5 g/dL (6.4-8.2)
[2021-01-29 04:21] LABS: ABSOLUTE EOSINOPHILS 0.1 thou/uL (0.0-0.7); ABSOLUTE LYMPHOCYTES 0.7 thou/uL (0.8-5.3); ABSOLUTE MONOCYTES 0.2 thou/uL (0.0-1.2); BASOPHILS 0.8 %; EOSINOPHILS 2.1 %; HEMATOCRIT 25.1 % (37.0-47.0); HEMOGLOBIN 7.9 gm/dL (12.0-15.0); MCH 28.8 pg (26.0-34.0); MCHC 31.4 g/dL (28.0-37.0); MCV 91.5 fL (80.0-100.0); MONOCYTES 7.3 %; MPV 8.3 fl. (7.2-11.1); NUCLEATED RBCS 0 /100WBC; PLATELET COUNT* 96 thou/uL (150-400); POLYS 66.8 %; RBC 2.75 mil/uL (4.20-5.00); RDW-CV 20.9 % (10.5-14.5)
[2021-01-29 04:30] VITALS: BP 107/54
[2021-01-29 04:35] LABS: ALBUMIN 2.1 g/dL (3.4-5.0); CALCIUM 9.6 mg/dL (8.5-10.1); CREATININE 1.2 mg/dL (0.6-1.3); MAGNESIUM 1.8 mg/dL (1.8-2.4); POTASSIUM 3.7 mmol/L (3.5-5.1); TOTAL PROTEIN 6.4 g/dL (6.4-8.2)
[2021-01-29 06:01] LABS: HYPOCHROMASIA 2+; MACROCYTES Occasional; MICROCYTES 1+; PLATELET ESTIMATE DECREASED
[2021-01-29 06:02] LABS: ANISOCYTOSIS 1+
[2021-01-29 08:00] VITALS: BP 113/545
--- NOTE | 2021-01-29 10:35 | CON ---
[address] [address] CONSULTATION Name: DM HERNADEZ Room: [address] IN M.R.#: [id number] Admission: 01/27/21 Attend Phys: Tracy Johnson MD Discharge: Date of : 62 Report #: [id number] THIS REPORT FOR: cc: Steve Medina MD, Anthony MD Blick,Juan Manuel Rousseau MD [facility] ~ DATE OF SERVICE: 01/28/2021 CARDIOLOGY CONSULTATION HISTORY OF PRESENT ILLNESS: The patient is a 60-year-old white female who I was asked to see in the hospital today because of her history of coronary artery disease. The patient has had multiple stents in the past. Apparently, her first stent was at [place] in 2011. She has had a total of 7 stents since that time. Her last stent was placed last June by Dr. Barajas. She apparently had chronic occlusion of the LAD. The circumflex had a 90% stenosis. There was no significant stenosis in the right coronary artery. Ejection fraction is 45%. She then had a stent placed in the circumflex artery. She was admitted to [place] in November with shortness of breath. She was found to be anemic and had a pleural effusion. She underwent thoracentesis. She had borderline elevation of troponin. She was transferred to [facility] and Dr. Zavala performed a video-assisted thoracostomy with evacuation of bloody effusion. She developed fluid retention and was diuresed. She eventually was sent to [facility], 2 weeks ago. There she was noted to be anemic. She was transferred to a monitored bed yesterday and transfused. Today, she underwent EGD and is found to have gastritis. She now is in need of a colonoscopy. She denies recent chest pain, increased shortness of breath, edema, palpitations or syncope. She does complain of having no energy. She has had no bleeding. PAST MEDICAL HISTORY: She has had cholecystectomy, tonsillectomy, hypertension, diabetes, hyperlipidemia. MEDICATIONS: Previous medications included nebulized treatments, Xanax, aspirin, Plavix, Lasix, Neurontin, Amaryl, insulin, losartan, metoprolol, omeprazole, Crestor, Januvia, spironolactone. ALLERGIES: SHE HAS A PREVIOUS INTOLERANCE TO IBUPROFEN. FAMILY HISTORY: Positive for heart disease. SOCIAL HISTORY: She is . She and her live in [place]. She smokes half pack of cigarettes a day[place] [address] CONSULTATION Name: DM HERNADEZ Room: [address]#: [id number] Admission: 01/27/21 Attend Phys: Tracy Johnson MD Discharge: Date of : 62 Report #: [id number] REVIEW OF SYSTEMS: She has a history of sleep apnea and has oxygen at home. No history of asthma, although she does use inhaler. No history of liver disease or kidney disease. She has had anemia. She had a skin cancer removed in the past. No psychiatric illness. PHYSICAL EXAMINATION: GENERAL: Revealed an elderly female lying in bed. She appeared in no distress. VITAL SIGNS: She had a blood pressure of 110/68, pulse is 80, she is afebrile. HEENT: She is anicteric. Conjunctivae are pale. Mucous membranes are moist. NECK: Veins do not appear distended. No carotid bruits. CHEST: Clear to auscultation. CARDIOVASCULAR: Regular rate and rhythm. No murmurs. ABDOMEN: Obese. EXTREMITIES: Had trace edema. SKIN: Cool and dry. NEUROLOGIC: Nonfocal. RADIOLOGICAL DATA: Her ECG shows a sinus rhythm, nonspecific T-wave changes. Her workup; she had an echocardiogram done in November while here at [place] that showed ejection fraction of 40%, biatrial enlargement, aortic sclerosis, moderate pulmonary hypertension. The patient had a chest x-ray performed this morning that showed cardiomegaly, some atelectasis, small effusions. LABORATORY WORK: Sodium 142, potassium 4.3, BUN 24, creatinine 1.3. Liver function studies were normal. Her white blood cell count 3.1, hemoglobin 7.9, platelet count 97,000. IMPRESSION AND RECOMMENDATIONS: 1. Coronary artery disease. Previous stent. I would consider an aspirin a day. 2. Cardiomyopathy. The patient has been on a beta rubi and ARB. Recommend Lasix as needed. 3. Obesity. 4. Chronic pleural effusion. 5. Anemia. No obvious bleeding. The patient appears to have no cardiac contraindication colonoscopy. <ELECTRONICALLY SIGNED> By: Juan Manuel Ospina MD, [facility] 01/29/21 1035 1513 [id number] Ospina MD, FAC /nt
[2021-01-29 13:31] VITALS: BP 100/44
[2021-01-29 16:00] VITALS: BP 154/76
[2021-01-29 21:04] VITALS: BP 108/51
[2021-01-30] VITALS: BP 106/44
[2021-01-30 04:00] VITALS: BP 120/54
[2021-01-30 05:12] LABS: ALBUMIN 2.2 g/dL (3.4-5.0); CALCIUM 8.3 mg/dL (8.5-10.1); CREATININE 1.2 mg/dL (0.6-1.3); POTASSIUM 3.7 mmol/L (3.5-5.1); TOTAL BILIRUBIN 0.7 mg/dL (<0.1-1.0); TOTAL PROTEIN 6.4 g/dL (6.4-8.2)
[2021-01-30 05:20] LABS: HEMATOCRIT 24.6 % (37.0-47.0); HEMOGLOBIN 7.7 gm/dL (12.0-15.0); MCH 28.7 pg (26.0-34.0); MCHC 31.4 g/dL (28.0-37.0); MCV 91.6 fL (80.0-100.0); MPV 8.2 fl. (7.2-11.1); NUCLEATED RBCS 0 /100WBC; PLATELET COUNT* 102 thou/uL (150-400); RBC 2.68 mil/uL (4.20-5.00); RDW-CV 21.1 % (10.5-14.5); WBC 2.8 thou/uL (4.0-11.0)
[2021-01-30 06:49] LABS: ABSOLUTE LYMPHOCYTES 0.8 thou/uL (0.8-5.3); ABSOLUTE MONOCYTES 0.1 thou/uL (0.0-1.2); ABSOLUTE NEUTROPHILS 1.8 thou/uL (1.6-8.1); ANISOCYTOSIS 1+; HYPOCHROMASIA 1+; PLATELET ESTIMATE DECREASED; POIKILOCYTOSIS 1+
[2021-01-30 06:50] LABS: MACROCYTES Occasional; POLYCHROMASIA 1+
[2021-01-30 08:00] VITALS: BP 108/48
[2021-01-30 12:00] VITALS: BP 104/52
[2021-01-30 18:23] VITALS: BP 108/50
[2021-01-30 20:00] VITALS: BP 114/54
[2021-01-31] VITALS: BP 104/53
[2021-01-31 03:46] VITALS: BP 108/59
[2021-01-31 04:46] LABS: HEMATOCRIT 26.7 % (37.0-47.0); HEMOGLOBIN 8.4 gm/dL (12.0-15.0); MCH 28.8 pg (26.0-34.0); MCHC 31.6 g/dL (28.0-37.0); MCV 91.4 fL (80.0-100.0); MPV 7.9 fl. (7.2-11.1); NUCLEATED RBCS 0 /100WBC; PLATELET COUNT* 129 thou/uL (150-400); RBC 2.92 mil/uL (4.20-5.00); RDW-CV 20.6 % (10.5-14.5); WBC 2.7 thou/uL (4.0-11.0)
[2021-01-31 04:58] LABS: ALBUMIN 2.8 g/dL (3.4-5.0); CALCIUM 9.1 mg/dL (8.5-10.1); CREATININE 1.1 mg/dL (0.6-1.3); MAGNESIUM 1.7 mg/dL (1.8-2.4); POTASSIUM 3.2 mmol/L (3.5-5.1); TOTAL BILIRUBIN 0.7 mg/dL (<0.1-1.0); TOTAL PROTEIN 7.3 g/dL (6.4-8.2)
[2021-01-31 06:19] LABS: ABSOLUTE MONOCYTES 0.1 thou/uL (0.0-1.2); ABSOLUTE NEUTROPHILS 1.6 thou/uL (1.6-8.1); ATYPICAL LYMPHS 10 %; PLATELET ESTIMATE ADEQUATE
[2021-01-31 08:20] VITALS: BP 109/57
--- NOTE | 2021-01-31 11:25 | EKG ---
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1960 Requested By: Hal Lechuga Order Number: [id number] Reading MD: Juan Manuel Ospina Measurements Intervals [place] Rate: 82 P: 35 IL: 149 QRS: 9 QRSD: 105 T: 56 QT: 402 QTc: 470 Interpretive Statements Sinus rhythm Minimal ST depression, lateral leads Compared to ECG 12/16/2020 13:18:51 ST (T wave) deviation now present Early repolarization no longer present Possible ischemia no longer present Electronically Signed On 01-31-2021 11:24:55 CDT by Juan Manuel Ospina [email or web address] <ELECTRONICALLY SIGNED> By: Juan Manuel Ospina MD, FAC 01/31/21 1124 9 9 Juan Manuel Ospina MD, FAC /EPI
[2021-01-31 11:50] VITALS: BP 106/48
[2021-01-31 16:03] VITALS: BP 122/50
[2021-01-31 16:24] LABS: CALCIUM 8.9 mg/dL (8.5-10.1); POTASSIUM 3.5 mmol/L (3.5-5.1)
[2021-01-31 20:00] VITALS: BP 112/48
[2021-02-01 00:46] VITALS: BP 100/52
[2021-02-01 04:39] VITALS: BP 116/58
[2021-02-01 04:47] LABS: ABSOLUTE EOSINOPHILS 0.1 thou/uL (0.0-0.7); ABSOLUTE LYMPHOCYTES 0.9 thou/uL (0.8-5.3); ABSOLUTE MONOCYTES 0.3 thou/uL (0.0-1.2); ABSOLUTE NEUTROPHILS 1.6 thou/uL (1.6-8.1); BASOPHILS 0.5 %; EOSINOPHILS 2.3 %; HEMATOCRIT 24.9 % (37.0-47.0); HEMOGLOBIN 7.9 gm/dL (12.0-15.0); LYMPHOCYTES 32.7 %; MCH 28.7 pg (26.0-34.0); MCHC 31.7 g/dL (28.0-37.0); MCV 90.5 fL (80.0-100.0); MPV 7.7 fl. (7.2-11.1); NUCLEATED RBCS 0 /100WBC; PLATELET COUNT* 142 thou/uL (150-400); POLYS 55.5 %; RBC 2.75 mil/uL (4.20-5.00); RDW-CV 20.6 % (10.5-14.5); WBC 2.8 thou/uL (4.0-11.0)
[2021-02-01 05:00] LABS: ALBUMIN 2.3 g/dL (3.4-5.0); CALCIUM 8.5 mg/dL (8.5-10.1); CREATININE 1.1 mg/dL (0.6-1.3); POTASSIUM 3.9 mmol/L (3.5-5.1); TOTAL BILIRUBIN 0.5 mg/dL (<0.1-1.0); TOTAL PROTEIN 6.4 g/dL (6.4-8.2)
[2021-02-01 07:55] VITALS: BP 119/60
[2021-02-01 12:00] VITALS: BP 104/47
[2021-02-01 16:00] VITALS: BP 134/90
[2021-02-01 16:39] LABS: CALCIUM 8.2 mg/dL (8.5-10.1); CREATININE 1.1 mg/dL (0.6-1.3); POTASSIUM 3.8 mmol/L (3.5-5.1)
[2021-02-01 20:30] VITALS: BP 102/43
[2021-02-02 00:30] VITALS: BP 126/59
[2021-02-02 04:24] LABS: ABSOLUTE EOSINOPHILS 0.1 thou/uL (0.0-0.7); ABSOLUTE LYMPHOCYTES 1.3 thou/uL (0.8-5.3); ABSOLUTE MONOCYTES 0.3 thou/uL (0.0-1.2); ABSOLUTE NEUTROPHILS 1.5 thou/uL (1.6-8.1); BASOPHILS 0.6 %; EOSINOPHILS 2.5 %; HEMATOCRIT 24.9 % (37.0-47.0); HEMOGLOBIN 7.9 gm/dL (12.0-15.0); MCH 28.7 pg (26.0-34.0); MCHC 31.9 g/dL (28.0-37.0); MONOCYTES 9.2 %; MPV 7.6 fl. (7.2-11.1); NUCLEATED RBCS 0 /100WBC; PLATELET COUNT* 149 thou/uL (150-400); POLYS 45.7 %; RBC 2.76 mil/uL (4.20-5.00); RDW-CV 19.8 % (10.5-14.5); WBC 3.2 thou/uL (4.0-11.0)
[2021-02-02 04:27] LABS: CALCIUM 9.1 mg/dL (8.5-10.1); CREATININE 1.2 mg/dL (0.6-1.3); POTASSIUM 3.6 mmol/L (3.5-5.1)
[2021-02-02 04:28] VITALS: BP 115/46
[2021-02-02 07:40] VITALS: BP 110/49
[2021-02-02] MEDS ORDERED: NEXIUM40 MG PO (10:46)
[2021-02-02] MEDS ORDERED: LASIX 40 MG TAB40 M2 PO (10:46)
[2021-02-02] MEDS ORDERED: COZAAR 50 MG TA50 M1 PO (10:46)
[2021-02-02] MEDS ORDERED: SPIRONOLACTONE25 MG PO (10:46)
[2021-02-02 12:17] VITALS: BP 101/43
[2021-02-02 15:25] VITALS: BP 101/43
[2021-02-02 15:27] VITALS: BP 101/43
--- NOTE | 2021-02-04 15:07 | PATH ---
[address] [address] PATHOLOGY RPT PROCEDURE Name: KARLA HERNADEZ Room: [address] IN M.R.#: [id number] Admission: 01/27/21 Date of : 62 Discharge: 02/02/21 Report #: [id number] Path Case #: [id number] [facility] Accession Number: [id number] . 01 Material submitted: . colon - DESCENDING COLON POLYP. Modifiers: descending . 01 Clinical history: . COLONOSCOPY . 02 Diagnosis: Descending colon polyp: - Tubular adenoma, negative for high-grade dysplasia. (DIANDRA:chiquis; 02/04/2021) MBR 02/04/2021 1034 Local . 02 Electronically signed: . Garrett Chinchilla MD, Pathologist NPI- [id number] . 01 Gross description: . Received in formalin and labeled "Evert, Karla and descending colon polyp". Received are multiple eden-huratdo soft tissue fragments ranging from 0.1-0.3 cm admixed with vegetative material. The specimen is entirely submitted in cassettes A1 through A3.(J; 02/03/2021) BLJ/BLJ 02/04/2021 1037 Local . 02 Pathologist provided ICD-10: D12.4 . 02 CPT . 060233 Specimen Comment: A courtesy copy of this report has been sent to [phone] Specimen Comment: [phone], , Specimen Comment: Report sent to ,DR TEMPLETON,DR HOWELL / DR MILLER Performed at: [address], [place] [id number] MD Marcus Gresham MD Phone: [phone] Performed at: 02 [facility] [address], [place], [place] [id number] MD Garrett Chinchilla MD Phone: [phone]
--- NOTE | 2021-02-07 10:06 | PATH ---
[place] [address] PATHOLOGY RPT PROCEDURE Name: KARLA HERNADEZ Room: [address] IN M.R.#: [id number] Admission: 01/27/21 Date of : 62 Discharge: 02/02/21 Report #: [id number] Path Case #: [id number] L[facility] Accession Number: [id number] . 01 Material submitted: . esophagus - ESOPHAGEAL BIOPSY . 01 Clinical history: . BIOPSY FOR GASTRITIS . 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 (DIANDRA:jose guadalupe; 02/03/2021) . Special stain: H. pylori immuno QMS 02/04/2021 1444 Local . 02 Electronically signed: . Garrett Chinchilla MD, Pathologist NPI- [id number] . 01 Gross description: . Received in formalin labeled "Evert, Karla, esophageal biopsy" are multiple hurtado-brown soft tissue fragments measuring in aggregate 0.7 x 0.6 x 0.1 cm. The specimen is submitted entirely in A1. ([facility] [place]; 02/02/2021) [facility] 02/02/2021 1023 Local . 02 Pathologist provided ICD-10: K29.50 . 02 CPT . 540789, N55220 Specimen Comment: A courtesy copy of this report has been sent to [phone], [phone] Specimen Comment: [phone], , Specimen Comment: Report sent to ,DR MILLER,DR HOWELL / DR TEMPLETON Performed at: [address], [place], [place] [id number] MD Marcus Gresham MD Phone: [phone] Performed at: 02 [facility] [address], [place], [place] [id number] MD Garrett Chinchilla MD Phone: [phone]
== END 2021-02-02 16:20 | disposition home health service (06) | DRG 811 ==
LOC: M.PRE 08:27 → M.2W 09:34
PROVIDERS: Internal Medicine; Internal Medicine Critical Care Medicine; ADMIT Internal Medicine; ATTEND Internal Medicine
PROC: 30233N1 Transfusion of Nonautologous Red Blood Cells into Peripheral Vein, Percutaneous Approach (ICD-10-PCS; principal; 2021-01-27)
PROC: 0DB68ZX Excision of Stomach, Via Natural or Artificial Opening Endoscopic, Diagnostic (ICD-10-PCS; 2021-01-28)
PROC: 0DBM8ZZ Excision of Descending Colon, Via Natural or Artificial Opening Endoscopic (ICD-10-PCS; 2021-01-31)
DX: D62 Acute posthemorrhagic anemia (principal); I50.23 Acute on chronic systolic (congestive) heart failure; E44.0 Moderate protein-calorie malnutrition; N17.9 Acute kidney failure, unspecified; J91.8 Pleural effusion in other conditions classified elsewhere; I42.9 Cardiomyopathy, unspecified; K29.70 Gastritis, unspecified, without bleeding; D61.818 Other pancytopenia; E11.42 Type 2 diabetes mellitus with diabetic polyneuropathy; N18.9 Chronic kidney disease, unspecified; M54.9 Dorsalgia, unspecified; E11.22 Type 2 diabetes mellitus with diabetic chronic kidney disease; G89.29 Other chronic pain; E78.5 Hyperlipidemia, unspecified; J44.9 Chronic obstructive pulmonary disease, unspecified; K64.4 Residual hemorrhoidal skin tags; I27.20 Pulmonary hypertension, unspecified; I25.10 Atherosclerotic heart disease of native coronary artery without angina pectoris; G47.33 Obstructive sleep apnea (adult) (pediatric); D69.6 Thrombocytopenia, unspecified; F41.9 Anxiety disorder, unspecified; K64.8 Other hemorrhoids; D12.4 Benign neoplasm of descending colon; K44.9 Diaphragmatic hernia without obstruction or gangrene; K57.30 Diverticulosis of large intestine without perforation or abscess without bleeding; D63.8 Anemia in other chronic diseases classified elsewhere; Z88.8 Allergy status to other drugs, medicaments and biological substances; Z68.34 Body mass index [BMI] 34.0-34.9, adult; Z90.49 Acquired absence of other specified parts of digestive tract; Z95.5 Presence of coronary angioplasty implant and graft; Z87.891 Personal history of nicotine dependence

== ENCOUNTER 2021-02-10 12:10 | Inpatient (IN) | payer OTHER ==
[~2021-02-10] VITALS: Ht 165.1 cm; Wt 85.5 kg
--- NOTE | ~2021-02-10 | CON ---
[address] [address] CONSULTATION Name: DM HERNADEZ Room: [address] IN M.R.#: [id number] Admission: 02/10/21 Attend Phys: Catherine Graham MD Discharge: Date of : 62 Report #: [id number] THIS REPORT FOR: cc: Steve Medina MD, Anthony MD Elia, Manana MD ~ DOC #: [id number] Nils Murguia MD DATE OF CONSULTATION: 02/13/2021 REASON FOR CONSULTATION: Regarding anemia. REQUESTING PHYSICIAN: Quang Muñoz MD. HISTORY OF PRESENT ILLNESS: The patient is an unfortunate 60-year-old woman who has history of congestive heart failure, pulmonary hypertension and COPD. She has been having recurrent pleural effusions, most likely secondary to CHF. She required therapeutic thoracentesis several times on recent admissions. She is admitted to the hospital again with shortness of breath and pleural effusion. The patient has significant anemia and Hematology consult is requested. She is in mild acute distress. She says she had thoracentesis yesterday and felt better. This morning, she had allergic reaction to the medication, so she is not feeling well. She does not have fevers. She does not have melena or hematochezia. She had a colonoscopy recently, which was unremarkable. No signs of bleeding. She was seen by Dr. French during her last admission. The patient is on oral iron, although she says she was told "iron would not help if she starts taking iron." PAST MEDICAL HISTORY: Significant for CHF, coronary artery disease, COPD, hyperlipidemia, hypertension, diabetes mellitus, pulmonary hypertension as per pulmonary's notes. SOCIAL HISTORY: She smoked for several decades, 2-1/2 pack a day, recently does not smoke. , at bedside. FAMILY HISTORY: Noncontributory. REVIEW OF SYSTEMS: See above. PHYSICAL EXAMINATION: GENERAL: Reveals a well-developed, well-nourished woman, in mild acute distress because of shortness of breath and some anxiety. VITAL SIGNS: Blood pressure 112/63, heart rate is 103, temperature 97.4, respirations 22. HEENT: [place] [address] CONSULTATION Name: DM HERNADEZ Room: [address]#: [id number] Admission: 02/10/21 Attend Phys: Catherine Graham MD Discharge: Date of : 62 Report #: [id number] HEART: Normal S1, S2. LUNGS: Clear. ABDOMEN: Soft. There is no supraclavicular lymphadenopathy. SKIN: Does not reveal rash. LABORATORY DATA: White count 8.0, hemoglobin 8.1, MCV 90.9, platelets 274. ESR 112, LDH 245, reticulocyte 5.8%. ASSESSMENT AND PLAN: Anemia, probably multifactorial. The patient has mild renal insufficiency, chronic disease and possibly iron deficiency. Her ferritin was checked 2 months ago and was 51. Ferritin is low in this setting, plan to repeat iron studies. Thank you very much for allowing me to participate in the care of this patient. We will follow the patient with you. MD CELESTE Poole/RENÉE By: 2107 0001Nils Murguia MD /brendon
[~2021-02-10 12:10] MED LIST changes: +LASIX 40 MG TAB40 M2 PO; +NEXIUM40 MG PO; +PAXIL20 MG PO
[2021-02-10 12:20] VITALS: BP 117/56
[2021-02-10 13:44] LABS: ABSOLUTE MONOCYTES 0.4 thou/uL (0.0-1.2); ABSOLUTE NEUTROPHILS 3.7 thou/uL (1.6-8.1); BASOPHILS 0.8 %; EOSINOPHILS 0.2 %; HEMATOCRIT 25.6 % (37.0-47.0); HEMOGLOBIN 8.2 gm/dL (12.0-15.0); LYMPHOCYTES 19.2 %; MCH 28.5 pg (26.0-34.0); MCHC 31.9 g/dL (28.0-37.0); MCV 89.2 fL (80.0-100.0); MONOCYTES 7.1 %; MPV 7.4 fl. (7.2-11.1); NUCLEATED RBCS 0 /100WBC; PLATELET COUNT* 221 thou/uL (150-400); POLYS 72.7 %; RBC 2.86 mil/uL (4.20-5.00); RDW-CV 19.3 % (10.5-14.5); WBC 5.1 thou/uL (4.0-11.0)
[2021-02-10 13:52] LABS: CALCIUM 9.4 mg/dL (8.5-10.1); CREATININE 1.1 mg/dL (0.6-1.3); POTASSIUM 3.6 mmol/L (3.5-5.1)
[2021-02-10 13:52] LABS: URINE BILIRUBIN NEGATIVE (Negative); URINE BLOOD NEGATIVE (Negative); URINE COLOR YELLOW; URINE GLUCOSE-RANDOM NEGATIVE (Negative); URINE KETONES NEGATIVE (Negative); URINE LEUKOCYTES-REFLEX 1+ (Negative); URINE NITRITE-REFLEX NEGATIVE (Negative); URINE PROTEIN NEGATIVE (Negative); URINE UROBILINOGEN 0.2 E.U./dl (0.2-1.0)
[2021-02-10 13:55] LABS: URINE CLARITY HAZY
[2021-02-10 14:03] LABS: APTT 25.6 Seconds (25.0-31.3); INR 1.1; PROTIME 11.5 Seconds (9.20-11.50)
[2021-02-10 14:04] LABS: ALBUMIN 2.5 g/dL (3.4-5.0); TOTAL BILIRUBIN 0.5 mg/dL (<0.1-1.0); TOTAL PROTEIN 7.5 g/dL (6.4-8.2)
[2021-02-10 14:23] LABS: BACTERIA-REFLEX >30 Many /HPF (None Seen); CASTS None Seen /LPF (None Seen); CRYSTALS None Seen /LPF (None Seen); SQUAMOUS 4-10 Moderate /LPF (0-3); URINE RBC None Seen /HPF (0-2); URINE WBC-REFLEX >25 Many /HPF (0-5)
--- NOTE | 2021-02-10 16:23 | EKG ---
[place] [address] ELECTROCARDIOGRAM REPORT Name: DM HERNADEZ Room: [facility]#: [id number] Admission: 02/10/21 Attend Phys: Discharge: Date of : 62 Date of Service: 02/10/21 1245 Report #: [id number] THIS REPORT FOR: //name// [facility] ED Test Date: 2021-02-10 Test Time: 12:45:57 Pat Name: DM HERNADEZ Department: Room: Gender: [employer]: BRADLEY : 1960 Requested By: Ashley Aragon Order Number: [id number] MD: Ryan Barajas Measurements Intervals [place] Rate: 77 P: 49 [place]: 155 QRS: -12 QRSD: 104 T: 141 QT: 391 QTc: 443 Interpretive Statements Sinus rhythm Probable left atrial enlargement Minor IVCD of the left type Abnormal T, consider ischemia, lateral leads Baseline wander in lead(s) V4 Compared to ECG 01/31/2021 08:20:10 T-wave abnormality persists Electronically Signed On 02-10-2021 16:23:28 CDT by Ryan Barajas [email or web address] <ELECTRONICALLY SIGNED> By: Ryan Barajas MD, [facility] 02/10/21 1623 1245 1245 Ryan Barajas MD, FAC /EPI
[2021-02-10 17:40] VITALS: BP 113/49
[2021-02-10 17:55] VITALS: BP 102/51
--- NOTE | 2021-02-10 19:36 | NUR ---
Pt admitted from ED at 1710. A&OX4. VSS. LOZOYA, and states worsening SOA X2 days. On 2L O2 per NC. States she has been on 2L at home. Discharged home 1 week ago. Will be NPO after MN. Denies pain. Will continue to monitor.
[2021-02-10 19:55] VITALS: BP 101/43
[2021-02-10 23:27] VITALS: BP 105/54
[2021-02-11] VITALS (7 sets, daily range): BP systolic 90–121; BP diastolic 49–66
--- NOTE | 2021-02-11 00:48 | NUR ---
ASSUMED CARE OF PT AT 1900. PT IS ALERT AND ORIENTED. VSS. PERRLA. PT HAS ORTHOPNEA WHEN LYING DOWN. PT IS IN SINUS RYTHM ON THE TELEMETRY. PT IS RESTING COMFORTABLY IN BED. RESPIRATIONS ARE EVEN AND NONLABORED. WILL CONTINUE TO MONITOR PT.
[2021-02-11 04:36] LABS: HEMATOCRIT 26.1 % (37.0-47.0); MCHC 30.6 g/dL (28.0-37.0); MCV 91.5 fL (80.0-100.0); MPV 7.7 fl. (7.2-11.1); RBC 2.86 mil/uL (4.20-5.00); RDW-CV 19.8 % (10.5-14.5)
[2021-02-11 04:45] LABS: CALCIUM 9.4 mg/dL (8.5-10.1); CREATININE 1.3 mg/dL (0.6-1.3); POTASSIUM 3.8 mmol/L (3.5-5.1)
--- NOTE | 2021-02-11 14:01 | NUR ---
Pt is A&O. Known to this CM from previous hospital stay. Resides at home with and son. Inpendent. Pt has a rollator. Pt recently dc from [facility] on 02/02 with [facility], plans to resume at dc. Pt to have thora today. Anticipate dc in a few days.
[2021-02-11 14:18] LABS: BF RBC 8834 /mm3; CLARITY TURBID; SOURCE THORACENTESIS; TOTAL CELL COUNT 249 /mm3; TOTAL VOLUME 1400 ml
[2021-02-11 15:02] LABS: BF LYMPHOCYTES 85 %; BF MONOCYTES 4 %; BF POLYS 11 %; BF TISSUE 25 /100 WBC
--- NOTE | 2021-02-11 17:26 | 2DMMODE ---
[place] [address] 2 D/M-MODE ECHOCARDIOGRAM Name: DM HERNADEZ Room: [address] IN M.R.#: [id number] Admission: 02/10/21 Attend Phys: Catherine Graham MD Discharge: Date of : 62 Date of Service: 02/11/21 1725 Report #: [id number] THIS REPORT FOR: cc: Steve Medina MD, Anthony MD Holkins,Ryan Mcdonnell MD [facility] ~ APPROVED REPORT Study performed: 02/11/2021 15:41:08 EXAM: Limited 2D Echocardiogram BSA: 1.93 HR: 77 bpm BP: 96/56 mmHg Rhythm: NSR Other Information Study Quality: Good Indications Rule out pericardial effusion Left Ventricle Left ventricle is at the upper limits of normal. There are segmental wall motion abnormalities with distal septal and apical hypokinesis and inferobasilar akinesis. There is normal left ventricular wall thickness. Left ventricular systolic function is moderately decreased. LVEF is 40%. Right Ventricle The right ventricle is normal size. The right ventricular systolic function is normal. Atria The left atrium size is normal. The right atrium size is normal. Aortic Valve Mild aortic valve sclerosis. Mitral Valve The mitral valve is normal in structure. Tricuspid Valve [facility] [address] [place] [address] 2 D/M-MODE ECHOCARDIOGRAM Name: DM HERNADEZ Room: [address] IN M.R.#: [id number] Admission: 02/10/21 Attend Phys: Catherine Graham MD Discharge: Date of : 62 Date of Service: 02/11/211724 Report #: [id number] The tricuspid valve is normal in structure. Pulmonic Valve The pulmonary valve is normal in structure. Great Vessels The aortic root is normal in size. IVC is normal in size and collapses >50% with inspiration. Pericardium There is no pericardial effusion. Left pleural effusion. <Conclusion> Left ventricle is at the upper limits of normal. There is normal left ventricular wall thickness. Left ventricular systolic function is moderately decreased. LVEF is 40%. The right ventricle is normal size. The left atrium size is normal. Mild aortic valve sclerosis. The mitral valve is normal in structure. The tricuspid valve is normal in structure. IVC is normal in size and collapses >50% with inspiration. There is no pericardial effusion. There are segmental wall motion abnormalities with distal septal and apical hypokinesis and inferobasilar akinesis. <ELECTRONICALLY SIGNED> By: Ryan Barajas MD, [facility] 02/11/211724 24 1725 Ryan Barajas MD, FACC /INF
--- NOTE | 2021-02-11 18:30 | NUR ---
Home medication clarifications: Carvedilol--pt was never actually on carvedilol at home, and was told to continue her metoprolol. Metoprolol--100 mg in am; 50 mg in pm Paxil--dose recently increased to 30 mg daily Buspar--dose recently increased to 15 mg BID These changes have been made to home medication list today. Pt had L thoracentesis today, 1400 ml removed. Pt states she feels better and better able to breathe and rest. Waffle cushion placed in recliner, and barrier ointment provided per pt request. VSS. Will continue to monitor.
[2021-02-11] MEDS ORDERED: LOPRESSOR50 MG PO ×2 (18:35→18:37)
--- NOTE | 2021-02-11 23:27 | NUR ---
ASSUMED CARE OF PT AT 1900. PT IS ALERT AND ORIENTED. VSS. PERRLA. NO COMPLAINTS OF PAIN. PT REPORTS BEING LESS SOA SINCE THORACENTESIS. PT IS IN SINUS RYTHM ON THE TELEMETRY. PT IS RESTING COMFORTABLY IN BED. RESPIRATIONS ARE EVEN AND NONLABORED. WILL CONTINUE TO MONITOR PT.
[2021-02-12 03:40] VITALS: BP 108/60
[2021-02-12 08:00] VITALS: BP 108/55
[2021-02-12 12:00] VITALS: BP 97/46
[2021-02-12 13:44] LABS: HEMOGLOBIN 7.7 gm/dL (12.0-15.0); MCH 28.4 pg (26.0-34.0); NUCLEATED RBCS 0 /100WBC; WBC 6.7 thou/uL (4.0-11.0)
[2021-02-12 13:46] LABS: HEMATOCRIT 24.5 % (37.0-47.0); MCHC 31.4 g/dL (28.0-37.0); MCV 90.6 fL (80.0-100.0); MPV 7.5 fl. (7.2-11.1); PLATELET COUNT* 230 thou/uL (150-400)
[2021-02-12 13:57] LABS: ALBUMIN 2.5 g/dL (3.4-5.0); CALCIUM 8.8 mg/dL (8.5-10.1); CREATININE 1.6 mg/dL (0.6-1.3); POTASSIUM 3.2 mmol/L (3.5-5.1); TOTAL BILIRUBIN 0.6 mg/dL (<0.1-1.0); TOTAL PROTEIN 7.3 g/dL (6.4-8.2)
[2021-02-12 14:43] LABS: ABSOLUTE LYMPHOCYTES 1.2 thou/uL (0.8-5.3); ABSOLUTE MONOCYTES 0.2 thou/uL (0.0-1.2); ABSOLUTE NEUTROPHILS 5.3 thou/uL (1.6-8.1)
[2021-02-12 14:46] LABS: ANISOCYTOSIS 1+; PLATELET ESTIMATE ADEQUATE
[2021-02-12 16:00] VITALS: BP 97/46
[2021-02-12 19:30] VITALS: BP 112/63
--- NOTE | 2021-02-12 21:06 | NUR ---
I ASSUMED CARE OF THE PATIENT AT 0700. SHE IS ALERT AND ORIENTED X4 AND IS UP WITH SBA. BED IS IN THE LOW LOCKED POSITION AND CALL LIGHT IS IN REACH. HOURLY ROUNDING IS COMPLETED AND PATIENT NEEDS ARE MET. PAIN IS DENIED. BLOOD GLUCOSE IS MONITORED. BUSPAR SHOULD BE INCREASED TO 15MG. HEMOC AND PULM WERE CONSULTED AND NEW ORDERS WERE OBTAINED. PATIENT WAS REPOSITIONED EVERY TWO HOURS. 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 WE WAITED TO START THE DOBUTAMINE UNTIL THE POTASSIUM WAS REPLACED AT THE REQUEST OF DR ABREU. AFTER JUST A FEW MINUTES OF THE DRIP, SHE EXPERIENCED CHEST PAIN, SOA AND TACHYCARDIA. I STOPPED THE DRIP AND DID AN EKG. THE NIGHT NURSE CONTACTED CARDIOLOGY AND NEW ORDERS WERE OBTAINED. FLUID RESTRICTION WAS FOLLOWED. WILL CONTINUE TO MONITOR.
[2021-02-13] VITALS: BP 102/57
[2021-02-13 03:40] VITALS: BP 126/47
[2021-02-13 05:26] LABS: ABSOLUTE LYMPHOCYTES 1.4 thou/uL (0.8-5.3); ABSOLUTE MONOCYTES 0.4 thou/uL (0.0-1.2); ABSOLUTE NEUTROPHILS 6.1 thou/uL (1.6-8.1); BASOPHILS 0.3 %; HEMATOCRIT 25.7 % (37.0-47.0); HEMOGLOBIN 8.1 gm/dL (12.0-15.0); MCH 28.6 pg (26.0-34.0); MCHC 31.4 g/dL (28.0-37.0); MCV 90.9 fL (80.0-100.0); MONOCYTES 5.6 %; MPV 7.7 fl. (7.2-11.1); NUCLEATED RBCS 0 /100WBC; PLATELET COUNT* 274 thou/uL (150-400); POLYS 76.1 %; RBC 2.83 mil/uL (4.20-5.00); RDW-CV 19.7 % (10.5-14.5)
[2021-02-13 05:50] LABS: ALBUMIN 2.6 g/dL (3.4-5.0); CALCIUM 9.4 mg/dL (8.5-10.1); CREATININE 1.5 mg/dL (0.6-1.3); MAGNESIUM 2.4 mg/dL (1.8-2.4); TOTAL BILIRUBIN 0.4 mg/dL (<0.1-1.0); TOTAL PROTEIN 7.6 g/dL (6.4-8.2)
[2021-02-13 05:55] LABS: POTASSIUM 5.2 mmol/L (3.5-5.1)
[2021-02-13 06:11] LABS: PHOSPHORUS* 3.2 mg/dL (2.5-4.9)
[2021-02-13 08:00] VITALS: BP 112/63
[2021-02-13 09:06] LABS: BODY FLUID PROTEIN 1.7 g/dL (())
[2021-02-13 11:06] LABS: BODY FLUID PH 7.6 (Not Estab.)
[2021-02-13 12:00] VITALS: BP 110/60; BP 98/55
[2021-02-13 12:19] LABS: % SATURATION 19 % (20-39); IRON 52 ug/dL (50-175)
[2021-02-13 17:45] LABS: CALCIUM 9.2 mg/dL (8.5-10.1); CREATININE 1.6 mg/dL (0.6-1.3); MAGNESIUM 2.2 mg/dL (1.8-2.4); POTASSIUM 5.6 mmol/L (3.5-5.1)
[2021-02-13 18:14] VITALS: BP 103/54
[2021-02-13 20:05] VITALS: BP 103/47
--- NOTE | 2021-02-13 21:55 | CON ---
[address] [address] CONSULTATION Name: DM HERNADEZ Room: [address] IN .R.#: [id number] Admission: 02/10/21 Attend Phys: Catherine Graham MD Discharge: Date of : 62 Report #: [id number] THIS REPORT FOR: cc: Steve Meidna MD, Anthony MD Pervez,Porfirio TARIQ ~ DOC #: [id number] Porfirio Pedraza MD DATE OF CONSULTATION: 02/12/2021 REQUESTING PHYSICIAN: Quang Muñoz MD INDICATION FOR CONSULTATION: Pleural effusion. HISTORY OF PRESENT ILLNESS: This 60-year-old female with past medical history is as mentioned below. The patient has had multiple admissions to this hospital recently. In summary, she has a history of congestive heart failure, left ventricular ejection fraction is around 40-45%. She has had significant pulmonary hypertension with a pulmonary artery systolic up to around 70 as well. Previous workup for thromboembolism is negative. She does have COPD as well. The patient has had a recent loculated pleural effusion and she was on Plavix and had a thoracentesis, some hemorrhage also had occurred after the thoracentesis into the pleural space. The patient did eventually get transfer to [facility] where she did have surgery. She had blood cultures positive for MRSA and did have extensive antibiotic treatment including with IV vancomycin. Subsequently, the patient got back to her rehab unit where she got more fluid overloaded. She has also had anemia, which has not been previously fully worked up. Due to her ongoing cardiac and respiratory issues, she dropped hemoglobin as well and gotten transferred to her acute floor, we diuresed her. The patient did stabilize and subsequently was discharged. She did have a pleural effusion on the left side during the last hospitalization initially due to the fact that it appeared to be from congestive heart failure and she was on Plavix, which would have increased risk of thoracentesis on the left side. We had held off on thoracentesis on the left side. Subsequently, she was off Plavix, but the patient had requested immediate discharge and therefore got restarted on Plavix. By the time she had agreed to stay if we asked her to and at that time, I felt that the risk of doing a thoracentesis will be greater than the benefit and therefore, the patient considering that clinically she was doing much better, was discharged in a stable condition. The patient states that at home since her last discharge, there has been increase in shortness of breath. She has had some increase in cough as well. However, there is not much sputum production. She had one small episode of hemoptysis, but she has had some epistaxis as well, [place] [address] CONSULTATION Name: DM HERNADEZ Room: [address] IN M.R.#: [id number] Admission: 02/10/21 Attend Phys: Catherine Graham MD Discharge: Date of : 62 Report #: [id number] blood from her nose. She does not otherwise describe any new upper respiratory complaints. She also does not have swelling of lower extremities or calf pain. She has had disturbed sleep at night. She has had sleepiness during the day. These complaints are not significantly changed compared with her previous baseline. REVIEW OF SYSTEMS: The patient's review of systems for 12 points is negative except as mentioned above. PAST MEDICAL HISTORY: Congestive heart failure, previous left ventricular ejection fraction around 40-45% with a pulmonary artery systolic around 67-70. Previous workup for thromboembolism negative, loculated right-sided pleural effusion with MRSA cultures positive, recent surgery at [facility], recent pneumonia, recent acute renal insufficiency. Baseline creatinine, however, is 1.0. Anemia, likely acute blood loss anemia. She has had recent blood transfusions due to ongoing respiratory and cardiac issues. This was not fully evaluated previously. Coronary artery disease, status post stents, recent non-ST myocardial infarction in 11/2020, COPD, previous PFTs not available. Obstructive sleep apnea by clinical history. Has not had a sleep study yet. Diabetes, hyperlipidemia, hypertension, endometriosis, ovarian cysts. SOCIAL HISTORY: The patient smoked for several decades two and a half packs a day. Has only recently discontinued smoking. No known history of heavy alcohol use or illegal drug use. MEDICATIONS: Current medication list in [employer] reviewed. Home medication list in [employer] reviewed. FAMILY HISTORY: No pertinent family history. ALLERGIES: SHE HAS HAD ALLERGY OR ADVERSE REACTION TO IBUPROFEN. PHYSICAL EXAMINATION: GENERAL: She is alert, awake and oriented, does not appear to be in any distress at this time. Had thoracentesis yesterday, reports that she is feeling significantly better since then. VITAL SIGNS: Has a pulse of 83 and a blood pressure of 108/55. She is saturating 100% on 2 liters nasal cannula. Respiratory rate is 16. She is afebrile with a temperature of 36.5. HEENT: Head is normocephalic and atraumatic. Pupils are equal and reactive. There is no throat erythema. There is no thrush in her throat. NECK: Does not show raised JVP, asymmetry, mass or lymph nodes. CHEST: Symmetrical expansion on inspection and palpation on auscultation post-thoracentesis, in fact breath sounds are better on the left side than the [facility] [address] [place] [address] CONSULTATION Name: DM HERNADEZ Room: [address] IN .R.#: [id number] Admission: 02/10/21 Attend Phys: Catherine Graham MD Discharge: Date of : 62 Report #: [id number]. HEART: Regular. There is no murmur. ABDOMEN: Soft and nontender. LOWER EXTREMITIES: Showed no edema, no calf tenderness. SKIN: Dry and intact. NEUROLOGIC: Moves all extremities bilaterally equally and spontaneously with no focal deficit identified. LABORATORY DATA: The patient's CTA chest performed 2 days ago is reviewed. There are bilateral pleural effusions, large on the left side. There are pulmonary infiltrates noted, right greater than left. There are changes consistent with congestive heart failure. There is mild mediastinal lymphadenopathy. There is a left adrenal mass, likely benign. The patient's lab work is in [employer] reviewed. I had labs repeated now and reviewed these as well. The patient had a chest x-ray performed on admission. I reviewed both the films and report. Also had a chest x-ray repeated now and also reviewed films and report. In summary, there is improvement in pulmonary vascular congestion as well as reduction in size of the pleural effusion on the left side with infiltrate looking about the same. In between the two x-rays, there is some increase in atelectasis on the right side. ASSESSMENT AND PLAN: 1. Shortness of breath. This likely was related to the pleural effusion on the left side, which likely is secondary to her congestive heart failure. 2. Acute on chronic systolic congestive heart failure. She in fact does not have much pedal edema at this time and therefore, likely had residual pleural effusion, but not significantly increased intravascular volume. Regardless, at this time, I agree with keeping her on the dry side and diuresing her if her blood pressure and creatinine are able to tolerate. There is an increase in creatinine today; therefore, I did not order additional Lasix now. I ordered one dose of albumin with Lasix already ordered for tomorrow morning. We will consider more albumin and Lasix if her BUN and creatinine hold. Note that her potassium is low and I requested a magnesium level as well. We will replace these if indicated. I understand that the cardiology service has ordered dobutamine as well. 3. Pleural effusions. She has had surgery on the right side recently. The chemistries on the thoracentesis performed yesterday are still pending. If as expected this is a transudate, then I will be inclined to only primarily treat this by treating her underlying etiology, which is congestive heart failure. We may need to reevaluate this in case the fluid is found to be an exudate. Protein was already sent on the fluid. I will see if it is possible to do an LDH as well. Note that the RBCs [place] [address] CONSULTATION Name: DM HERNADEZ Room: [address] IN M.R.#: [id number] Admission: 02/10/21 Attend Phys: Catherine Graham MD Discharge: Date of : 62 Report #: [id number] 4. Pulmonary infiltrates/possible urinary tract infection. I do not see any definite evidence of pneumonia. She did have one episode of hemoptysis. Sputum was sent, but I note that her urine is also abnormal and we are growing E. coli greater than 100,000, in urine. Therefore, pending the results back from the cultures, I did go ahead and start her on ceftriaxone. 5. Chronic obstructive pulmonary disease, does not appear to be actively bronchospastic. I will go ahead and start tapering down prednisone. We will continue with nebulized bronchodilators. 6. Severe pulmonary hypertension. CTA chest again does not show evidence of thromboembolism. There has already been a repeat echocardiogram performed and the report just came back. Left ventricular ejection fraction is 40% and interestingly, the tricuspid valve is now reported to be normal. This is a significant change compared with her previous echocardiograms. I will review with the cardiology service. 7. Obstructive sleep apnea. We will need an outpatient sleep study. 8. Coronary artery disease, has had a myocardial infarction last in 11/2020, has had stents. 9. History of diabetes. 10. History of anemia. The Hematology/Oncology service is again on consult. Thanks for this consultation. Porfirio Pedraza MD AP/SUM <ELECTRONICALLY SIGNED> By: Porfirio Pedraza MD 02/13/21 2155 1325 [id number] Pedraza MD /nt
[2021-02-14] VITALS (7 sets, daily range): BP systolic 94–119; BP diastolic 44–68
--- NOTE | 2021-02-14 01:41 | NUR ---
ASSUMED CARE OF PT AT 1900. PT IS ALERT AND ORIENTED. VSS. NO COMPLAINTS OF PAIN. PT IS CURRENTLY WEARING BIPAP AT THIS TIME. PT IS TOLERATING BIPAP. PT IS IN SINUS RYTHM ON THE TELEMETRY. PT IS RESTING COMFORTABLY IN BED. RESPIRATIONS ARE EVEN AND NONLABORED. WILL CONTINUE TO MONITOR PT.
[2021-02-14 04:48] LABS: ABSOLUTE LYMPHOCYTES 1.2 thou/uL (0.8-5.3); ABSOLUTE MONOCYTES 0.4 thou/uL (0.0-1.2); ABSOLUTE NEUTROPHILS 4.3 thou/uL (1.6-8.1); BASOPHILS 0.2 %; HEMOGLOBIN 7.7 gm/dL (12.0-15.0); LYMPHOCYTES 20.8 %; MCH 28.1 pg (26.0-34.0); MCHC 30.9 g/dL (28.0-37.0); MCV 91.1 fL (80.0-100.0); MONOCYTES 6.1 %; MPV 7.6 fl. (7.2-11.1); NUCLEATED RBCS 0 /100WBC; PLATELET COUNT* 237 thou/uL (150-400); POLYS 72.9 %; RBC 2.74 mil/uL (4.20-5.00); RDW-CV 19.7 % (10.5-14.5); WBC 5.9 thou/uL (4.0-11.0)
[2021-02-14 04:59] LABS: ALBUMIN 2.9 g/dL (3.4-5.0); CALCIUM 9.4 mg/dL (8.5-10.1); CREATININE 1.5 mg/dL (0.6-1.3); TOTAL BILIRUBIN 0.5 mg/dL (<0.1-1.0); TOTAL PROTEIN 7.5 g/dL (6.4-8.2)
[2021-02-14 05:15] LABS: POTASSIUM 4.3 mmol/L (3.5-5.1)
[2021-02-14 10:27] LABS: SOURCE PLEURAL
--- NOTE | 2021-02-14 14:14 | NUR ---
Anticipate that Pt may be medically stable to dc tomorrow, resume HH
--- NOTE | 2021-02-14 16:21 | EKG ---
[place] [address] ELECTROCARDIOGRAM REPORT Name: DM HERNADEZ Room: [address] ADM IN M.R.#: [id number] Admission: 02/10/21 Attend Phys: Catherine Graham MD Discharge: Date of : 62 Date of Service: 02/12/211927 Report #: [id number] THIS REPORT FOR: //name// [facility] Test Date: 2021-02-12 Test Time: 19:28:38 Pat Name: DM HERNADEZ Department: Room: [address] Gender: F [employer]: [facility] : 1960 Requested By: Catherine Graham Order Number: [id number] [place] MD: Juan Manuel Ospina Measurements Intervals [place] Rate: 105 P: 51 [place]: 157 QRS: -21 QRSD: 117 T: 146 QT: 356 QTc: 471 Interpretive Statements Sinus tachycardia nonspecific st segment changes Compared to ECG 02/10/2021 12:45:57 Sinus rhythm no longer present Electronically Signed On 02-14-2021 16:20:58 CDT by Juan Manuel Ospina [email or web address] <ELECTRONICALLY SIGNED> By: Juan Manuel Ospina MD, FAC 02/14/21 1620 1928 27 Juan Manuel Ospina MD, [facility] /EPI
[2021-02-15 04:39] VITALS: BP 115/70
--- NOTE | 2021-02-15 05:58 | NUR ---
NO ACUTE CHANGES THROUGHOUT SHIFT. SEE CHARTING FOR DETAILS. ALL ROUNDINGS COMPLETED, ALL NEEDS MET. BED LOCKED AND IN LOW POSITION. CALL LIGHT AND PERSONAL ITEMS IN REACH. PT USED BIPAP FOR APPROX 5 HOURS THROUGHOUT SHIFT, PT STRUGGLES TO USE BIPAP D/T ANXIETY AND DISCOMFORT.
[2021-02-15 06:39] LABS: ABSOLUTE BASOPHILS 0.1 thou/uL (0.0-0.2); ABSOLUTE LYMPHOCYTES 1.3 thou/uL (0.8-5.3); ABSOLUTE MONOCYTES 0.5 thou/uL (0.0-1.2); ABSOLUTE NEUTROPHILS 7.5 thou/uL (1.6-8.1); BASOPHILS 0.8 %; EOSINOPHILS 0.2 %; HEMATOCRIT 27.1 % (37.0-47.0); HEMOGLOBIN 8.4 gm/dL (12.0-15.0); LYMPHOCYTES 13.8 %; MCH 28.3 pg (26.0-34.0); MCHC 30.9 g/dL (28.0-37.0); MCV 91.6 fL (80.0-100.0); MONOCYTES 5.2 %; MPV 7.1 fl. (7.2-11.1); NUCLEATED RBCS 0 /100WBC; PLATELET COUNT* 265 thou/uL (150-400); RBC 2.96 mil/uL (4.20-5.00); RDW-CV 20.2 % (10.5-14.5); WBC 9.4 thou/uL (4.0-11.0)
[2021-02-15 06:50] LABS: ALBUMIN 2.9 g/dL (3.4-5.0); CALCIUM 9.1 mg/dL (8.5-10.1); CREATININE 1.3 mg/dL (0.6-1.3); POTASSIUM 3.6 mmol/L (3.5-5.1); TOTAL BILIRUBIN 0.6 mg/dL (<0.1-1.0); TOTAL PROTEIN 7.7 g/dL (6.4-8.2)
[2021-02-15 08:00] VITALS: BP 122/68
[2021-02-15] MEDS ORDERED: CARVEDILOL3.125 MG PO (10:40)
[2021-02-15 11:38] VITALS: BP 109/49
--- NOTE | 2021-02-15 14:56 | NUR ---
Cardiology finalizing dc meds. Anticipate dc tomorrow. Resume [facility] to fax referral and orders at ok.
[2021-02-15 16:00] VITALS: BP 95/62
--- NOTE | 2021-02-15 17:06 | PATH ---
[address] [address] PATHOLOGY RPT PROCEDURE Name: DM HERNADEZ Room: [address] IN [facility]#: [id number] Admission: 02/10/21 Date of : 62 Discharge: Report #: [id number] Path Case #: [id number] Note [facility] Accession Number: [id number] TESTS RESULT FLAG UNITS REF RANGE LAB Clinician Provided Cytology Information No. of containers..01 Other (Miscellaneous) Source: LT PLEURAL FLUID DIAGNOSIS: LT PLEURAL FLUID NEGATIVE FOR MALIGNANT CELLS. FEW MESOTHELIAL CELLS, INFLAMMATORY CELLS AND RBCs ARE PRESENT. THIS INTERPRETATION INCLUDES EVALUATION OF A CELL BLOCK. Signed out by: 02 Garrett Chinchilla MD, Pathologist NPI- [id number] Performed by: 01 Amirah Lopez, Broommaker ([facility]) Gross description: 01 30ML, YELLOW/RED, 1TP 1CB /LCS 02/14/2021 0758 Local FLAG LEGEND: L-Low Normal,H-High Normal,LL-Alert Low,HH-Alert High <-Panic Low,>-Panic High,A-Abnormal,AA-Critical Abnormal Performed at: [address] [place] [address] Marcus Gresham MD, [address] [place] [address] [address] [facility], [place] [address] Garrett Chinchilla MD, Specimen Comment: A courtesy copy of this report has been sent to [phone] Specimen Comment: Report sent to DR MAI / DR FARAH Specimen Comment: A duplicate report has been generated due to demographic updates. Performed at: [address], [place], [place] [id number] MD Marcus Gresham MD Phone: [phone]
[2021-02-15 20:00] VITALS: BP 105/58
[2021-02-16 04:15] LABS: ABSOLUTE LYMPHOCYTES 1.3 thou/uL (0.8-5.3); ABSOLUTE MONOCYTES 0.4 thou/uL (0.0-1.2); ABSOLUTE NEUTROPHILS 5.4 thou/uL (1.6-8.1); BASOPHILS 0.4 %; EOSINOPHILS 0.3 %; HEMATOCRIT 26.1 % (37.0-47.0); HEMOGLOBIN 8.2 gm/dL (12.0-15.0); LYMPHOCYTES 18.3 %; MCH 28.4 pg (26.0-34.0); MCHC 31.4 g/dL (28.0-37.0); MCV 90.4 fL (80.0-100.0); MONOCYTES 5.4 %; MPV 7.4 fl. (7.2-11.1); NUCLEATED RBCS 0 /100WBC; PLATELET COUNT* 246 thou/uL (150-400); POLYS 75.6 %; RBC 2.89 mil/uL (4.20-5.00); RDW-CV 20.6 % (10.5-14.5); WBC 7.1 thou/uL (4.0-11.0)
[2021-02-16 04:24] LABS: CALCIUM 9.1 mg/dL (8.5-10.1); CREATININE 1.1 mg/dL (0.6-1.3); POTASSIUM 3.6 mmol/L (3.5-5.1)
[2021-02-16 06:17] LABS: ANISOCYTOSIS 1+; PLATELET ESTIMATE ADEQUATE
--- NOTE | 2021-02-16 06:33 | NUR ---
NO ACUTE CHANGES THROUGHOUT SHIFT. SEE CHARTING FOR DETAILS. ALL ROUNDINGS COMPLETED, ALL NEEDS MET. BED LOCKED AND IN LOW POSITION. CALL LIGHT AND PERSONAL ITEMS IN REACH. PT SLEPT THROUGH MOST OF THE NIGHT, PT USED BIPAP FOR APPROX. 4 HOURS THROUGH THE NIGHT.
[2021-02-16 08:00] VITALS: BP 102/54
--- NOTE | 2021-02-16 10:36 | NUR ---
ASSUMED CARE OF PT AT 0730. PT SITTING AT EDGE OF BED WAITING FOR BREAKFAST. A&0X4, DENIES ANY PAIN OR SHORTNESS OF BREATH AT THIS TIME. ON 2L NC SAT UPPER 90'S. TRACING SR/ST ON THE WARP SPOOLER. PT UP SBA TO BATHROOM. PT ON 1500 ML FLUID RESTRICTION. PT GOAL FOR TODAY IS DIURESIS AND DISCHARGE PLANNING. AM ASSESSMENT CHARTED. MEDICATIONS PER DEC. PT REPOSITIONS SELF. HOURLY ROUNDING OBSERVED. BED IN LOW POSITION. CALL LIGHT WITHIN REACH WILL CONTINUE PLAN OF CARE.
[2021-02-16 12:55] VITALS: BP 103/53
--- NOTE | 2021-02-16 14:46 | NUR ---
Cards following, Pt to dc when cleared. CM faxed referral to [facility] to see if Pt will qualify for a cpap per pulm. Resume HH at dc. Discuss portable tank option.
[2021-02-16 18:54] VITALS: BP 98/47
[2021-02-17 00:15] VITALS: BP 91/52
[2021-02-17 04:18] VITALS: BP 100/55
[2021-02-17 04:31] LABS: CALCIUM 9.3 mg/dL (8.5-10.1); POTASSIUM 3.3 mmol/L (3.5-5.1)
--- NOTE | 2021-02-17 06:45 | NUR ---
NO ACUTE CHANGES THROUGHOUT SHIFT. SEE CHARTING FOR DETAILS. ALL ROUNDINGS COMPLETED, ALL NEEDS MET. BED LOCKED AND IN LOW POSITION. CALL LIGHT AND PERSONAL ITEMS IN REACH. PT WAS ABLE TO SUCCESSFULLY UTILIZE BIPAP FROM APPROX [phone].
[2021-02-17 08:46] VITALS: BP 110/55
[2021-02-17] MEDS ORDERED: CEFDINIR300 MG PO (10:11)
[2021-02-17 11:17] VITALS: BP 110/55
[2021-02-17 11:28] VITALS: BP 110/55
--- NOTE | 2021-02-17 11:47 | NUR ---
Pt discharged to home today. Faxed HH orders to [facility]. CM to fax cpap order to Jose, once pulm is able to sign.
--- NOTE | 2021-02-17 11:53 | NUR ---
PT DISCHARGED HOME WITH NO QUESTIONS OR CONCERNS IV AND MONITOR DISCONTINUED
== END 2021-02-17 11:54 | disposition home health service (06) | DRG 177 ==
LOC: M.ERS 12:10 → M.TBA-ER 16:38 → M.2W 16:38
PROVIDERS: Internal Medicine; Internal Medicine Cardiovascular Disease; Internal Medicine Critical Care Medicine; Internal Medicine Hematology & Oncology; Nurse Practitioner Family; ADMIT Family Medicine; ATTEND Family Medicine
PROC: 5A0935A Assistance with Respiratory Ventilation, Less than 24 Consecutive Hours, High Flow/Velocity Cannula (ICD-10-PCS; principal; 2021-02-10)
PROC: 0W9B3ZZ Drainage of Left Pleural Cavity, Percutaneous Approach (ICD-10-PCS; 2021-02-11)
PROC: 5A0935A Assistance with Respiratory Ventilation, Less than 24 Consecutive Hours, High Flow/Velocity Cannula (ICD-10-PCS; 2021-02-11)
PROC: 5A09357 Assistance with Respiratory Ventilation, Less than 24 Consecutive Hours, Continuous Positive Airway Pressure (ICD-10-PCS; 2021-02-16)
DX: J15.6 Pneumonia due to other Gram-negative bacteria (principal); I50.23 Acute on chronic systolic (congestive) heart failure; J96.01 Acute respiratory failure with hypoxia; I13.0 Hypertensive heart and chronic kidney disease with heart failure and stage 1 through stage 4 chronic kidney disease, or unspecified chronic kidney disease; J44.0 Chronic obstructive pulmonary disease with (acute) lower respiratory infection; D61.818 Other pancytopenia; N39.0 Urinary tract infection, site not specified; Z20.822 Contact with and (suspected) exposure to COVID-19; I25.10 Atherosclerotic heart disease of native coronary artery without angina pectoris; E78.5 Hyperlipidemia, unspecified; E11.42 Type 2 diabetes mellitus with diabetic polyneuropathy; G89.29 Other chronic pain; M54.9 Dorsalgia, unspecified; I27.20 Pulmonary hypertension, unspecified; F17.210 Nicotine dependence, cigarettes, uncomplicated; E11.22 Type 2 diabetes mellitus with diabetic chronic kidney disease; G47.33 Obstructive sleep apnea (adult) (pediatric); D50.9 Iron deficiency anemia, unspecified; N18.30 Chronic kidney disease, stage 3 unspecified; Z95.5 Presence of coronary angioplasty implant and graft; Z90.49 Acquired absence of other specified parts of digestive tract; Z86.14 Personal history of Methicillin resistant Staphylococcus aureus infection; I25.2 Old myocardial infarction; Z79.51 Long term (current) use of inhaled steroids; Z88.8 Allergy status to other drugs, medicaments and biological substances

== ENCOUNTER 2021-03-28 09:32 | Inpatient (IN) | payer OTHER ==
[~2021-03-28] VITALS: Ht 165.1 cm; Wt 86.2 kg
[~2021-03-28 09:32] MED LIST changes: +CEFDINIR300 MG PO; +LOPRESSOR50 MG PO
[2021-03-28 09:40] VITALS: BP 106/47
[2021-03-28 10:10] LABS: HEMATOCRIT 24.5 % (37.0-47.0); MCH 29.1 pg (26.0-34.0); MCHC 32.8 g/dL (28.0-37.0); MCV 88.7 fL (80.0-100.0); MPV 7.6 fl. (7.2-11.1); RBC 2.76 mil/uL (4.20-5.00); RDW-CV 18.4 % (10.5-14.5); WBC 4.3 thou/uL (4.0-11.0)
[2021-03-28 10:17] LABS: CALCIUM 8.9 mg/dL (8.5-10.1); CREATININE 1.3 mg/dL (0.6-1.3); POTASSIUM 4.3 mmol/L (3.5-5.1)
[2021-03-28 10:27] LABS: ALBUMIN 2.9 g/dL (3.4-5.0); TOTAL BILIRUBIN 0.3 mg/dL (<0.1-1.0); TOTAL PROTEIN 7.4 g/dL (6.4-8.2)
[2021-03-28 11:02] LABS: URINE BILIRUBIN NEGATIVE (Negative); URINE BLOOD NEGATIVE (Negative); URINE CLARITY CLEAR; URINE COLOR YELLOW; URINE GLUCOSE-RANDOM NEGATIVE (Negative); URINE KETONES NEGATIVE (Negative); URINE LEUKOCYTES NEGATIVE (Negative); URINE NITRITE NEGATIVE (Negative); URINE PROTEIN NEGATIVE (Negative); URINE UROBILINOGEN 0.2 E.U./dl (0.2-1.0)
[2021-03-28 13:35] VITALS: BP 111/62
[2021-03-28 14:50] VITALS: BP 117/63
[2021-03-28] MEDS ORDERED: AMARYL4 MG PO (15:19)
[2021-03-28] MEDS ORDERED: JANUVIA100 MG PO (15:20)
[2021-03-28] MEDS ORDERED: ENTRESTO 24 MG1 EACH PO (15:21)
[2021-03-28] MEDS ORDERED: OMEPRAZOLE40 MG PO (15:21)
--- NOTE | 2021-03-28 15:39 | EKG ---
[place] [address] ELECTROCARDIOGRAM REPORT Name: DM HERNADEZ Room: [address] ADM IN M.R.#: [id number] Admission: 03/28/21 Attend Phys: Roni Barkley Discharge: Date of : 62 Date of Service: 03/28/21 1002 Report #: [id number] THIS REPORT FOR: //name// [facility] ED Test Date: 2021-03-28 Test Time: 10:02:53 Pat Name: DM HERNADEZ Department: Room: [facility] Gender: F Phys Asst: CUCO : 1960 Requested By: James Mcdowell Order Number: [id number] MD: Ryan Barajas Measurements Intervals [place] Rate: 88 P: 45 MD: 157 QRS: -9 QRSD: 116 T: 109 QT: 382 QTc: 463 Interpretive Statements Sinus rhythm Incomplete left bundle branch block Compared to ECG 02/12/2021 19:28:38 Incomplete left bundle-branch block now present Sinus tachycardia no longer present Electronically Signed On 03-28-2021 15:38:50 CDT by Ryan Barajas [email or web address] <ELECTRONICALLY SIGNED> By: Ryan Barajas MD, [facility] 03/28/21 1538 1002 1002 Ryan Barajas MD, FAC /EPI
[2021-03-28 16:28] VITALS: BP 109/45
[2021-03-28] MEDS ORDERED: PULMICORT0.5 MG/21 INH (17:00)
[2021-03-28] MEDS ORDERED: LIPITOR40 MG PO (17:00)
[2021-03-28 20:00] VITALS: BP 115/60
[2021-03-28 23:20] VITALS: BP 98/45
[2021-03-29 04:01] VITALS: BP 101/47
[2021-03-29 08:00] VITALS: BP 115/55
[2021-03-29 10:23] LABS: APTT 24.5 Seconds (25.0-31.3); CALCIUM 9.4 mg/dL (8.5-10.1); CREATININE 1.3 mg/dL (0.6-1.3); PROTIME 10.9 Seconds (9.20-11.50); TROPONIN-I LEVEL 0.31 ng/mL (<0.06)
[2021-03-29 12:00] VITALS: BP 98/56
[2021-03-29 16:00] VITALS: BP 102/50
[2021-03-29 20:00] VITALS: BP 110/54
[2021-03-30] VITALS: BP 91/59
[2021-03-30 04:00] VITALS: BP 106/58
[2021-03-30 06:21] LABS: ABSOLUTE EOSINOPHILS 0.1 thou/uL (0.0-0.7); ABSOLUTE LYMPHOCYTES 0.7 thou/uL (0.8-5.3); ABSOLUTE MONOCYTES 0.2 thou/uL (0.0-1.2); ABSOLUTE NEUTROPHILS 3.4 thou/uL (1.6-8.1); BASOPHILS 0.5 %; EOSINOPHILS 1.3 %; HEMATOCRIT 23.2 % (37.0-47.0); HEMOGLOBIN 7.4 gm/dL (12.0-15.0); MCV 90.6 fL (80.0-100.0); MONOCYTES 4.6 %; MPV 7.7 fl. (7.2-11.1); NUCLEATED RBCS 0 /100WBC; PLATELET COUNT* 195 thou/uL (150-400); POLYS 77.6 %; RBC 2.56 mil/uL (4.20-5.00); RDW-CV 18.5 % (10.5-14.5); WBC 4.4 thou/uL (4.0-11.0)
[2021-03-30 06:31] LABS: ANION GAP 3 mmol/L (7-16); BUN 32 mg/dL (7-18); CALCIUM 8.7 mg/dL (8.5-10.1); CHLORIDE 101 mmol/L (98-107); CHOLESTEROL 101 mg/dL (<200); CO2 33 mmol/L (21-32); CREATININE 1.3 mg/dL (0.6-1.3); GLUCOSE 187 mg/dL (70-99); HDL CHOLESTEROL 26 mg/dL (>40); LDL CHOLESTEROL 58 mg/dL (<100); POTASSIUM 4.1 mmol/L (3.5-5.1); SODIUM 137 mmol/L (136-145); TC:HDL 3.9 Ratio (Not establshd); TRIGLYCERIDE 87 mg/dL (<150); VLDL 17 mg/dL (<40)
[2021-03-30 06:40] LABS: SERUM ASSESSMENT Clear
[2021-03-30 08:00] VITALS: BP 104/60
[2021-03-30 10:35] VITALS: BP 104/60
== END 2021-03-30 11:45 | disposition home or self-care (01) | DRG 177 ==
LOC: M.ERS 09:32 → M.2W 11:11 → M.TBA-ER 11:11 → M.2W 14:29
PROVIDERS: Emergency Medicine; Radiology Diagnostic Radiology; Registered Nurse; ADMIT Internal Medicine; ATTEND Internal Medicine
PROC: 0W9B3ZZ Drainage of Left Pleural Cavity, Percutaneous Approach (ICD-10-PCS; principal; 2021-03-29)
DX: J15.6 Pneumonia due to other Gram-negative bacteria (principal); I50.43 Acute on chronic combined systolic (congestive) and diastolic (congestive) heart failure; E44.1 Mild protein-calorie malnutrition; J91.8 Pleural effusion in other conditions classified elsewhere; I13.0 Hypertensive heart and chronic kidney disease with heart failure and stage 1 through stage 4 chronic kidney disease, or unspecified chronic kidney disease; J44.0 Chronic obstructive pulmonary disease with (acute) lower respiratory infection; E78.5 Hyperlipidemia, unspecified; I95.9 Hypotension, unspecified; G89.29 Other chronic pain; M54.9 Dorsalgia, unspecified; E11.42 Type 2 diabetes mellitus with diabetic polyneuropathy; E11.22 Type 2 diabetes mellitus with diabetic chronic kidney disease; N18.9 Chronic kidney disease, unspecified; I25.10 Atherosclerotic heart disease of native coronary artery without angina pectoris; I25.5 Ischemic cardiomyopathy; Z20.822 Contact with and (suspected) exposure to COVID-19; Z79.4 Long term (current) use of insulin; Z90.49 Acquired absence of other specified parts of digestive tract; Z79.899 Other long term (current) drug therapy; Z88.8 Allergy status to other drugs, medicaments and biological substances; Z87.891 Personal history of nicotine dependence; Z95.5 Presence of coronary angioplasty implant and graft; Z68.31 Body mass index [BMI] 31.0-31.9, adult